=== PATIENT | male | born 1935 | race Caucasian/White ===

== ENCOUNTER → 2020-11-23 12:59 | Outpatient (BNVA) | payer MEDICARE, OTHER, SELFPAY | PROVIDERS: Family Provider Family Medicine; Referring Provider Family Medicine; Visit Provider Podiatrist Foot & Ankle Surgery | DX: M79.672 Pain in left foot (principal); M79.671 Pain in right foot | CPT/HCPCS: 73630 ==

== ENCOUNTER 2020-12-29 15:08 | Outpatient (CLI) | payer MEDICARE, OTHER, SELFPAY | END 2020-12-29 15:09 | disposition home or self-care (01) | LOC: SPT 15:09 | PROVIDERS: Family Provider Family Medicine; Visit Provider Podiatrist Foot & Ankle Surgery | DX: Z46.89 Encounter for fitting and adjustment of other specified devices (principal); M72.2 Plantar fascial fibromatosis | CPT/HCPCS: 97760; L4397 ==

== ENCOUNTER 2021-02-14 08:29 | Outpatient (CLI) | payer MEDICARE, OTHER, SELFPAY ==
[2021-02-14 10:09] LABS: Basophils % 0.6 %; Eosinophils # 0.2 10^3/uL (0.0-0.8); Eosinophils % 2.8 %; Hematocrit 44.4 % (42.0-52.0); Hemoglobin 14.7 g/dL (11.7-16.6); Lymphocytes # 1.3 10^3/uL (0.8-4.8); Lymphocytes % 19.3 %; Mean Corpuscular HGB Conc 33.1 g/dL (30.0-36.0); Mean Corpuscular Volume 96.5 fl (80-94); Mean Platelet Volume 11.3 fL (7.4-10.4); Monocytes # 0.5 10^3/uL (0.2-0.9); Monocytes % 7.6 %; Neutrophils # 4.52 10^3/uL (1.8-7.7); Neutrophils % 69.1 %; Nucleated Red Blood Cells % 0 %; Platelet Count 125 10^3/cmm (130-400); White Blood Count 6.5 10^3/uL (4.0-10.0)
[2021-02-14 10:10] LABS: Calcium 8.2 mg/dL (8.5-10.5)
[2021-02-14 10:14] LABS: Complement C3 120 mg/dL (90-180)
[2021-02-14 10:18] LABS: Parathyroid Hormone 208.3 pg/mL (15-65)
[2021-02-14 10:42] LABS: Bacteria Urine TRACE /hpf; Bilirubin Urine Neg (Negative); Blood Urine 2+ (Negative); Glucose Urine UA Norm (Normal); Ketones Urine 1+ (Negative); Leukocyte Esterase Urine Negative (Negative); Nitrate Urine Negative (Negative); Protein Urine 2+ (Negative); RBC Urine 0-4 /hpf (0-2); Urine Appearance Clear (CLEAR); Urine Color Yellow (Yellow); Urobilinogen Urine Norm (Negative); WBC Urine 0-4 /hpf (0-5); pH Urine 5 (5-7)
[2021-02-14 10:43] LABS: Creatinine Urine, Random 164 mg/dL (39-259)
[2021-02-14 10:56] LABS: Microalbum Creatinine Ratio Ur 311 mg/dL (0-20); Microalbumin Random Urine 51 ug/dL (0-20)
[2021-02-14 11:13] LABS: 25 Hydroxy Vitamin D 12 ng/mL (30-100)
[2021-02-15 15:08] LABS: KAPPA LIGHT CHAIN, FREE, SERUM 197.9 mg/L (3.3-19.4)
[2021-02-15 16:13] LABS: ALBUMIN 3.8 g/dL (3.8-4.8); ALPHA 1 GLOBULIN 0.3 g/dL (0.2-0.3); ALPHA 2 GLOBULIN 0.7 g/dL (0.5-0.9); BETA 1 GLOBULIN 0.4 g/dL (0.4-0.6); BETA 2 GLOBULIN 0.4 g/dL (0.2-0.5); GAMMA GLOBULIN 1.3 g/dL (0.8-1.7)
[2021-02-21 17:48] LABS: ANCA Screen NEGATIVE (NEGATIVE)
== END 2021-02-14 08:30 | disposition home or self-care (01) ==
PROVIDERS: PCP Family Medicine; Visit Provider Internal Medicine Nephrology
DX: N18.4 Chronic kidney disease, stage 4 (severe) (principal)
CPT/HCPCS: 36415; 81001; 82044; 82306; 82310; 83516; 83883; 83970; 84155; 84165; 85025; 86160

== ENCOUNTER 2021-04-12 10:03 | Outpatient (CLI) | payer MEDICARE, OTHER, SELFPAY ==
--- NOTE | 2021-04-12 10:09 | US_ITS ---
WS: [id number] RENAL ULTRASOUND HISTORY: CHRONIC KIDNEY DZ STAGE 4 COMPARISON: None available. TECHNIQUE: 2-D and color Doppler imaging of the kidney submitted. Right kidney: Prior RIGHT nephrectomy. No mass noted at the renal bed. Left kidney: 11.3 cm x 5.8 cm x 6.6 cm. Normal size kidney. Echogenicity throughout the kidney is greater than the liver. Poor cortical medul alessandra differentiation. Cortex remains normal at 1.8 cm. No hydronephrosis. No mass identified. Aorta: Mild atherosclerosis. No aneurysm. Urinary Bladder: Normal distention. US/US renal BI* [id number] IMPRESSION: 1. Status post RIGHT nephrectomy. 2. Normal size LEFT kidney but there is increased echogenicity suggesting [facility] renal disease.
== END 2021-04-12 10:04 | disposition home or self-care (01) ==
LOC: RAD 10:08
PROVIDERS: PCP Family Medicine; Visit Provider Internal Medicine Nephrology
DX: N18.4 Chronic kidney disease, stage 4 (severe) (principal); Z90.5 Acquired absence of kidney
CPT/HCPCS: 76770

== ENCOUNTER 2021-08-31 14:34 | Oncology outpatient (recurring) (ONCR) | payer MEDICARE, OTHER, SELFPAY | END 2021-08-31 23:59 | disposition home or self-care (01) | PROVIDERS: PCP Family Medicine; Visit Provider Internal Medicine Medical Oncology | DX: D47.2 Monoclonal gammopathy (principal); R74.8 Abnormal levels of other serum enzymes; R79.89 Other specified abnormal findings of blood chemistry; Z79.899 Other long term (current) drug therapy | CPT/HCPCS: 99204 ==

== ENCOUNTER 2022-10-23 12:54 | Inpatient (IN) | payer MEDICARE, OTHER, SELFPAY ==
[2022-10-23] VITALS (11 sets, daily range): BP systolic 105–148; BP diastolic 55–88; PULSE 60–82; RESP 16–20; TEMP 36.5–36.8; O2SAT 91–98; BMI 25.6
--- NOTE | 2022-10-23 13:01 | ECG_ITS ---
[facility] Test Date: 2022-10-23 Pat Name: Elvin Sanchez Department: Room: Gender: Male Solution Lead: : 1935 Requested By: Lokesh Brice Order Number: [id number] Chuck MD: Hong Lockhart M.D. Measurements Intervals [place] Rate: 81 P: 36 NE: 150 QRS: 13 QRSD: 82 T: 55 QT: 334 QTc: 388 Interpretive Statements SINUS RHYTHM LOW QRS VOLTAGE IN EXTREMITY LEADS [QRS DEFLECTION < 0.5 mV IN LIMB LEADS] ST ELEVATION, CONSIDER INFERIOR INJURY [MARKED ST ELEVATION W/O NORMALLY INFLECTED T-WAVE IN II/aVF] ACUTE ME No previous ECG available for comparison Electronically Signed On 10-23-2022 16:11:49 CDT by Hong Lockhart M.D. [id number]
--- NOTE | 2022-10-23 13:11 | XRR_ITS ---
PROCEDURE INFORMATION: Exam: XR Chest Exam date and time: 10/23/2022 1:54 PM Age: 86 years old Clinical indication: Pain; Angina pectoris; Additional info: Chest pain TECHNIQUE: Imaging protocol: Radiologic exam of the chest. Views: 1 view. COMPARISON: No relevant prior studies available. FINDINGS: Lungs: Unremarkable. No consolidation. Pleural spaces: Unremarkable. No pleural effusion. No pneumothorax. Heart/Mediastinum: Unremarkable. No cardiomegaly. Bones/joints: Unremarkable. XR/XR chest 1V portable [id number] IMPRESSION: No acute findings.
[2022-10-23] MEDS: aspirin 81 mg Chew Tablet 324 MG PO (13:17)
[2022-10-23] MEDS: heparin 5,000 unit/mL INJ 1 mL 4000 UNIT IVP (13:27)
[2022-10-23] MEDS: clopidogrel 300 mg Tablet 600 MG PO (13:28)
[2022-10-23 13:45] LABS: Basophils # 0.1 10^3/uL (0.0-0.1); Basophils % 0.7 %; Eosinophils # 0.2 10^3/uL (0.0-0.8); Eosinophils % 2.5 %; Hematocrit 44.3 % (42.0-52.0); Hemoglobin 14.4 g/dL (11.7-16.6); Lymphocytes # 1.5 10^3/uL (0.8-4.8); Lymphocytes % 17.6 %; Mean Corpuscular HGB Conc 32.5 g/dL (30.0-36.0); Mean Corpuscular Hemoglobin 31.6 pg (28.0-34.0); Mean Corpuscular Volume 97.1 fl (80-94); Mean Platelet Volume 11.4 fL (7.4-10.4); Monocytes # 0.7 10^3/uL (0.2-0.9); Monocytes % 8.4 %; Neutrophils # 5.93 10^3/uL (1.8-7.7); Neutrophils % 70.6 %; Nucleated Red Blood Cells % 0 %; Platelet Count 142 10^3/cmm (130-400); Red Blood Count 4.56 10^6/uL (4.1-5.3); Red Cell Distribution Width 13.9 % (12.1-15.1); White Blood Count 8.4 10^3/uL (4.0-10.0)
[2022-10-23 13:58] LABS: INR 1.03 (0.8-1.2)
[2022-10-23 13:59] LABS: Partial Thromboplastin Time 39.6 SECONDS (23.9-36.7)
[2022-10-23 14:11] LABS: Alanine Aminotransferase 9 U/L (0-41); Albumin Level 4.4 g/dL (3.5-5.2); Alkaline Phosphatase 69 U/L (40-130); Anion Gap 16.5 (5-19); Aspartate Amino Transferase 20 U/L (0-40); Blood Urea Nitrogen 32 mg/dL (8-23); Carbon Dioxide 20 mmol/L (22-29); Chloride 108 mmol/L (98-107); Creatine Phosphokinase 124 U/L (39-308); Glucose 122 mg/dL (65-115); NT Pro B Type Natriuretic Pept 3582 pg/mL (0-450); Osmolality Calculated 296 mOsm/kg (285-295); Potassium 5.5 mmol/L (3.5-5.1); Sodium 139 mmol/L (136-145); Total Bilirubin 0.4 mg/dL (0.15-1.2); Total Protein 7.4 g/dL (6.6-8.7)
[2022-10-23 14:12] LABS: Creatinine Clr Calc Pharmacy 20.5872
[2022-10-23 14:14] LABS: Troponin(5th) Baseline 717 ng/L (0-15)
[2022-10-23 14:27] LABS: CKMB 11.7 ng/mL (0-10.4); CKMB Relative Index 9.4 % (0.0-5.3)
--- NOTE | 2022-10-23 14:51 | P.HP_ITS ---
Providers/Chief Complaint Admitting Physician: Sulma Daniels MD Primary Care Provider: Phill Howard MD Chief Complaint: chest pain/pressure History of Present Illness Elvin Sanchez is a 86 year old male who presented to the emergency room with chief complaint of some chest tightness and pressure. He has no personal history of heart disease beyond development of some high blood pressure secondary to chronic kidney disease. He takes amlodipine daily. He has not had previous issues with chest pressure or discomfort but this past Sunday while eating pizza he had sudden onset of a tightness across his chest associated with some nausea. He decided to take some nitroglycerin that was at the house because of the chest pain and got immediate relief. The nitroglycerin belonged to his who a couple of years ago, not him. He felt okay after that. He let his family know about the pain on Sunday at [facility]. He had no chest pain or pressure on Sunday. Today when he got up he was not feeling very good. Despite this he went and had breakfast and made a plan to mow the yard today. He uses a riding lawnmower. At the beginning of the time in which she was cutting the grass he felt uncomfortable . He continued to cut the grass, completing it but during this timeframe the tightness in his chest became more significant. He said it was hurting quite a bit and he told his daughter about it when she stopped by. This time he had no associated symptoms. The daughter called Dr. Howard's clinic and they urged him to come to the emergency room. In the emergency room EKG showed ST segment changes in leads III and aVF and initial troponin was 717. At the present time patient is chest pain-free. He has never had anything like this before. He does have a history of gastroesophageal reflux disease for which he takes a PPI regularly but says this is nothing like the usual heartburn or indigestion that he might experience from time to time. In the emergency room he was given aspirin, Plavix and started on a heparin drip. Nitropaste was also placed. Request was made for admission for further evaluation and treatment. It should be noted that patient has a single kidney due to nephrectomy for renal cell cancer and chronic kidney disease stage IV with baseline creatinine around 3. Review of Systems General: Reports: Other (ROS as per HPI or as otherwise noted here) Const: Reports: fatigue; Denies: fever(s) or change in weight Eyes: Reports: change in vision (Vision not what it used to be but seems better with eyedrops for glaucoma); Denies: eye discomfort Card: Reports: edema (Left lower leg always swollen since had blood clot years ago); Denies: palpitations, dyspnea on exertion or orthopnea Resp: Denies: dyspnea GI: Denies: vomiting, constipation, hematochezia or melena : Denies: difficulty urinating or hematuria Skin/Breast: Reports: sores (Some minor sores) Neuro: Denies: numbness in extremities or weakness in extremities Mina/Lymph: Reports: easy bruising (Especially on arms) Medications/Allergies Home Medications Medication Instructions Recorded Confirmed Last Taken Type omeprazole 20 mg capsule,delayed 20 mg PO QAM 11/23/20 10/23/22 10/23/22 08:00 History release Night splint to left #1 ea 12/29/20 10/23/22 Unknown Rx amlodipine 10 mg tablet 5 mg PO QAM 10/23/22 10/23/22 10/23/22 08:00 History cholecalciferol (vitamin D3) 25 25 mcg PO QAM 10/23/22 10/23/22 10/23/22 History mcg (1,000 unit) tablet (Vitamin D3) latanoprost 0.005 % eye drops 1 drp ophthalmic (eye) BEDTIME 10/23/22 10/23/22 10/22/22 History Allergies Allergy/AdvReac Type Severity Reaction Status Date / Time Sulfa (Sulfonamide Allergy Intermediate Rash Verified 10/23/22 13:41 Antibiotics) PFSH Acute PFSH: Medical History (Updated 10/23/22 @ 17:29 by Sulma Daniels MD) CKD (chronic kidney disease) stage 4, GFR 15-29 ml/min GERD (gastroesophageal reflux disease) Glaucoma History of deep venous thrombosis (DVT) of distal vein of left lower extremity History of renal cell cancer Hyperparathyroidism due to renal insufficiency Monoclonal gammopathy elevated kappa/lambda ratio, evaluated by Dr Meyer in 08/2021, but made informed decision not to pursue further evaluation or consider potential treatment Secondary hypertension due to renal disease Single kidney Vitamin D deficiency due to chronic kidney disease Surgical History (Updated 10/23/22 @ 17:14 by Sulma Daniels MD) History of right nephrectomy (2003) S/P TURP (transurethral resection of prostate) x 2 Social History (Updated 10/23/22 @ 17:15 by Sulma Daniels MD) Smoking and tobacco status: current every day smoker smokeless tobacco Smokeless tobacco user: chewing tobacco Smokeless tobacco details: continues to use smokeless tobacco, quit smoking tobacco years ago Alcohol intake: never Substance/Drug Use: never Lives independently: Yes Household members: none Marital status: / Vitals/I&O/Wt Last Vital Signs Temp 98.0 F 10/23/22 13:03 Pulse 72 10/23/22 13:03 Resp 16 10/23/22 13:03 BP 143/83 10/23/22 13:03 Pulse Ox 98 10/23/22 13:03 O2 Del Method Room Air 10/23/22 13:03 Weight last 48 hrs Weight 85.729 kg Physical Exam Narrative: Patient is awake and alert, able to provide history himself. Oriented to person place and situation. Normocephalic. Extraocular movements are intact. Oropharynx with moist mucous membranes. Some tobacco noted around the teeth. Dentition intact. Neck is supple. Lungs are clear to auscultation bilaterally without any rales rhonchi or wheezes noted. Cardiovascular exam reveals a regular rate and rhythm without any murmurs gallops or rubs. No JVD noted. Pulses are 1+ and equal x4. Abdomen is soft, nontender with positive bowel sounds. Left lower extremity with pitting edema and larger in diameter than right lower extremity at mid calf. Left posterior calf tender to palpation as well. Loss of hair noted in a few hyperpigmented areas to both distal legs left more so than right. Brisk capillary refill bilaterally. Speech is clear, face and smile symmetric, moves all extremities, sensation intact to light touch both feet. Data 10/23/22 12:18 10/23/22 12:18 Other Labs: Radiology Impressions Chest X-Ray 10/23/22 13:11 IMPRESSION: No acute findings. Laboratory Results WBC 8.4 10^3/uL (4.0-10.0) 10/23/22 12:18 RBC 4.56 10^6/uL (4.1-5.3) 10/23/22 12:18 Hgb 14.4 g/dL (11.7-16.6) 10/23/22 12:18 Hct 44.3 % (42.0-52.0) 10/23/22 12:18 MCV 97.1 fl (80-94) H 10/23/22 12:18 MCH 31.6 pg (28.0-34.0) 10/23/22 12:18 MCHC 32.5 g/dL (30.0-36.0) 10/23/22 12:18 RDW 13.9 % (12.1-15.1) 10/23/22 12:18 Plt Count 142 10^3/cmm (130-400) 10/23/22 12:18 MPV 11.4 fL (7.4-10.4) H 10/23/22 12:18 Neut % (Auto) 70.6 % 10/23/22 12:18 Lymph % (Auto) 17.6 % 10/23/22 12:18 [place] % (Auto) 8.4 % 10/23/22 12:18 Eos % (Auto) 2.5 % 10/23/22 12:18 Baso % (Auto) 0.7 % 10/23/22 12:18 Neut # (Auto) 5.93 10^3/uL (1.8-7.7) 10/23/22 12:18 Lymph # (Auto) 1.5 10^3/uL (0.8-4.8) 10/23/22 12:18 [place] # (Auto) 0.7 10^3/uL (0.2-0.9) 10/23/22 12:18 Eos # (Auto) 0.2 10^3/uL (0.0-0.8) 10/23/22 12:18 Baso # (Auto) 0.1 10^3/uL (0.0-0.1) 10/23/22 12:18 Nucleated RBC % (auto) 0 % 10/23/22 12:18 Nucleated RBCs # 0.0 /100WBC 10/23/22 12:18 PT 13.80 SECONDS (12.1-14.9) 10/23/22 12:18 INR 1.03 (0.8-1.2) 10/23/22 12:18 APTT 39.6 SECONDS (23.9-36.7) H 10/23/22 12:18 Sodium 139 mmol/L (136-145) 10/23/22 12:18 Potassium 5.5 mmol/L (3.5-5.1) H 10/23/22 12:18 Chloride 108 mmol/L (98-107) H 10/23/22 12:18 Carbon Dioxide 20 mmol/L (22-29) L 10/23/22 12:18 Anion Gap 16.5 (5-19) 10/23/22 12:18 BUN 32 mg/dL (8-23) H 10/23/22 12:18 Creatinine 3.0 mg/dL (0.7-1.2) H 10/23/22 12:18 GFR Calculation Not Reportable 10/23/22 12:18 Glucose 122 mg/dL (65-115) H 10/23/22 12:18 Calculated Osmolality 296 mOsm/kg (285-295) H 10/23/22 12:18 Calcium 9.0 mg/dL (8.5-10.5) 10/23/22 12:18 Total Bilirubin 0.4 mg/dL (0.15-1.2) 10/23/22 12:18 AST 20 U/L (0-40) 10/23/22 12:18 ALT 9 U/L (0-41) 10/23/22 12:18 Alkaline Phosphatase 69 U/L (40-130) 10/23/22 12:18 Creatine Kinase 124 U/L (39-308) 10/23/22 12:18 CK-MB (CK-2) 11.7 ng/mL (0-10.4) H 10/23/22 12:18 CK-MB (CK-2) Rel Index 9.4 % (0.0-5.3) H 10/23/22 12:18 Troponin T Baseline 717 ng/L (0-15) H* 10/23/22 12:18 NT-Pro-B Natriuret Pep 3582 pg/mL (0-450) H 10/23/22 12:18 Total Protein 7.4 g/dL (6.6-8.7) 10/23/22 12:18 Albumin 4.4 g/dL (3.5-5.2) 10/23/22 12:18 Globulin 3.0 g/dL (1.3-4.6) 10/23/22 12:18 A&P Assessment and plan (1) Acute coronary syndrome: As evidenced by chest pain relieved with nitroglycerin, EKG changes and elevated troponin and CK-MB fraction. I suspect patient's initial event was likely Sunday when he first had pain, though difficult to say given that he completed mowing the yard today after the onset of pain. No prior history of coronary artery disease but does have secondary hypertension from renal disease and continues to chew tobacco. Pain was relieved with nitroglcerin (that was not his). (2) Elevated brain natriuretic peptide (BNP) level: Without a history of CHF. Does not describe orthopnea, PND or dyspnea on exertion currently. Has some lower extremity edema but is primarily in the left lower extremity and has been present for many years since he had a blood clot in that leg sometime ago. No prior values for comparison. (3) CKD (chronic kidney disease) stage 4, GFR 15-29 ml/min: Baseline creatinine around 3, has associated hyperparathyroidism, vitamin D deficiency and secondary hypertension. Was found to have monoclonal gammopathy during evaluation but made informed decision not to pursue further work-up or treatment consideration. Follows with nephrology outpatient. (4) Single kidney: Secondary to renal cell carcinoma treated with nephrectomy (5) Secondary hypertension due to renal disease: On chronic amlodipine (6) Glaucoma: On chronic latanoprost (7) GERD (gastroesophageal reflux disease): On chronic PPI Plan Mildly elevated blood sugar without a history of diabetes History of left lower extremity DVT with current left lower extremity edema and calf pain noted Inpatient admission Heparin drip has been initiated Aspirin, plavix, statin, nitrates Cardiology consultation, discussed with Dr. Oconnor Given single kidney and chronic kidney disease stage IV combined with patient's age, medical management may be the best approach. He would not want to consider hemodialysis. Discussed iinterplay of cardiac and renal disease and management of current symptoms/findings with patient and his daughter, answered questions they had. Explained further discussion will be had with Dr Oconnor and possible nephrology, depending on clinical course and options considered. Echocardiogram has been ordered Holding on initiation of beta-blockade in the event stress testing is considered Low rate of IV fluids, monitoring respiratory status closely, in the event cardiac catheterization is considered and given current hyperkalemia Monitor need for renal consultation during hospital stay, currently at baseline functioning per available information Hold home amlodipine while on other medications; anticipate this may be discontinued at discharge in favor of other pharmacological options for management in light of presentation Check lipid panel and A1c Monitor urine output closely Continue home latanoprost Continue home PPI Venous duplex of the left lower extremity Supportive care otherwise VTE prophylaxis: SCDs, currently on heparin drip GI Prophylaxis: Home PPI ordered Telemetry: Telemetry monitoring for arrhythmias in the setting of acute coronary syndrome [place]: Not currently indicated, currently monitoring renal function and urine output as could change Line(s): Peripheral IVs Disposition plan: Currently anticipate discharge home with outpatient follow-up with primary care provider and cardiology plus nephrology. Patient's goal is to get back home and maintain his independence as long as possible. Code Status: Allow natural as per patient's wishes which were discussed in the presence of his daughter and both were very clear about this Attestations Medical Necessity Statement*: Anticipated stay greater than two midnights in this 86-year-old who is quite independent presenting with 2 episodes of chest pain in the last few days found to have elevated troponin and EKG changes consistent with acute coronary syndrome. He has no prior history of coronary artery disease but does have chronic kidney disease stage IV and a single kidney which complicates current evaluation and management options as well as future treatment, as does his advanced age and limited lifetime exposure to various medications. Plans are as noted. Coding Level of Care Code 39871 High MDM includes number and complexity of problems actively addressed during encounter, amount and/or complexity of data reviewed/ordered [ previous or external records, resulted lab(s)/test(s), ordered lab(s)/test(s), independent historian (Daughter) and other healthcare professional discussion (Dr Oconnor)] and described risk of complication, morbidity or mortality of management (heparin drip) as documented and High Time for a total of 80 minutes, includes reviewing past or interval history, examining/interviewing patient, placing orders, counseling patient/family/other support, discussing plan of care with staff, communicating with other healthcare providers and documenting encounter Diagnoses Acute coronary syndrome I24.9 Elevated brain natriuretic peptide (BNP) level R79.89 CKD (chronic kidney disease) stage 4, GFR 15-29 ml/min N18.4 Single kidney Z90.5 Secondary hypertension due to renal disease I15.1 Glaucoma H40.9 GERD (gastroesophageal reflux disease) K21.9
[2022-10-23] MEDS: nitroglycerin 1 gm/inch oint Pkt 1 INCH TOPICAL ×2 (15:03→20:20)
[2022-10-23] MEDS: heparin drip 25,000 UNIT/500 ML PREMIX 41.15 UNIT IV (15:04)
--- NOTE | 2022-10-23 15:05 | USCV_ITS ---
Elvin Sanchez Age: 86 Gender: M : 1935 Exam Date: 10/23/2022 16:40 Ordering Phys: Sulma Daniels MD Technologist: Alfredo Watts Exam Location: [facility] [place] Indication: ACS BP: 148 / 87 HR: 76 Rhythm: Sinus Technical Quality: Adequate MEASUREMENTS (Male / Female) Normal Values 2D ECHO LVOT Diameter 2.1 cm LV Ejection Fraction MOD 2C 40.3 % LV Ejection Fraction 2C AL 40.4 % LA Diameter 3.3 cm LA Width 3.5 cm LA Height 4.5 cm RA Width 3.2 cm RA Height 4.0 cm Aorta at Sinotubular Diameter 2.4 cm M-MODE Aortic Annulus Diameter 2.9 cm LA Ao Ratio MM 1.1 MV E Point Septal Separation 1.0 cm DOPPLER AV Peak Velocity 127.0 cm/s LVOT Peak Velocity 79.0 cm/s AV Area Cont Eq vti 2.2 cm squared AV Area Cont Eq pk 2.1 cm squared MV Peak Velocity 107.0 cm/s MV Area PHT 5.6 cm squared Mitral E to A Ratio 0.7 MV E' Velocity 32.5 cm/s Mitral E to MV E' Ratio 8.8 Mitral E to LV E' Lateral Ratio 8.1 Mitral E to LV E' Septal Ratio 9.7 TR Peak Velocity 259.7 cm/s TR Peak Gradient 27.0 mmHg TR Mean Velocity 207.6 cm/s TR Mean Gradient 17.9 mmHg TR Velocity Time Integral 70.9 cm Right Atrial Pressure 8.0 mmHg Pulmonary Artery Systolic Pressu 35.0 mmHg PV Peak Velocity 121.3 cm/s RV Acceleration Time 0.1 s RV Ejection Time 0.3 s RV AcT/ET 0.4 FINDINGS Left Ventricle Diffuse hypokinesia of the left ventricular ejection fraction of 42%.Grade I/IV diastolic dysfunction (abnormal relaxation filling pattern), normal to mildly elevated filling pressures. Right Ventricle The right ventricle is normal in size and function. Right Atrium The right atrium is normal in size. Left Atrium The left atrium is normal in size. Mitral Valve No gross abnormalities noted Aortic Valve Thickened aortic valve. Tricuspid Valve No gross abnormalities noted Pulmonic Valve Pulmonic valve not well visualized. Pericardium Normal pericardium without effusion. Aorta Normal ascending aorta dimension. IVC The inferior vena cava appears normal. CONCLUSIONS Diffuse hypokinesia of the left ventricular ejection fraction of 42%.Grade I/IV diastolic dysfunction (abnormal relaxation filling pattern), normal to mildly elevated filling pressures. Thickened aortic valve. There is no pericardial effusion. There are no intracardiac masses. No similar previous studies are available for comparison Dr Renetta Oconnor MD FAC (Electronically Signed) Final Date: 23 October 2022 20:14 S
--- NOTE | 2022-10-23 15:10 | PC.NURSE ---
PT PLACED ON CONTINUOUS NIBP. SPO2, AND CM
--- NOTE | 2022-10-23 15:35 | ED_ITS ---
HPI - Chest Pain General: Chief Complaint: Chest Pain Stated Complaint: chest pain/pressure Time Seen by Provider: 10/23/22 13:10 Source: patient Mode of arrival: ambulatory History of Present Illness: 86-year-old male presents emergency room complaining intermittent chest pain day and a half ago in the evening he had been ate some pizza began to have chest pain he took a sublingual nitro resolved after a few minutes. Then today while he was riding a lawnmower he started having chest pain again. It resolved spontaneously without intervention. He has no known history of coronary artery disease he describes the chest discomfort is more of a tightness sensation he did not have any radiation into his neck arms or back no associated shortness of breath. Patient has a his history of an atrophic kidney and has been told his other kidney is not functioning well. He has no pain at the time he was first seen. MD complaint: chest pain Onset (ago): day(s) Timing of current episode: episodic Prior episodes: Yes Onset: during rest Pain location: substernal Pain radiation: none Severity: mild Quality: heaviness Relieving factors: nitroglycerin Exacerbating factors: nothing Associated symptoms: Deny abdominal pain, diaphoresis, dyspnea, fever(s), leg edema, nausea, palpitations, sense of impending doom, syncope or vomiting Review of Systems Const: Denies: fever(s), chills, fatigue, malaise or diaphoresis ENMT: Denies: throat pain, ear or mastoid pain, nasal discharge or nasal co ngestion Card: Reports: chest pain; Denies: palpitations, irregular heart rhythm, edema or syncope Resp: Denies: dyspnea, productive cough or non-productive cough GI: Denies: abdominal pain, nausea or vomiting : Denies: flank pain, dysuria, urinary frequency or urinary urgency Skin/Breast: Denies: rash or pruritus PFSH ED PFSH: Medical History CKD (chronic kidney disease) stage 4, GFR 15-29 ml/min GERD (gastroesophageal reflux disease) Glaucoma History of renal cell cancer Hyperparathyroidism due to renal insufficiency Monoclonal gammopathy Vitamin D deficiency due to chronic kidney disease Surgical History History of right nephrectomy (2003) S/P TURP (transurethral resection of prostate) Social History Smoking and tobacco status: former smoker Quit status (tobacco): has quit using tobacco Second hand smoke exposure: No Alcohol intake: unknown Substance/Drug Use: never Adopted: No Lives independently: Yes Household members: none Marital status: / Physical Exam Const: COMMON NORMALS: no acute distress GENERAL APPEARANCE: cooperative and comfortable ORIENTATION/CONSCIOUSNESS: Yes awake, Yes oriented to person, Yes oriented to place and Yes oriented to time HENMT: COMMON NORMALS: normocephalic, atraumatic and hearing grossly normal bilaterally HEAD & SCALP: normocephalic and atraumatic Resp: COMMON NORMALS: normal respiratory effort, No retractions, No use of accessory muscles and clear to auscultation bilaterally AUSCULTATION: clear to auscultation bilaterally Cardio: COMMON NORMALS: regular rate, regular rhythm and No murmurs present (Cardio) RATE: regular rate RHYTHM: regular rhythm GI: COMMON NORMALS: Soft to palpation and No hepatosplenomegaly present AUSCULTATION: Yes normoactive bowel sounds PALPATION: Yes Soft to palpation, No Tenderness to palpation present (GI), No Guarding due to palpation present (GI) and Yes No hepatosplenomegaly present Extremity: COMMON NORMALS: normal to inspection, capillary refill normal, no clubbing, cyanosis or edema, no calf tenderness and no pedal edema Neuro: SENSORIUM/ORIENTATION: Yes oriented to person, Yes oriented to place and Yes oriented to time Skin: COMMON NORMALS: no rashes or lesions noted GENERAL SKIN EXAM: no rashes or lesions noted Course Vital Signs: Vital signs: Vital Signs Temperature 98.0 F 10/23/22 13:03 Pulse Rate 79 10/23/22 15:03 Respiratory Rate 16 10/23/22 13:03 Blood Pressure 148/87 10/23/22 15:03 Pulse Oximetry 98 10/23/22 13:03 Oxygen Delivery Me thod Room Air 10/23/22 13:03 MDM - Chest Pain Medical Decision Making Initial EKG does show ST elevation in 2 3 and aVF but there is no reciprocal changes the patient has no pain at this time no no-show in the EKG asked him to bring him back immediately they reported he was pain-free at the moment when I seen the patient in the room he continues to be pain-free repeat repeat EKG shows 1 mm of elevation in 3 and aVF without reciprocal changes. I faxed these to Dr. Gill. We discussed the case and asked us to call a STEMI. We did call a STEMI the patient advised loss of the kidney health. After this while we were beginning her interventions and further history taking. Dr. Gill arrived the patient is still pain-free after he seen the patient and we discussed his history of chronic kidney disease he felt that we should wait lateral on laboratory studies rather than proceeding directly to the [facility]. Patient was loaded with Plavix given heparin and aspirin. First troponin is greater than 700 patient continues to be pain-free. His creatinine is 3 with a GFR of 20. He has very concerning unstable angina symptoms and does have risk factors. Patient will be admitted to [facility] by hospitalist service consult to Dr. Oconnor. Discussed results and plan with patient and family. Of also discussed Dr. stallworth will admit for hospitalist service Medical Records I reviewed the patient's medical records. Lab Data I reviewed the patient's lab results. 10/23/22 12:18 10/23/22 12:18 Radiology Impressions Chest X-Ray 10/23/22 13:11 IMPRESSION: No acute findings. Laboratory Results WBC 8.4 10^3/uL (4.0-10.0) 10/23/22 12:18 RBC 4.56 10^6/uL (4.1-5.3) 10/23/22 12:18 Hgb 14.4 g/dL (11.7-16.6) 10/23/22 12:18 Hct 44.3 % (42.0-52.0) 10/23/22 12:18 MCV 97.1 fl (80-94) H 10/23/22 12:18 MCH 31.6 pg (28.0-34.0) 10/23/22 12:18 MCHC 32.5 g/dL (30.0-36.0) 10/23/22 12:18 RDW 13.9 % (12.1-15.1) 10/23/22 12:18 Plt Count 142 10^3/cmm (130-400) 10/23/22 12:18 MPV 11.4 fL (7.4-10.4) H 10/23/22 12:18 Neut % (Auto) 70.6 % 10/23/22 12:18 Lymph % (Auto) 17.6 % 10/23/22 12:18 [place] % (Auto) 8.4 % 10/23/22 12:18 Eos % (Auto) 2.5 % 10/23/22 12:18 Baso % (Auto) 0.7 % 10/23/22 12:18 Neut # (Auto) 5.93 10^3/uL (1.8-7.7) 10/23/22 12:18 Lymph # (Auto) 1.5 10^3/uL (0.8-4.8) 10/23/22 12:18 [place] # (Auto) 0.7 10^3/uL (0.2-0.9) 10/23/22 12:18 Eos # (Auto) 0.2 10^3/uL (0.0-0.8) 10/23/22 12:18 Baso # (Auto) 0.1 10^3/uL (0.0-0.1) 10/23/22 12:18 Nucleated RBC % (auto) 0 % 10/23/22 12:18 Nucleated RBCs # 0.0 /100WBC 10/23/22 12:18 PT 13.80 SECONDS (12.1-14.9) 10/23/22 12:18 INR 1.03 (0.8-1.2) 10/23/22 12:18 APTT 39.6 SECONDS (23.9-36.7) H 10/23/22 12:18 Sodium 139 mmol/L (136-145) 10/23/22 12:18 Potassium 5.5 mmol/L (3.5-5.1) H 10/23/22 12:18 Chloride 108 mmol/L (98-107) H 10/23/22 12:18 Carbon Dioxide 20 mmol/L (22-29) L 10/23/22 12:18 Anion Gap 16.5 (5-19) 10/23/22 12:18 BUN 32 mg/dL (8-23) H 10/23/22 12:18 Creatinine 3.0 mg/dL (0.7-1.2) H 10/23/22 12:18 GFR Calculation Not Reportable 10/23/22 12:18 Glucose 122 mg/dL (65-115) H 10/23/22 12:18 Calculated Osmolality 296 mOsm/kg (285-295) H 10/23/22 12:18 Calcium 9.0 mg/dL (8.5-10.5) 10/23/22 12:18 Total Bilirubin 0.4 mg/dL (0.15-1.2) 10/23/22 12:18 AST 20 U/L (0-40) 10/23/22 12:18 ALT 9 U/L (0-41) 10/23/22 12:18 Alkaline Phosphatase 69 U/L (40-130) 10/23/22 12:18 Creatine Kinase 124 U/L (39-308) 10/23/22 12:18 CK-MB (CK-2) 11.7 ng/mL (0-10.4) H 10/23/22 12:18 CK-MB (CK-2) Rel Index 9.4 % (0.0-5.3) H 10/23/22 12:18 Troponin T Baseline 717 ng/L (0-15) H* 10/23/22 12:18 Troponin T 120 Minute Cancelled 10/23/22 14:31 Delta Troponin T Cancelled 10/23/22 14:31 NT-Pro-B Natriuret Pep 3582 pg/mL (0-450) H 10/23/22 12:18 Total Protein 7.4 g/dL (6.6-8.7) 10/23/22 12:18 Albumin 4.4 g/dL (3.5-5.2) 10/23/22 12:18 Globulin 3.0 g/dL (1.3-4.6) 10/23/22 12:18 Discharge Plan Discharge Admit Provider: Sulma Daniels Condition: Stable Coding Level of Care Code ED Cut Off Machine Operator for Paula Robb
[2022-10-23 16:19] LABS: Troponin 5 2HR 649.4 ng/L (0-15)
--- NOTE | 2022-10-23 16:31 | ECG_ITS ---
Test Date: 2022-10-23 Pat Name: Elvin Sanchez Department: Room: 112 Gender: Male Donor Specialist: : 1935 Requested By: Lokesh Brice Order Number: [id number] Chuck MD: Destiney Desir M.D. Measurements Intervals [place] Rate: 75 P: 43 MA: 153 QRS: 20 QRSD: 98 T: 57 QT: 367 QTc: 412 Interpretive Statements SINUS RHYTHM WITH FREQUENT VENTRICULAR PREMATURE COMPLEXES ABNORMAL RHYTHM ECG Compared to ECG 10/23/2022 13:01:05 Ventricular premature complex(es) now present ST (T wave) deviation no longer present Myocardial infarct finding no longer present Electronically Signed On 10-23-2022 16:35:13 CDT by Destiney Desir M.D. [id number]
--- NOTE | 2022-10-23 16:51 | USCV_ITS ---
Elvin Sanchez Age: 86 Gender: M : 1935 Exam Date: 10/23/2022 19:13 Ordering Phys: Sulma Daniels MD Technologist: ROSALES [place] [facility] [place]: LEFT posteromedial heel pain. History of LLE DVT 5 or 6 years ago. HISTORY: LEFT posteromedial heel pain. History of LLE DVT 5 or 6 years ago. PROCEDURES: Venous duplex imaging was performed in only the left lower extremity. The following venous structures were evaluated: common femoral vein, profunda vein, proximal portion of the greater saphenous vein, superficial femoral vein, and the popliteal vein. In addition, the posterior tibial and peroneal veins were evaluated. FINDINGS: Evidence of indeterminate partial deep vein thrombosis in the left popliteal vein with abnormal flow dynamics. 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 No acute DVT. CONCLUSIONS Age indeterminate left popliteal vein thrombus, most likely chronic but small acute component not excluded. Chronic changes in the left SFV, no acute DVT. Dr. Sharon Oquendo DO (Electronically Signed) Final Date: 24 October 2022 09:50 S
[2022-10-23] MEDS: sodium chloride 0.9% 1,000 ML 50 ML IV (17:11)
--- NOTE | 2022-10-23 18:38 | P.CONIM_ITS ---
Providers/Reason For Consult Consulting Physician/Specialty*: BRIAN Oconnor MD/cardiology Reason for Consult*: Patient with chest pain, elevated troponin T Requesting Physician: Dr. Daniels Attending Physician: Sulma Daniels MD Primary Care Provider: Phill Howard MD History of Present Illness History of Present Illness Elvin Sanchez is a 86 year old male history of renal cell carcinoma, status post nephrectomy, chronic kidney disease and elevated blood pressure, is presenting with complaints of recurrent episodes of chest pain. He was found to have elevated troponin T. Cardiology consult is requested for further cardiac evaluation recommendations. This patient apparently has been in his baseline state of health up until last Sunday evening when he had the first episode of chest pain. According to the patient, he had some pizza for dinner. Half an hour later, he started having pain in the upper substernal region, radiating across the chest, associated some shortness of breath. It was a pressure-like pain of moderate intensity. He took one sublingual nitroglycerin tablet belonged to his late . Within a minute or 2, he got relief of the symptoms. The pain might have lasted for a total of 15 minutes or so. For the rest of the night, he was feeling fine. He went to hoahaoism yesterday and did not have any symptoms. This morning he was doing some lawn mowing and moved some heavy objects. He started having the pain similar to what he had on last Sunday. The intensity was less severe. Because of the recurrence of these episodes of pain, he called his daughter, who brought him to the emergency room. Has not had any recurrence of chest pain since then. Patient has no previous history for coronary disease, myocardial infarction or congestive heart failure. He had a unilateral nephrectomy in 2004 for renal cell carcinoma. He has been seeing a wire products inspector since then. 2 years ago, he was placed on amlodipine for elevated blood pressure. He has no history for dyslipidemia, type 2 diabetes, severe peripheral artery disease. No history for bleeding disorders. He is known to have GERD. He has no significant family history. Denies any smoking abuse or alcohol abuse. Review of Systems Narrative: CONSTITUTIONAL: No fever or chills. EYES: No blurring of vision or other visual disturbances lately. ENT: No hoarseness of voice, auditory disturbances or sore throat. CARDIOVASCULAR: As mentioned above. RESPIRATORY: No significant cough. GASTROINTESTINAL: History of GERD as mentioned above GENITOURINARY: Status post nephrectomy and chronic kidney disease as mentioned above INTEGUMENTARY: No skin rashes or history of skin cancer. NEURO: No transient ischemic attacks or amaurosis. PSYCHIATRIC: No history of psychosis or major depression. HEMATOLOGIC: No bleeding disorders or significant anemia. ENDOCRINE: History of hyperparathyroidism MUSCULOSKELETAL: No recent joint pain or swelling. ALLERGY/IMMUNOLOGY: As mentioned above. Medications/Allergies Home Medications Medication Instructions Recorded Confirmed Last Taken Type omeprazole 20 mg capsule,delayed 20 mg PO QAM 11/23/20 10/23/22 10/23/22 08:00 History release Night splint to left #1 ea 12/29/20 10/23/22 Unknown Rx amlodipine 10 mg tablet 5 mg PO QAM 10/23/22 10/23/22 10/23/22 08:00 History cholecalciferol (vitamin D3) 25 25 mcg PO QAM 10/23/22 10/23/22 10/23/22 History mcg (1,000 unit) tablet (Vitamin D3) latanoprost 0.005 % eye drops 1 drp ophthalmic (eye) BEDTIME 10/23/22 10/23/22 10/22/22 History Allergies Allergy/AdvReac Type Severity Reaction Status Date / Time Sulfa (Sulfonamide Allergy Intermediate Rash Verified 10/23/22 13:41 Antibiotics) Current Medications Generic Name Dose Route Start Last Admin Trade Name Freq PRN Reason Stop Dose Admin Docusate Sodium 100 mg 10/23/22 18:00 10/23/22 18:15 Docusate Sodium 100 Mg Capsule PO Not Given BID MATT Heparin Sodium/Sodium Chloride 25,000 unit in 500 mls @ 0 mls/hr 10/23/22 15:00 10/23/22 15:04 Heparin Drip IV 24 unit/kg/hr .Q0M MATT 41.15 mls/hr Administration Protocol Per Protocol Sodium Chloride 1,000 mls @ 50 mls/hr 10/23/22 16:35 10/23/22 17:11 Sodium Chloride 0.9% IV 10/25/22 08:34 50 mls/hr .Q20H MATT Administration PFSH Acute PFSH: Medical History CKD (chronic kidney disease) stage 4, GFR 15-29 ml/min GERD (gastroesophageal reflux disease) Glaucoma History of deep venous thrombosis (DVT) of distal vein of left lower extremity History of renal cell cancer Hyperparathyroidism due to renal insufficiency Monoclonal gammopathy elevated kappa/lambda ratio, evaluated by Dr Meyer in 08/2021, but made informed decision not to pursue further evaluation or consider potential treatment Secondary hypertension due to renal disease Single kidney Vitamin D deficiency due to chronic kidney disease Surgical History History of right nephrectomy (2003) S/P TURP (transurethral resection of prostate) x 2 Social History Smoking and tobacco status: current every day smoker smokeless tobacco Smokele ss tobacco user: chewing tobacco Smokeless tobacco details: continues to use smokeless tobacco, quit smoking tobacco years ago Alcohol intake: never Substance/Drug Use: never Lives independently: Yes Household members: none Marital status: / Vitals/I&O/Wt Last Vital Signs Temp 97.7 F 10/23/22 16:35 Pulse 75 10/23/22 16:35 Resp 20 H 10/23/22 16:35 BP 133/83 10/23/22 16:35 Pulse Ox 96 10/23/22 16:35 O2 Del Method Room Air 10/23/22 16:36 10/23/22 10/23/22 10/23/22 06:59 14:59 22:59 Intake Total 120 / 120 Balance 120 / 120 Weight last 48 hrs Weight 189 lb Physical Exam Narrative: GENERAL: The patient is alert and oriented times three. Not in any acute distress. HEENT: No significant pallor, icterus or lymphadenopathy.Oral cavity: There are no mucous membrane lesions. NECK: Trachea appears to be central. No masses noted. No JVD or thyromegaly appreciated. RESPIRATORY: Chest is symmetrical. No intercostals muscle retraction or any accessory muscle activation. There is no chest wall tenderness. Breath sounds are heard bilaterally. No rales or rhonchi heard. No evidence of any consolidation. BREASTS: Deferred. HEART: The heart sounds are normal. No S3 or S4. Short systolic murmur at the base of the heart. No diastolic murmurs. No pericardial rub ABDOMEN: No vessel pulsations or distention. No tenderness. No organomegaly appreciated. Bowel sounds are normally heard. : Deferred. RECTAL: Deferred. LYMPHATIC: No lymphadenopathy noted in the neck. EXTREMITIES: No edema or cyanosis. No clubbing. MUSCULOSKELETAL: No acute joint deformities or swelling SKIN: There are no significant rashes or ecchymosis NEUROPSYCHIATRIC: The patient is alert and oriented x3. Appears to be in a good mood. No tremors or rigidity noted. Data 10/23/22 12:18 10/23/22 12:18 Other Labs: Laboratory Last Values WBC 8.4 10^3/uL (4.0-10.0) 10/23/22 12:18 RBC 4.56 10^6/uL (4.1-5.3) 10/23/22 12:18 Hgb 14.4 g/dL (11.7-16.6) 10/23/22 12:18 Hct 44.3 % (42.0-52.0) 10/23/22 12:18 MCV 97.1 fl (80-94) H 10/23/22 12:18 MCH 31.6 pg (28.0-34.0) 10/23/22 12:18 MCHC 32.5 g/dL (30.0-36.0) 10/23/22 12:18 RDW 13.9 % (12.1-15.1) 10/23/22 12:18 Plt Count 142 10^3/cmm (130-400) 10/23/22 12:18 MPV 11.4 fL (7.4-10.4) H 10/23/22 12:18 Neut % (Auto) 70.6 % 10/23/22 12:18 Lymph % (Auto) 17.6 % 10/23/22 12:18 [place] % (Auto) 8.4 % 10/23/22 12:18 Eos % (Auto) 2.5 % 10/23/22 12:18 Baso % (Auto) 0.7 % 10/23/22 12:18 Neut # (Auto) 5.93 10^3/uL (1.8-7.7) 10/23/22 12:18 Lymph # (Auto) 1.5 10^3/uL (0.8-4.8) 10/23/22 12:18 [place] # (Auto) 0.7 10^3/uL (0.2-0.9) 10/23/22 12:18 Eos # (Auto) 0.2 10^3/uL (0.0-0.8) 10/23/22 12:18 Baso # (Auto) 0.1 10^3/uL (0.0-0.1) 10/23/22 12:18 Nucleated RBC % (auto) 0 % 10/23/22 12:18 Nucleated RBCs # 0.0 /100WBC 10/23/22 12:18 PT 13.80 SECONDS (12.1-14.9) 10/23/22 12:18 INR 1.03 (0.8-1.2) 10/23/22 12:18 APTT 39.6 SECONDS (23.9-36.7) H 10/23/22 12:18 Sodium 139 mmol/L (136-145) 10/23/22 12:18 Potassium 5.5 mmol/L (3.5-5.1) H 10/23/22 12:18 Chloride 108 mmol/L (98-107) H 10/23/22 12:18 Carbon Dioxide 20 mmol/L (22-29) L 10/23/22 12:18 Anion Gap 16.5 (5-19) 10/23/22 12:18 BUN 32 mg/dL (8-23) H 10/23/22 12:18 Creatinine 3.0 mg/dL (0.7-1.2) H 10/23/22 12:18 GFR Calculation Not Reportable 10/23/22 12:18 Glucose 122 mg/dL (65-115) H 10/23/22 12:18 Calculated Osmolality 296 mOsm/kg (285-295) H 10/23/22 12:18 Calcium 9.0 mg/dL (8.5-10.5) 10/23/22 12:18 Total Bilirubin 0.4 mg/dL (0.15-1.2) 10/23/22 12:18 AST 20 U/L (0-40) 10/23/22 12:18 ALT 9 U/L (0-41) 10/23/22 12:18 Alkaline Phosphatase 69 U/L (40-130) 10/23/22 12:18 Creatine Kinase 124 U/L (39-308) 10/23/22 12:18 CK-MB (CK-2) 11.7 ng/mL (0-10.4) H 10/23/22 12:18 CK-MB (CK-2) Rel Index 9.4 % (0.0-5.3) H 10/23/22 12:18 Troponin T Baseline 717 ng/L (0-15) H* 10/23/22 12:18 Troponin T 120 Minute 649.4 ng/L (0-15) H 10/23/22 15:10 Delta Troponin T -67.6 ABS# (0-10) L 10/23/22 15:10 NT-Pro-B Natriuret Pep 3582 pg/mL (0-450) H 10/23/22 12:18 Total Protein 7.4 g/dL (6.6-8.7) 10/23/22 12:18 Albumin 4.4 g/dL (3.5-5.2) 10/23/22 12:18 Globulin 3.0 g/dL (1.3-4.6) 10/23/22 12:18 EKG 1: My Interpretation: Normal sinus rhythm with a rate of 81 bpm. Half to [address] elevation in leads II, III and aVF. Some nonspecific ST depression in the high lateral leads. EKG 2: My Interpretation: Normal sinus rhythm with a rate of 75 bpm. Frequent PVCs. Some nonspecific ST changes in the high lateral leads. No ST elevations in the inferior leads. A&P Assessment and plan (1) Unstable angina pectoris due to coronary arteriosclerosis: Patient's symptoms are consistent with with unstable angina. Currently he is pain-free. EKG changes are nonspecific at this time. He seems to have more frequent PVCs on the monitor. Agree with heparin, Plavix, aspirin, beta-sebas and statin. Need to have close monitoring on telemetry. (2) Acute non-ST elevation myocardial infarction (NSTEMI): Celso the echocardiogram to evaluate LV function. Continue on the medications as mentioned above. Patient has a significant elevation of the troponin T. (3) CKD (chronic kidney disease) stage 4, GFR 15-29 ml/min: This needs to be closely monitored. (4) GERD (gastroesophageal reflux disease): May continue on the current management. (5) Monoclonal gammopathy: Continue on the current management (6) Ventricular arrhythmia: I may go ahead and start him on metoprolol and Mag-Tab SR 84 mg 2 tablets p.o. daily. The rhythm will be closely monitored on telemetry. P.o. twice daily Plan In view of the patient's clinical presentation and the abnormal objective findings, in order to further evaluate his coronary status, he requires a cardiac catheterization. This was discussed with the patient in detail with the risk and benefits. In view of his stage IV kidney disease and single kidney, he carries a higher risk for contrast-induced nephropathy/acute kidney injury requiring dialysis. Patient is wanting to hold off on the angiogram if at all possible. He understands the risk of recurrence of myocardial infarction and other concomitant complications. He would like to be managed medically at this point. He and his daughter seem to understand the implications well. Consult Attestations Medical Necessity Statement: Based on his clinical progress further recommendations will be made. Thank you for the opportunity to evaluate this patient and make these recommendations Coding Level of Care Code 68929 Diagnoses Unstable angina pectoris due to coronary arteriosclerosis I25.110 Acute non-ST elevation myocardial infarction (NSTEMI) I21.4 CKD (chronic kidney disease) stage 4, GFR 15-29 ml/min N18.4 GERD (gastroesophageal reflux disease) K21.9 Monoclonal gammopathy D47.2 Ventricular arrhythmia I49.9
[2022-10-23 20:38] LABS: Troponin 5 6HR 648.5 ng/L (0-15)
[2022-10-23] MEDS: latanoprost 0.005% Op Soln 2.5 mL Btl 1 DROP EYE-BOTH (21:42)
[2022-10-23] MEDS: atorvastatin 40 mg Tablet PO (21:42)
[2022-10-24] VITALS (7 sets, daily range): BP systolic 130–169; BP diastolic 72–81; PULSE 64–75; RESP 18–23; TEMP 36.6–36.8; O2SAT 22–96
--- NOTE | 2022-10-24 02:09 | PC.NURSE ---
Restarted heparin 10units/kg/hr, 17mL/hr. Mar was adjusted to match IV pump.
[2022-10-24] MEDS: nitroglycerin 1 gm/inch oint Pkt 1 INCH TOPICAL ×2 (03:11→09:12)
[2022-10-24 04:35] LABS: Basophils # 0.1 10^3/uL (0.0-0.1); Basophils % 0.7 %; Eosinophils # 0.3 10^3/uL (0.0-0.8); Eosinophils % 4.3 %; Hemoglobin 12.9 g/dL (11.7-16.6); Lymphocytes # 1.5 10^3/uL (0.8-4.8); Lymphocytes % 23.1 %; Mean Corpuscular HGB Conc 31.5 g/dL (30.0-36.0); Mean Corpuscular Hemoglobin 30.9 pg (28.0-34.0); Mean Corpuscular Volume 98.1 fl (80-94); Mean Platelet Volume 12.3 fL (7.4-10.4); Monocytes # 0.6 10^3/uL (0.2-0.9); Monocytes % 9.3 %; Neutrophils # 4.16 10^3/uL (1.8-7.7); Neutrophils % 62.3 %; Nucleated Red Blood Cells % 0 %; Platelet Count 116 10^3/cmm (130-400); Red Blood Count 4.18 10^6/uL (4.1-5.3); Red Cell Distribution Width 13.8 % (12.1-15.1); White Blood Count 6.7 10^3/uL (4.0-10.0)
[2022-10-24 04:51] LABS: Chol HDL Ratio 5.52 mg/dL (1.0-5.00); Cholesterol 160 mg/dL (0-200); HDL Cholesterol 29 mg/dL (60-100); LDL Cholesterol Calculated 109 mg/dL (50-129); LDL HDL Ratio 3.76 RATIO (0.00-3.22); Triglycerides 108 mg/dL (0-150)
[2022-10-24 04:58] LABS: Estmated Average Glucose 134; Hemoglobin A1C 6.3 % (4.0-6.0)
[2022-10-24 05:07] LABS: Magnesium 1.8 mg/dL (1.7-2.3)
[2022-10-24 05:26] LABS: Anion Gap 16.1 (5-19); Blood Urea Nitrogen 32 mg/dL (8-23); Calcium 8.6 mg/dL (8.5-10.5); Carbon Dioxide 17 mmol/L (22-29); Chloride 114 mmol/L (98-107); Glucose 102 mg/dL (65-115); Osmolality Calculated 301 mOsm/kg (285-295); Phosphorus 3.4 mg/dL (2.5-4.5); Potassium 5.1 mmol/L (3.5-5.1); Sodium 142 mmol/L (136-145)
[2022-10-24] MEDS: pantoprazole DR 40 mg Tablet PO (06:04)
[2022-10-24] MEDS: aspirin 81 mg EC Tablet PO (09:11)
[2022-10-24] MEDS: magnesium lactate 84 mg Tablet PO (09:11)
[2022-10-24] MEDS: metoprolol tartrate 25 mg Tablet PO (09:11)
--- NOTE | 2022-10-24 09:57 | PC.CHAP ---
Pastoral Care Encounter/Spiritual Assessment Type of Contact [] Declined ditch digger visit [] Patient/Family/Request visit [] Outpatient visit [] Follow-up visit [] Physician referral [] Code/Alert [x] Routine visit [] Staff referral [] Actively dying [] Patient sleeping [] Family support [] [] Out of room [] Palliative care [] [] Receiving care in room [] Pre-surgical visit [] Trauma [] Long length of stay [] ICU visit [] Other: Relational/Emotional Strength [x] Patient feels connected with others/family/visitors/staff [] Distress [] Loneliness/isolation [] Abandonment Spirituality of Patient [x] Person of Skye [] Attends Voodoo of their Skye [x] Believes in Prayer [] Reads Bible or Mu-Ism materials [] There are Spiritual issues to be addressed Health Psychologist Interventions [x] Prayer [x] Active listening [] Non-anxious presence [x] Spiritual/emotional support [] Crisis/trauma care [] Spiritual counseling [] Bereavement support [] Provided bereavement packet [] Provided Bible/devotional materials [] Provided toy/stuffed animal, coloring book to patient or family member [] Provided Communion [] Anointing/Jerome [] Salvation [x] Completed spiritual assessment [] Other: Impact on Illness or Injury [] Angry [] Fearful [] Anxious [] Often cries [] Exhaustion [] Unable to work [] Unable to attend yarsani [] Unable to walk/stand [] Unable to read [] Unable to drive [] Unable to eat/drink [] Unable to sleep [] Unable to be with family [] Patient intubated [] Other: Summary Time spent with patient 5 min
[2022-10-24 11:21] LABS: Partial Thromboplastin Time 51.3 SECONDS (23.9-36.7)
--- NOTE | 2022-10-24 13:40 | P.PN_ITS ---
Subjective Subjective: The patient is feeling okay. Has no chest pain or chest tightness. No unusual shortness of breath. Telemetry shows sinus rhythm with occasional PVCs. No new arrhythmias are noted on the monitor. The echocardiogram from yesterday revealed diffuse hypokinesia left ventricular ejection fraction of 42%. Medications: Medication Review Details: Current Medications Acetaminophen (Acetaminophen 325 Mg Tablet) 650 mg PO Q6H PRN PRN Reason: Mild/Mod Pain Or Temp >/= 101 Aspirin (Aspirin 81 Mg Ec Tablet) 81 mg PO DAILY [facility] Last Admin: 10/24/22 09:11 Dose: 81 mg Atorvastatin Calcium (Atorvastatin 40 Mg Tablet) 40 mg PO BEDTIME [facility] Last Admin: 10/23/22 21:42 Dose: 40 mg Bisacodyl (Bisacodyl 5 Mg Tablet) 10 mg PO DAILY PRN; Protocol PRN Reason: Constipation (see protocol) Calcium Carbonate (Calcium Carbonate 500 Mg Chew Tablet) 1,000 mg PO Q4H PRN PRN Reason: DYSPEPSI Docusate Sodium (Docusate Sodium 100 Mg Capsule) 100 mg PO BID [facility] Last Admin: 10/24/22 09:21 Dose: Not Given Heparin Sodium (Porcine) (Heparin 5,000 Unit/Ml Inj 1 Ml) 0 unit IV PRN PRN; Protocol PRN Reason: Heparin weight-base protocol Heparin Sodium/Sodium Chloride (Heparin Drip) 25,000 unit in 500 mls @ 0 mls/hr IV .Q0M [facility]; Protocol Last Titration: 10/24/22 12:10 Dose: 10.5 unit/kg/hr, 18 mls/hr Sodium Chloride (Sodium Chloride 0.9%) 1,000 mls @ 50 mls/hr IV .Q20H [facility] Stop: 10/25/22 08:34 Last Infusion: 10/24/22 12:22 Dose: Infused Latanoprost (Latanoprost 0.005% Op Soln 2.5 Ml Btl) 1 drop EYE-BOTH BEDTIME [facility] Last Admin: 10/23/22 21:42 Dose: 1 drop Magnesium Lactate (Magnesium Lactate 84 Mg Tablet) 84 mg PO BID [facility] Last Admin: 10/24/22 09:11 Dose: 84 mg Metoprolol Tartrate (Metoprolol Tartrate 25 Mg Tablet) 25 mg PO BID [facility] Last Admin: 10/24/22 09:11 Dose: 25 mg Nitroglycerin (Nitroglycerin 1 Gm/Inch Oint Pkt) 1 inch TOPICAL Q6H [facility] Last Admin: 10/24/22 09:12 Dose: 1 inch Ondansetron HCl (Ondansetron 2 Mg/Ml Sdv 2 Ml) 4 mg IVP Q8H PRN PRN Reason: vomiting, or N/V if npo Pantoprazole Sodium (Pantoprazole Dr 40 Mg Tablet) 40 mg PO QAM [facility] Last Admin: 10/24/22 06:04 Dose: 40 mg Vitals/I&O/Wt Last Vital Signs Temp 97.8 F 10/24/22 08:00 Pulse 69 10/24/22 12:00 Resp 18 10/24/22 12:00 BP 169/76 10/24/22 12:00 Pulse Ox 96 10/24/22 12:00 O2 Del Method Room Air 10/24/22 12:00 10/23/22 10/24/22 10/24/22 22:59 06:59 14:59 Intake Total 343.582 / 343.582 125.233 / 312.760 0658.867 / 1939.867 Output Total 650 / 650 300 / 300 Balance -306.418 / -306.418 125.233 / -522.928 5332.867 / 1639.867 Weight last 48 hrs Weight 184 lb 6.4 oz Weight 189 lb Physical Exam Narrative: GENERAL: The patient is alert and oriented times three. Not in any acute distress. HEENT: No significant pallor, icterus or lymphadenopathy.Oral cavity: There are no mucous membrane lesions. NECK: Trachea appears to be central. No masses noted. No JVD or thyromegaly appreciated. RESPIRATORY: Chest is symmetrical. No intercostals muscle retraction or any accessory muscle activation. There is no chest wall tenderness. Breath sounds are heard bilaterally. No rales or rhonchi heard. No evidence of any consolidation. BREASTS: Deferred. HEART: The heart sounds are normal. No S3 or S4. Short systolic murmur at the base of the heart. No diastolic murmurs. No pericardial rub ABDOMEN: No vessel pulsations or distention. No tenderness. No organomegaly appreciated. Bowel sounds are normally heard. : Deferred. RECTAL: Deferred. LYMPHATIC: No lymphadenopathy noted in the neck. EXTREMITIES: No edema or cyanosis. No clubbing. MUSCULOSKELETAL: No acute joint deformities or swelling SKIN: There are no significant rashes or ecchymosis NEUROPSYCHIATRIC: The patient is alert and oriented x3. Appears to be in a good mood. No tremors or rigidity noted. Data 10/24/22 03:27 10/24/22 03:27 A&P Assessment and plan (1) Unstable angina pectoris due to coronary arteriosclerosis: Patient's symptoms are consistent with with unstable angina. Currently he is pain-free. EKG changes are nonspecific at this time. Patient continues to remain stable. No new arrhythmias. (2) Acute non-ST elevation myocardial infarction (NSTEMI): The LV ejection fraction was 42%, based on the echocardiogram. It is possible that the patient may have multivessel coronary artery disease. (3) CKD (chronic kidney disease) stage 4, GFR 15-29 ml/min: Kidney function seems to be remaining stable. (4) GERD (gastroesophageal reflux disease): May continue on the current management. (5) Monoclonal gammopathy: Continue on the current management (6) Ventricular arrhythmia: Patient seems to have less PVCs Plan The echocardiogram findings and its implications were discussed with the patient. Possibility of having underlying three-vessel coronary artery disease was discussed. Patient is not interested in any invasive procedures at this point. He just wants to be treated medically. Seems understand implications. May continue on the current medications. Advised for more ambulation on the telemetry. Attestations Medical Necessity Statement*: Possible discharge home tomorrow Coding Level of Care Code 65639 Diagnoses Unstable angina pectoris due to coronary arteriosclerosis I25.110 Acute non-ST elevation myocardial infarction (NSTEMI) I21.4 CKD (chronic kidney disease) stage 4, GFR 15-29 ml/min N18.4 GERD (gastroesophageal reflux disease) K21.9 Monoclonal gammopathy D47.2 Ventricular arrhythmia I49.9
--- NOTE | 2022-10-24 14:13 | PC.NURSE ---
Walked patient length of C[facility] hallway. No shortness of breath or chest pain. Vitals were stable throughout.
--- NOTE | 2022-10-24 14:57 | P.DS_ITS ---
Discharge Providers Date of Admission: 10/23/22 14:54 Date of Discharge: October 24, 2022 Attending Provider at Admission: Sulma Daniels MD Attending Provider at Discharge: Guru Buchanan DO Consults: Cardiology Primary Care Provider: Phill Howard MD Diagnoses at Discharge Discharge Diagnosis (1) Unstable angina pectoris due to coronary arteriosclerosis: Status: Acute (2) Acute non-ST elevation myocardial infarction (NSTEMI): Status: Acute (3) CKD (chronic kidney disease) stage 4, GFR 15-29 ml/min: Status: Chronic (4) GERD (gastroesophageal reflux disease): Status: Chronic (5) Monoclonal gammopathy: Status: Chronic Permanent problem details: elevated kappa/lambda ratio, evaluated by Dr Meyer in 08/2021, but made informed decision not to pursue further evaluation or consider potential treatment (6) Ventricular arrhythmia: Status: Acute Reason for Visit Reason for Visit: chest pain/pressure Brief History: Patient had chest pain or chest pressure with some nausea after eating pineapple pizza and a Coke. The following day he had this chest pressure while mowing the lawn on a riding mower. He did take his 's trailer and it relieved the symptoms. He was admitted for concern of unstable angina. Hospital Course Hospital Course The patient was admitted for chest pain/chest tightness. His troponin is elevated however he has CKD. His BNP was also elevated again confounding factor is his CKD stage IV. The patient has no prior history of coronary artery disease patient certainly shared a typical symptomology for such. While investigation was considered patient has a single kidney and suffers from CKD stage IV it was determined not to put that one kidney at risk for a test. Patient had no further chest pain while hospitalized. He was able to walk down the hallway and back which is probably 500 feet without any chest pain. With daughter present more history is obtained regarding the severity of his reflux. He does not take his PPI on an empty stomach. While the patient has a good story for coronary artery disease he also has quite a history of GERD and does not take his medication appropriately and continues to eat foods that would contribute. I recommend that he take his proton pump inhibitor twice a day on an empty stomach and this was explained in detail. He is instructed to do this for 2 weeks and then back down to once a day again on an empty stomach. Meanwhile he has been started on a beta-sebas to help with demand ischemia and magnesium supplementation. Physical Exam Narrative: Elderly male in good condition well-nourished well-hydrated. No acute distress Neurologic alert and oriented x3 nonfocal Heart: Regular normal S1-S2 without loud murmur Lungs: Clear to auscultation anteriorly Abdomen: Soft nontender nondistended normal bowel sounds Extremities: No clubbing cyanosis or edema Discharge Data Studies Completed and Pending Completed Studies During Hospitalization Category Date Time Status XR chest 1V portable [id number] Stat Exams 10/23/22 13:11 Completed CV. echo complete* [id number] Urgent Ultrasound 10/23/22 15:05 Completed US venous duplex lower extremity LT [CV venous duplex Ultrasound 10/23/22 16:51 [place] [id number]] Routine Pending at discharge Category Date Time Status PTT [Partial Thromboplastin Time] Timed Lab 10/24/22 18:20 Ordered Platelet Count Q2D Lab 10/25/22 04:00 Ordered Platelet Count Q2D Lab 10/27/22 04:00 Ordered Radiology Impressions Chest X-Ray 10/23/22 13:11 IMPRESSION: No acute findings. Laboratory Results WBC 6.7 10^3/uL (4.0-10.0) 10/24/22 03:27 RBC 4.18 10^6/uL (4.1-5.3) 10/24/22 03:27 Hgb 12.9 g/dL (11.7-16.6) 10/24/22 03:27 Hct 41.0 % (42.0-52.0) L 10/24/22 03:27 MCV 98.1 fl (80-94) H 10/24/22 03:27 MCH 30.9 pg (28.0-34.0) 10/24/22 03:27 MCHC 31.5 g/dL (30.0-36.0) 10/24/22 03:27 RDW 13.8 % (12.1-15.1) 10/24/22 03:27 Plt Count 116 10^3/cmm (130-400) L 10/24/22 03:27 MPV 12.3 fL (7.4-10.4) H 10/24/22 03:27 Neut % (Auto) 62.3 % 10/24/22 03:27 Lymph % (Auto) 23.1 % 10/24/22 03:27 [place] % (Auto) 9.3 % 10/24/22 03:27 Eos % (Auto) 4.3 % 10/24/22 03:27 Baso % (Auto) 0.7 % 10/24/22 03:27 Neut # (Auto) 4.16 10^3/uL (1.8-7.7) 10/24/22 03:27 Lymph # (Auto) 1.5 10^3/uL (0.8-4.8) 10/24/22 03:27 [place] # (Auto) 0.6 10^3/uL (0.2-0.9) 10/24/22 03:27 Eos # (Auto) 0.3 10^3/uL (0.0-0.8) 10/24/22 03:27 Baso # (Auto) 0.1 10^3/uL (0.0-0.1) 10/24/22 03:27 Nucleated RBC % (auto) 0 % 10/24/22 03:27 Nucleated RBCs # 0.0 /100WBC 10/24/22 03:27 PT 13.80 SECONDS (12.1-14.9) 10/23/22 12:18 INR 1.03 (0.8-1.2) 10/23/22 12:18 APTT 51.3 SECONDS (23.9-36.7) H 10/24/22 11:00 Sodium 142 mmol/L (136-145) 10/24/22 03:27 Potassium 5.1 mmol/L (3.5-5.1) 10/24/22 03:27 Chloride 114 mmol/L (98-107) H 10/24/22 03:27 Carbon Dioxide 17 mmol/L (22-29) L 10/24/22 03:27 Anion Gap 16.1 (5-19) 10/24/22 03:27 BUN 32 mg/dL (8-23) H 10/24/22 03:27 Creatinine 2.8 mg/dL (0.7-1.2) H 10/24/22 03:27 GFR Calculation Not Reportable 10/24/22 03:27 Glucose 102 mg/dL (65-115) 10/24/22 03:27 Estimat Average Glucose 134 10/24/22 03:27 Hemoglobin A1c 6.3 % (4.0-6.0) H 10/24/22 03:27 Calculated Osmolality 301 mOsm/kg (285-295) H 10/24/22 03:27 Calcium 8.6 mg/dL (8.5-10.5) 10/24/22 03:27 Phosphorus 3.4 mg/dL (2.5-4.5) 10/24/22 03:27 Magnesium 1.8 mg/dL (1.7-2.3) 10/24/22 03:27 Total Bilirubin 0.4 mg/dL (0.15-1.2) 10/23/22 12:18 AST 20 U/L (0-40) 10/23/22 12:18 ALT 9 U/L (0-41) 10/23/22 12:18 Alkaline Phosphatase 69 U/L (40-130) 10/23/22 12:18 Creatine Kinase 124 U/L (39-308) 10/23/22 12:18 CK-MB (CK-2) 11.7 ng/mL (0-10.4) H 10/23/22 12:18 CK-MB (CK-2) Rel Index 9.4 % (0.0-5.3) H 10/23/22 12:18 Troponin T Baseline 717 ng/L (0-15) H* 10/23/22 12:18 Troponin T 120 Minute 649.4 ng/L (0-15) H 10/23/22 15:10 Delta Troponin T -67.6 ABS# (0-10) L 10/23/22 15:10 Troponin T Hi Sens 6Hr 648.5 ng/L (0-15) H 10/23/22 19:50 Troponin T Hi Sens 6Hr Delta -68.5 ng/L (0-12) L 10/23/22 19:50 NT-Pro-B Natriuret Pep 3582 pg/mL (0-450) H 10/23/22 12:18 Total Protein 7.4 g/dL (6.6-8.7) 10/23/22 12:18 Albumin 4.4 g/dL (3.5-5.2) 10/23/22 12:18 Globulin 3.0 g/dL (1.3-4.6) 10/23/22 12:18 Triglycerides 108 mg/dL (0-150) 10/24/22 03:27 Cholesterol 160 mg/dL (0-200) 10/24/22 03:27 LDL Cholesterol, Calc 109 mg/dL (50-129) 10/24/22 03:27 HDL Cholesterol 29 mg/dL (60-100) L 10/24/22 03:27 LDL/HDL Ratio 3.76 RATIO (0.00-3.22) H 10/24/22 03:27 Cholesterol/HDL Ratio 5.52 mg/dL (1.0-5.00) H 10/24/22 03:27 Procedures Performed None Vitals Last Vital Signs Temp 97.8 F 10/24/22 08:00 Pulse 65 10/24/22 14:00 Resp 18 10/24/22 12:00 BP 169/76 10/24/22 12:00 Pulse Ox 96 10/24/22 12:00 O2 Del Method Room Air 10/24/22 12:00 Discharge Plan Discharge Patient Disposition: Home Condition: Stable Prescriptions: New Magtab 84 mg Tablet Extended Release 84 mg PO BID Qty: 60 0RF metoprolol tartrate 25 mg Tablet 25 mg PO BID Qty: 60 0RF Continued (DME) Night splint to left See Rx Instructions .Route .MEDSUPPLY Qty: 1 0RF Rx Instructions: As directed latanoprost 0.005 % drops 1 drp ophthalmic (eye) BEDTIME amlodipine 10 mg tablet 5 mg PO QAM Vitamin D3 25 mcg (1,000 unit) Tablet 25 mcg PO QAM Changed omeprazole 20 mg capsule,delayed release(DR/EC) 20 mg PO BIDAC Qty: 60 0RF Discharge Orders: Discharge Order (Routine); Ordered 10/24/22 Ordered By: Guru Buchanan Referrals: Phill Howard MD [Primary Care Provider] - Blanca Gutierrez FNP [Nurse Practitioner] - Discharge Diet: Advance as tolerated and As Directed Discharge Activity: Increase activity as tolerated Activity Restrictions/Additional Instructions: In consideration that symptoms could be from gastroesophageal reflux disease (heartburn) please take omeprazole twice a day on an empty stomach. Do not eat until 1 hour after taking the medication and then you can take just before bed if you have not eaten for 2 hours. Do this for at least 2 weeks and then resume once a day on an empty stomach. Have not started on a new medication for blood pressure that can also help if there is cardiac disease. This is metoprolol please take as directed. Also added is a magnesium supplement please take this daily. Discharge Attestations Time Spent in Discharge Care*: greater than 30 min Quality Metrics Clinical Quality Measures [ No reported AMI, CVA or VTE this stay] Coding Level of Care Code Acute Code for Chg Fwd Diagnoses Unstable angina pectoris due to coronary arteriosclerosis I25.110 Acute non-ST elevation myocardial infarction (NSTEMI) I21.4 CKD (chronic kidney disease) stage 4, GFR 15-29 ml/min N18.4 GERD (gastroesophageal reflux disease) K21.9 Monoclonal gammopathy D47.2 Ventricular arrhythmia I49.9
== END 2022-10-24 17:08 | disposition home or self-care (01) | DRG 281 ==
LOC: ER 13:59 → CSU 15:11
PROVIDERS: Admitting Provider Hospitalist; Emergency Provider Family Medicine; PCP Family Medicine; Visit Provider Internal Medicine
DX: I25.110 Atherosclerotic heart disease of native coronary artery with unstable angina pectoris (principal); I21.4 Non-ST elevation (NSTEMI) myocardial infarction; N18.4 Chronic kidney disease, stage 4 (severe); I12.9 Hypertensive chronic kidney disease with stage 1 through stage 4 chronic kidney disease, or unspecified chronic kidney disease; Z90.5 Acquired absence of kidney; K21.9 Gastro-esophageal reflux disease without esophagitis; F17.220 Nicotine dependence, chewing tobacco, uncomplicated; H40.9 Unspecified glaucoma; D47.2 Monoclonal gammopathy; Z85.528 Personal history of other malignant neoplasm of kidney; Z91.148 Patient's other noncompliance with medication regimen for other reason; Z66 Do not resuscitate; Z86.718 Personal history of other venous thrombosis and embolism; I49.8 Other specified cardiac arrhythmias; R73.9 Hyperglycemia, unspecified; E55.9 Vitamin D deficiency, unspecified; E21.3 Hyperparathyroidism, unspecified
CPT/HCPCS: 36415; 71045; 80048; 80053; 80061; 82550; 82553; 83036; 83735; 83880; 84100; 84484; 85025; 85610; 85730; 93005; 93306; 93971; 96374; 99285; J1644; J7030

== ENCOUNTER → 2022-10-30 08:42 | Outpatient (BNVA) | payer MEDICARE, OTHER, SELFPAY | PROVIDERS: PCP Family Medicine; Visit Provider Nurse Practitioner Family | DX: I20.8 Other forms of angina pectoris (principal); F17.220 Nicotine dependence, chewing tobacco, uncomplicated | CPT/HCPCS: 99213 ==

== ENCOUNTER → 2023-02-08 11:11 | Outpatient (BNVA) | payer MEDICARE, OTHER, SELFPAY | PROVIDERS: PCP Family Medicine; Visit Provider Internal Medicine Cardiovascular Disease | DX: I25.119 Atherosclerotic heart disease of native coronary artery with unspecified angina pectoris (principal); I15.1 Hypertension secondary to other renal disorders; N18.4 Chronic kidney disease, stage 4 (severe); Z90.5 Acquired absence of kidney; I49.8 Other specified cardiac arrhythmias; F17.220 Nicotine dependence, chewing tobacco, uncomplicated | CPT/HCPCS: 99214 ==

== ENCOUNTER → 2023-08-27 11:03 | Outpatient (BNVA) | payer MEDICARE, OTHER, SELFPAY | PROVIDERS: PCP Family Medicine; Visit Provider Internal Medicine Cardiovascular Disease | DX: I25.119 Atherosclerotic heart disease of native coronary artery with unspecified angina pectoris (principal); I15.1 Hypertension secondary to other renal disorders; N25.81 Secondary hyperparathyroidism of renal origin; K21.00 Gastro-esophageal reflux disease with esophagitis, without bleeding; F17.220 Nicotine dependence, chewing tobacco, uncomplicated | CPT/HCPCS: 99214 ==

== ENCOUNTER 2023-09-04 07:13 | Outpatient (CLI) | payer MEDICARE, OTHER, SELFPAY ==
--- NOTE | 2023-09-04 07:15 | USCV_ITS ---
Elvin Sanchez Age: 87 Gender: M : 1935 Exam Date: 09/04/2023 07:28 Ordering Phys: Renetta Oconnor MD ([email or web address]) Technologist: JEANIE [place] [facility] [place]: CARDIOMYOPATHY/COSME BP: 130 / 70 HR: 48 Rhythm: Sinus Technical Quality: Adequate MEASUREMENTS (Male / Female) Normal Values 2D ECHO LV Diastolic Diameter PLAX 4.2 cm 4.2 - 5.9 / 3.9 - 5.3 cm IVS Diastolic Thickness 1.7 cm 0.6 - 1.0 / 0.6 - 0.9 cm IVS Systolic Thickness 1.8 cm LVPW Diastolic Thickness 1.9 cm 0.6 - 1.0 / 0.6 - 0.9 cm LVPW Systolic Thickness 1.7 cm LVOT Diameter 2.0 cm LV Ejection Fraction 2D Teich 50.5 % LV Ejection Fraction MOD 2C 47.9 % LV Ejection Fraction 2C AL 48.7 % LA Diameter 3.8 cm RA Systolic Volume 4C AL 22.0 ml RA Systolic Volume 4C MOD 21.7 ml LA Sys Volume AL 36.4 cm cubed LA Sys Volume Index AL 17.1 cm cubed/m squared Aorta at Sinotubular Diameter 2.2 cm M-MODE LA Ao Ratio MM 1.2 AV Cusp Separation MM 1.8 cm DOPPLER AV Peak Velocity 296.3 cm/s LVOT Peak Velocity 68.0 cm/s AV Area Cont Eq vti 1.9 cm squared AV Area Cont Eq pk 0.7 cm squared MV Peak Velocity 109.0 cm/s MV Area PHT 1.5 cm squared Mitral E to A Ratio 0.7 TR Peak Velocity 138.0 cm/s TR Peak Gradient 7.6 mmHg TR Mean Velocity 114.0 cm/s TR Mean Gradient 5.6 mmHg TR Velocity Time Integral 43.3 cm TV Peak E Velocity 40.0 cm/s Right Atrial Pressure 3.0 mmHg Pulmonary Artery Systolic Pressu 10.6 mmHg PV Peak Velocity 114.0 cm/s RV Ejection Time 0.3 s FINDINGS Left Ventricle Mild diffuse hypokinesia of the left ventricular ejection fraction of 49%.Grade I/IV diastolic dysfunction (abnormal relaxation filling pattern), normal to mildly elevated filling pressures. Right Ventricle Normal right ventricular size and systolic function. Right Atrium Normal right atrial size. Left Atrium Mildly increased left atrial size. Mitral Valve Mild mitral valve regurgitation. Mild prolapse of the posterior mitral leaflet Aortic Valve Trace to mild aortic valve regurgitation. Tricuspid Valve Trace tricuspid valve regurgitation. Pulmonic Valve No gross abnormalities noted Pericardium No pericardial effusion. Aorta Normal aortic annulus size. IVC Inferior vena cava not visualized. CONCLUSIONS Mild diffuse hypokinesia of the left ventricule with an ejection fraction of 49%. Grade I/IV diastolic dysfunction (abnormal relaxation filling pattern), normal to mildly elevated filling pressures. Mildly increased left atrial size. Mild mitral valve regurgitation. Mild prolapse of the posterior mitral leaflet Trace to mild aortic valve regurgitation. Trace tricuspid valve regurgitation. There is no pericardial effusion. There are no intracardiac masses. Compared to the previous study from 10/23/2022, there is slight improvement in the LV ejection fraction from 43% to 49% Dr Renetta Oconnor MD [facility] (Electronically Signed) Final Date: 09 September 2023 22:12 S
== END 2023-09-04 07:14 | disposition home or self-care (01) ==
LOC: RAD 07:13
PROVIDERS: PCP Family Medicine; Visit Provider Internal Medicine Cardiovascular Disease
DX: R06.09 Other forms of dyspnea (principal); I50.30 Unspecified diastolic (congestive) heart failure
CPT/HCPCS: 93306

== ENCOUNTER → 2023-10-29 10:08 | Outpatient (BNVA) | payer MEDICARE, OTHER, SELFPAY | PROVIDERS: PCP Family Medicine; Visit Provider Nurse Practitioner Family | DX: I50.20 Unspecified systolic (congestive) heart failure (principal) | CPT/HCPCS: 99213 ==

== ENCOUNTER → 2024-03-05 11:12 | Outpatient (BNVA) | payer MEDICARE, OTHER, SELFPAY | PROVIDERS: PCP Family Medicine; Visit Provider Internal Medicine Cardiovascular Disease | DX: R06.02 Shortness of breath (principal) | CPT/HCPCS: 36415; 80048; 83880; 99214 ==

== ENCOUNTER 2024-10-15 07:16 | Inpatient (IN) | payer MEDICARE, OTHER, SELFPAY ==
[2024-10-15] VITALS (73 sets, daily range): BP systolic 127–186; BP diastolic 49–92; PULSE 57–97; RESP 11–106; TEMP 36.7; O2SAT 92–96; BMI 26.4; BMI 25.7
--- NOTE | 2024-10-15 07:20 | ECG_ITS ---
[facility] 2024[facility]10[facility]15 Pat Name: Elvin Sanchez Department: Room: Gender: Male [place] [facility] [place]: : 1935 Requested By: Lokesh Brice Order Number: [id number] Chuck MD: Hong Lockhart M.D. Measurements Intervals [place] Rate: 91 P: 57 OK: 161 QRS: 10 QRSD: 88 T: 32 QT: 336 QTc: 414 Interpretive Statements SINUS RHYTHM Compared to ECG 10/23/2022 16:31:55 Ventricular premature complex(es) no longer present Electronically Signed On 10-16-2024 09:03:56 CDT by Hong Lockhart M.D. [email or web address]
--- NOTE | 2024-10-15 07:20 | XRR_ITS ---
PROCEDURE INFORMATION: Exam: XR Chest Exam date and time: 10/15/2024 7:29 AM Age: 88 years old Clinical indication: Pain; Angina pectoris; Additional info: Chest pain TECHNIQUE: Imaging protocol: Radiologic exam of the chest. Views: 1 view. COMPARISON: CR XR chest 1V portable [id number] 10/23/2022 1:54 PM FINDINGS: Lungs: No consolidation. Pleural spaces: No sizable pleural effusion or pneumothorax. Heart/Mediastinum: No cardiomegaly. Bones/joints: Unremarkable. XR/XR chest 1V portable [id number] IMPRESSION: No acute intrathoracic findings.
--- OUTSIDE RECORDS SUMMARY | 2024-10-15 07:26 | XMS_ITS | Data Portability ---
Author Organization [facility] Wilbur Mcnamara [facility] Address [address] [facility] [address] [place] [address] Care Team Providers Care Tunnel Drier Operator Name Role Phone ANGELA HOWARD Primary Care Provider Assessment Encounter Date Assessment Date Assessment LastModified by Organization Details LastModified Time 05/27/2024 05/27/2024 Patient here today because he has had some discoloration on his left heel. He has also had some left lower extremity swelling. Discussed ultrasound preliminary results with Dr. Howard, will put on a low dose spironolactone a couple of days a week to help with swelling. CCA form completed at today's visit. [email or web address] Not available 05/28/2024 11:15:06 Plan of Treatment Reminders Order Date Submit Date Provider Last Modified By Organization Details Last Modified Time Details Appointments None recorded. Lab None recorded. Referral None recorded. Procedures None recorded. Surgeries None recorded. Imaging US, duplex, venous, lower extremity, unilateral - 91545 LT LEG 2024 025 [email or web address] [facility] ([facility]), [address] [place] [address], [phone], 11:15:59 XR, ankle, 3 or more view 2024 025 [email or web address] [facility] ([facility]), [address] [place] [address], [phone], 11:17:24 Medication Orders spironolact one 25 mg tablet 2024 025 [facility], [address] [place] [address], [address], 12:44:23 meclizine 25 mg tablet 2023 025 [facility], [address] [place] [address], [address], 10:51:15 Patient TargetsNo targets recorded. Patient Instructions Encounter Date Encounter Id Patient Instructions Last Modified By Organization Details Last Modified Time 05/27/2024 [id number] Call or return for questions or concerns. [email or web address] Not available 05/28/2024 11:14:36 Reason for Referral None Reported. Results Created Date Observation Date Name Description Value Unit Range Abnormal Flag Note LastModifiedBy Organization Detail LastModifiedTime 05/28/19 XR, ankle , 3 or more view No observ ation record ed. [email or web address] [facility] ([facility]) [address] [place], [address], 05/27/2024 15:45:55 05/29/1905/27/2024 US, duple x, venou s, lower extre mity, unila teral No observ ation record ed. [email or web address] [facility] [address] [place], [address], 05/28/2024 15:42:04 05/29/19 25 05/27/2024 XR, ankle , 3 or more view No observ ation record ed. [email or web address] [facility] ([facility]) [address] [place], [address], 05/28/2024 11:42:02 Result Notes None recorded. Problems Name Problem SNOMED Code Status Onset Date Resolution Date Notes Provider Name and Address Organization Details Recorded Time Chronic kidney disease stage 2 380741168 Completed 202205/28/2024 STAGE 2 CHRONIC KIDNEY DISEASE; Recorded 05/17/19 2:51PM by Moises Kay, Office Visit; Promoted ; acuity set as *; PEDRO GAY, [address], [address], [facility] 11:11:27 Arthriti s 3860038 Completed 202205/28/2024 arthriti s; 05/17/19 2:51PM by Moises Kay, Office Visit; Promoted ; acuity set as *; PEDRO GAY, [address], [address], [facility] 5 11:11:27 Acute ulcer of skin 07116955694 9108 Completed 202205/28/2024 hx of ulcers; 05/17/19 2:51PM by Moises Kay, Office Visit; Promoted ; acuity set as *; PEDRO GAY, [address], [address], [facility] 11:11:27 Chronic kidney disease stage 4 957394682 Active 2022 PEDRO GAY, [address], [address], [facility] 5 11:11:02 Essyumiko deluca 08609318 Active 2022 PEDRO GAY, [address], [address], [facility] 5 11:11:02 Plantar fasciiti s of left foot 65309152707 799411 Completed 202205/28/2024 PEDRO GAY, [address], [address], [facility] 5 11:11:27 Glaucoma 55852787 Active 2022 PEDRO GAY, [address], [address] [place] [address] 5, [facility] 11:11:32 Gastroes ophageal reflux disease 206984991 Active 2022 PEDRO GAY, [address], [address] [place] [address] 5, [facility] 11:11:10 Coronary arterios clerosis 37044722 Active 2022 PEDRO GAY, [address], [address] [place] [address] 5, [facility] 11:11:10 Mirna ferreira 891541221 Completed 202205/28/2024 PEDRO GAY, [address], [address] [place] [address] 5, [facility] 11:11:27 Labyrint hitis 94018496 Completed 202305/28/2024 PEDRO GAY, [address], [address] [place] [address] 5, [facility] 11:11:27 Labyrint hitis 88529252 Completed 202305/28/2024 PEDRO GAY, [address], [address] [place] [address] 5, [facility] 11:11:27 Low back strain 070889001 Active 2024 Angela Howard MD [address] [place] [address] 5, [facility] 10:56:16 Problem Notes None recorded. Procedures Surgical History Date Name Laterality Status Provider Name and Address Organization Details Recorded Time 05/28/19 25 plain X-ray of left ankle completed [facility], Sean 05/28/2024 10:32:55 05/28/19 Doppler ultrasonography of vein completed [facility], Sean 05/28/2024 10:34:53 Imaging Results None recorded. Procedure Notes None recorded. Medical Equipment None Reported. Allergies Allergen ID Allergen Name Allergen Category Reaction Reaction Severity Criticality Documentation Date Start Date Code Code System Note Provider Name and Address Organization Details Recorded Time 17083 Substance with sulfonami de structure and antibacte rial mechanism of action (substanc e) medicatio n rash Not available Not available 10/21/2022 27095 8003 SNOMED React ion: Rash; Comme nt: Recor ded 05/17 2:51P M by Lee nelson, Offic e Visit ; Kassandra horvath; Celeste amaro ce: *; ; Not Available [facility] 3 02:28:14 Medications Name Sig Start Date Stop Date Status Note LastModified by Organization Details LastModified Time latanopro st 0.005 % eye drops instill one drop into each eye ONCE AT BEDTIME active Not Available Not Available No t Available doxycycli ne hyclate 100 mg capsule Take 1 capsule twice a day by oral route for 10 days. 09/15 completed Not Available Not Available Not Available isosorbid e mononitra te ER 30 mg tablet,ex tended release 24 hr TAKE 1 TABLET BY MOUTH DAILY active Not Available Not Available No t Available clopidogr el 75 mg tablet TAKE 1 TABLET BY MOUTH EVERY DAY active Not Available Not Available No t Available spironola ctone 25 mg tablet TAKE 1 TABLET BY MOUTH THREE TIMES A WEEK FOR SWELLING 2024 active Not Available Not Available Not Avai lable magnesium oxide 400 mg (241.3 mg magnesium ) tablet TAKE ONE TABLET BY MOUTH EVERY DAY NEEDED active Not Available Not Available No t Available meclizine 25 mg tablet TAKE 1 TABLET BY MOUTH THREE TIMES DAILY NEEDED 07/18 completed Not Available Not Available Not Available amlodipin e 10 mg tablet take 1/2 tablet BY MOUTH EVERY MORNING active Not Available Not Available No t Available polymyxin B sulfate 10,000 unit-trim ethoprim 1 mg/mL eye drops INSTILL 1 DROP INTO AFFECTED EYE(S) BY OPHTHALM IC ROUTE TWICE DAILY 09/15 completed Not Available Not Available Not Available brimonidi ne 0.2 % eye drops INSTILL 1 DROP INTO RIGHT EYE TWICE DAILY active Not Available Not Available No t Available nitroglyc anni 0.4 mg sublingua l tablet DISSOLVE 1 TABLET UNDER THE TONGUE EVERY 5 MINUTES NEEDED FOR CHEST PAIN. DO NOT EXCEED A TOTAL OF 3 DOSES IN 15 MINUTES. active Not Available Not Available No t Available omeprazol e 20 mg capsule,d elayed release take 1 capsule BY MOUTH TWICE DAILY 2024 active Not Available Not Available Not Avai lable cholecalc iferol (vitamin D3) 125 mcg (5,000 unit) capsule take 1 capsule BY MOUTH EVERY DAY 2024 active Not Available Not Available Not Avai lable metoprolo l tartrate 25 mg tablet TAKE 1 TABLET BY MOUTH TWICE DAILY active Not Available Not Available No t Available magnesium L-lactate ER 84 mg tablet,ex tended release TAKE 1 TABLET BY MOUTH TWICE DAILY active Not Available Not Available No t Available omeprazol e two times daily 10/27 completed Recorded 03/16/20 10:16AM by Angela Howard MD, Refill Request; Refill Quantity : 180; Tablet; Not Available Not Available Not Available Alphagan P 0.1 % eye drops apply one drop into THE right eye TWICE DAILY active Not Available Not Available No t Available amlodipin e besylate (bulk) daily 10/[address] Coles; 0; Recorded 05/17/19 2:51PM by Moises Kay, Office Visit; Not Available Not Available Not Available Vitamin D3 125 mcg (5,000 unit) tablet Take 1 tablet every day by oral route for 90 days. 2022 active Not Available Not Available Not Avai lable Entresto 24 mg-26 mg tablet TAKE 1 TABLET BY MOUTH TWICE DAILY active Not Available Not Available No t Available Veltassa 8.4 gram oral powder packet TAKE ONE PACKET IN THE MORNING active Not Available Not Available No t Available Lokelma 10 gram oral powder packet Take 1 packet every other day by oral route. active Not Available Not Available No t Available Vitals Date Recorded Body height Body mass index (BMI) Body weight Oxygen saturation Oxygen saturation in Arterial blood by Pulse oximetry Heart rate Respiratory rate Body temperature Systolic And Diastolic Provider Name and Address Organization Details Last Updated DateTime 5 177.8 cm 28.3 kg/m2 98703.7 g 95 % 95 % 78 /min 16 /min 98.2 [degF] 144/68 mm[Hg] Cori Oviedo [facility] 5 15:37:01 Date Recorded Body height Body mass index (BMI) Body weight Heart rate Systolic And Diastolic Provider Name and Address Organization Details Last Updated DateTime 07/18/2024 177.8 cm 27.8 kg/m2 43266.92 g 72 /min 150/80 mm[Hg] [facility] 5 10:27:26 Date Recorded Body height Body mass index (BMI) Body weight Heart rate Systolic And Diastolic Provider Name and Address Organization Details Last Updated DateTime 07/23/2023 177.8 cm 28.1 kg/m2 56790.1 g 64 /min 143/73 mm[Hg] VIRGIL [facility] 4 10:24:04 Date Recorded Body height Body mass index (BMI) Body weight Oxygen saturation Oxygen saturation in Arterial blood by Pulse oximetry Heart rate Systolic And Diastolic Provider Name and Address Organization Details Last Updated DateTime 4 177.8 cm 27.5 kg/m2 28114.7 4 g 93 % 93 % 60 /min 142/70 mm[Hg] MOISES KAY [facility] 4 10:55:56 Social History None recorded. Functional Status Question Answer Note LastModified by Organizat ion Details LastModified Time Do you use any illicit or recreational drugs? No [email or web address] Information not available 09/15/2022 Do you or have you ever used any other forms of tobacco or nicotine? Yes [email or web address] Information not available 09/15/2022 What is your level of alcohol consumption? None [email or web address] Information not available 09/15/2022 Do you or have you ever used smokeless tobacco? Currently chews tobacco [email or web address] Information not available 09/15/2022 Mental Status None recorded. Family History Relationship Description Onset Age of this Age Resolved Age Notes LastModified by Organization Details LastModified Time Mother Malignant tumor of breast [email or web address] Not available 07/18 10:31:06 Notes:None reported, Non-Con tributory Family History Medical History No medical history recorded. Immunizations Vaccine Type Date Status Note Provider Nam e and Address Organization Details Recorded Time Influenza, split virus, trivalent, preservative 6 completed Not Available [facility] 01/22/2023 10:19:18 Influenza, split virus, trivalent, preservative 8 completed Not Available [facility] 01/22/2023 10:19:18 Influenza, split virus, trivalent, preservative 1 completed Not Available [facility] 01/22/2023 10:19:18 Influenza, split virus, trivalent, preservative 2 completed Not Available [facility] 01/22/2023 10:19:18 Influenza, split virus, trivalent, preservative 7 completed Not Available [facility] 01/22/2023 10:19:18 pneumococcal polysaccharide PPV23 2 completed Not Available [facility] 01/22/2023 10:19:18 Influenza, split virus, trivalent, preservative 4 completed Not Available [facility] 01/22/2023 10:19:18 Influenza, high-dose, quadrivalent, PF 2 completed MOISES wild [facility] 09/15/2022 10:39:16 COVID-19, mRNA, LNP-S, PF, 100 mcg/0.5mL dose or 50 mcg/0.25mL dose 1 completed MOISES wild [facility] 09/15/2022 10:39:16 Influenza, split virus, quadrivalent, PF 1 completed [facility] 09/15/2022 10:39:16 Past Encounters Encounter ID Performer Location Encounter Start Date Encounter Closed Date Diagnosis/Indication Diagnosis SNOMED-CT Code Diagnosis ICD10 Code Diagnosis Note [id number] KENDELL HYDE [facility] ([facility] [address] [place], [place] [address] 08/04/2022 15:24:37 08/17/2022 15:12:12 Upper respiratory infection 77282279 J06.9 Start doxycyclin e BID x 10 days today. Encouraged patient to continue increasing fluids. If worsening SOB occurs, go to ED. Recommend following up with PCP if not improving in 3-5 days. Acute conjunctivitis 537 36305 H10.33 Start drops today. Encouraged patient to use warm compresses for relief. [id number] Angela Howard MD [facility] ([facility]) [address] [place], [place] [address] 09/15/2022 10:33:04 09/15/2022 13:40:22 Chronic kidney disease stage 4 186936047 N18.4 Essential hypertension 87513276 I10 Plantar fa sciitis of left foot 3395668973 2664620 M72.[address] Amaya. Glaucoma 14966816 H40.9 Gastroesop hageal reflux disease 705814496 K21.9 controlled with Omeprazole . [id number] Angela Howard MD [facility] ([facility]) [address] [place] [address] 10/27/2022 11:47:36 10/27/2022 12:51:26 Coronary arteriosclerosis 43244868 I25.10 Essential hypertension 25243465 I10 Gastroesop hageal reflux disease 639575056 K21.9 controlled with Omeprazole . 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 Amaya. Gastroesop hageal reflux disease 011533388 K21.9 controlled with Omeprazole . Chronic ki dney disease stage 2 435142745 N18.2 Essential hypertension 53980936 I10 Coronary arteriosclerosis 39788924 I25.10 [id number] Angela Howard MD [facility] ([facility]) [address] [place] [address] 07/23/2023 10:10:55 07/23/2023 15:51:31 Plantar fasciitis of left foot 7748974953 7007501 M72.2 continues to bother him. He has not seen Dr. Amaya in awhile but he does not want to see him for awhile. Gastroesop hageal reflux disease 815417262 K21.9 controlled with Omeprazole . Chronic ki dney disease stage 4 697410555 N18.4 followed by nephrology . Coronary arteriosclerosis 59565143 I25.10 Essential hypertension 41041909 I10 [id number] Angela Howard MD [facility] ([facility]) [address] [place] [address] 01/23/2024 10:40:56 01/23/2024 13:12:12 Arthritis 8121221 M19.90 Chronic ki dney disease stage 4 723946317 N18.4 followed by nephrology . Stable. Labs done thru them recently. Labyrinthitis 97909969 H 83.03 Essential hypertension 23459803 I10 stable [id number] ALTAGRACIA LEACH [facility] ([facility]) [address] [place] [address] 05/27/2024 15:20:07 05/28/2024 11:15:58 Swelling of ankle joint 765171843 M25.472 Pain of left calf 211260 8619 263177 M79.662 Chronic ki dney disease stage 4 393418969 N18.4 Follows with nephrology . Hyperlipidemia 13491780 E78.5 Follows with cardiology . Essential hypertension 01081581 I10 Continue amlodipine . 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 [id number] PEDRO GAY MOTOR RACER [facility] [address] [place] [address] 05/27/2024 16:12:23 05/28/2024 11:17:49 [id number] Angela Howard MD [facility] ([facility]) [address] [place] [address] 07/18/2024 10:08:48 07/18/2024 11:25:31 Gastroesophageal reflux disease 401172496 K21.9 controlled with Omeprazole . Chronic ki dney disease stage 4 916157402 N18.4 followed by nephrology . Stable. Coronary arteriosclerosis 24035090 I25.10 Essential hypertension 66395523 I10 stable Low back strain 41736544 1 S39.012A appears mild, will use tylenol, heat and ice. Health Concerns Section Related Observation LastModified by Organization Detai ls LastModified Time None Recorded Concern Status LastModified by Organization Details LastModified Time None Recorded Advance Directives Directive None Recorded Payers Insurance Date Sequence Insurance Name Policy Number Policy Casillas Covered Member ID Casillas Member ID Guarantor Name 07/15/2024 [place] - [facility] (MEDICARE) Elvin C [place] [id number] 2 Elvin C Daniel 08/28/2024 2 [employer] (MEDICARE SUPPLEMENT) Elvin C [place] [id number] Elvin C Daniel 06/15/2024 2 UNSPECIFIED REMIT PAYOR Elvin C Daniel 07/15/2024 1 [place] [employer] Elvin C [place] [id number] 2 Elvin C [place] Notes Date Note Type Note Provider Name and Address Organization Details Recorded Time 07/23/2023 text/html Hypertension IM/FMReported bypatient.Quality: here for check-up Self Care:not under emotional stress Associated Symptoms:shortness of breath;exertional dyspnea Risk Factorschest pain with activityReflux/RAPHAEL DReported bypatient.Severity :improving Angela Howard MD [address] [place] [address], [address], [facility] 07/23/2023 10:57:20 01/23/2024 text/html Hypertension IM/FMReported bypatient.Quality: here for check-up Onset/Timing:gradu al onset Alleviating Factors:medication Associated Symptoms:no shortness of breath; no palpitations; no chest pain (tightness.) Has been having dizziness for about a week, feel off balance. No falls. Angela Howard MD [address] [place] [address], [address], [facility], LNena. 01/23/2024 11:24:26 05/27/2024 text/html patient is here today for for a bruise on his left heel. Patient said that it has started hurting 6 months ago and then last week it turned black PEDRO GAY, [address], [address], [facility], LTk 05/28/2024 11:15:26 07/18/2024 text/html Hypertension IM/FMReported bypatient.Quality: here for check-up Alleviating Factors:medication Reflux/GERDReporte d bypatient.Severity :improving Alleviating Factors:medication Associated Symptoms:no frequent coughing; no globus sensation; no hoarseness; no belching/burping; no nausea; no vomiting; no hematemesis; no regurgitation; no shortness of breath; no chest pain; no heartburn; no difficulty swallowing Angela Howard MD [address] [place], [address], [facility], Sean 07/18/2024 11:02:20
--- OUTSIDE RECORDS SUMMARY | 2024-10-15 07:26 | XMS_ITS | Encounter Summary ---
Author Organization [facility] Address [address] [place] [address] Care Team Providers Care Squirt Machine Operator Name Role Phone Phill Howard MD Primary Care Provider [phone] Encounter Details Date Type Department Care Team (Late st Contact Info) Description 03/03/2005 Outpatient Historical [facility] Urology- [address] Entr[address] B, 3[address] [place] [id number] Ariel Romero MD [address] [address] Malig flaco kidney (Primary Dx); BLADDER NECK OBSTRUCTION; OTHER SPEC DISORDER URINARY TRACT; ABDOMINAL PAIN UNSPEC SITE Social History Tobacco Use Types Packs/Day Years Used Date Smoking Tobacco: Never Assessed Sex and Gender Information Value Date Recorded Sex Assigned at Not on file Legal Sex Male 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
--- OUTSIDE RECORDS SUMMARY | 2024-10-15 07:26 | XMS_ITS | Encounter Summary ---
Author Organization [facility] Address [address] [place] [address] Care Team Providers Care Correctional Supervisor Name Role Phone Phill Howard MD Primary Care Provider [phone] Encounter Details Date Type Department Care Team (Late st Contact Info) Description 09/04/2006 Outpatient Historical [facility] Urology- [place] [address] [address] [facility] [address]trance B, 3[address] [place] [address] Ariel Romero MD [address] [phone] Malig Jose Manuel Kidney (Primary Dx) Social History Tobacco Use Types Packs/Day Years Used Date Smoking Tobacco: Never Assessed Sex and Gender Information Value Date Recorded Sex Assigned at Not on file Legal Sex Male 5:50 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
--- OUTSIDE RECORDS SUMMARY | 2024-10-15 07:26 | XMS_ITS | Clinical Summary ---
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
--- OUTSIDE RECORDS SUMMARY | 2024-10-15 07:26 | XMS_ITS | Encounter Summary ---
Author Organization [facility] Address [address] [place] [address] Care Team Providers Care Television Writer Name Role Phone Phill Howard MD Primary Care Provider [phone] Encounter Details Date Type Department Care Team (Late st Contact Info) Description 09/04/2005 Outpatient Historical [facility] Imaging and Laboratory Services [place] 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
--- OUTSIDE RECORDS SUMMARY | 2024-10-15 07:26 | XMS_ITS | Encounter Summary ---
Author Organization [facility] Address [address] [place] [address] Care Team Providers Care Horticultural Specialty Grower Inside Name Role Phone Phill Howard MD Primary Care Provider [phone] Encounter Details Date Type Department Care Team (Latest Contact Info) Description 07/08/[address] 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
--- OUTSIDE RECORDS SUMMARY | 2024-10-15 07:26 | XMS_ITS | Encounter Summary ---
Author Organization [facility] Address [address] [place] [address] Care Team Providers Care Assistant Designer Name Role Phone Phill Howard MD Primary Care Provider [phone] Encounter Details Date Type Department Care Team (Latest Contact Info) Description 03/03/2005 Outpatient Historical [facility] Imaging Services [address] [place] [phone] Ariel Romero MD [address] [address] LUMBAGO (Primary Dx) Social History Tobacco Use Types Packs/Day Years Used Date Smoking Tobacco: Never Assessed Sex and Gender Information Value Date Recorded Sex Assigned at Not on file 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
--- OUTSIDE RECORDS SUMMARY | 2024-10-15 07:26 | XMS_ITS | Encounter Summary ---
Author Organization [facility] Address [address] [place] [address] Care Team Providers Care Pipe Roller Name Role Phone Phill Howard MD Primary Care Provider [phone] Encounter Details Date Type Department Care Team (Latest Contact Info) Description 06/23/2003 Outpatient Historical [facility] Imaging Services [address] [place] [phone] Phill Howard MD [address] [address] RENAL & URETERAL DIS NOS (Primary Dx) Social History Tobacco Use Types Packs/Day Years Used Date Smoking Tobacco: Never Assessed Sex and Gender Information Value Date Recorded Sex Assigned at Not on file 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
--- OUTSIDE RECORDS SUMMARY | 2024-10-15 07:26 | XMS_ITS | Encounter Summary ---
Author Organization [facility] Address [address] [place] [address] Care Team Providers Care General Practice Name Role Phone Phill Howard MD Primary Care Provider [phone] Encounter Details Date Type Department Care Team (Late st Contact Info) Description 07/15/2003 Inpatient Historical [facility] Ariel Romero MD [address] [phone] MALIG NEOPL KIDNEY (CMS/HCC) (Primary Dx) Social History Tobacco Use Types Packs/Day Years Used Date Smoking Tobacco: Never Assessed Sex and Gender Information Value Date Recorded Sex Assigned at Not on file 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
--- OUTSIDE RECORDS SUMMARY | 2024-10-15 07:26 | XMS_ITS | Encounter Summary ---
Author Organization [facility] Address [address] [place] [address] Care Team Providers Care Shuttlecock Assembler Name Role Phone Phill Howard MD Primary Care Provider Encounter Details Date Type Department Care Team (Late st Contact Info) Description 06/26/2003 Outpatient Historical [facility] Urology- [address] Entrance B, 3rd [place] [address] Ariel Romero MD [address] [phone] BLADDER NECK OBSTRUCTION (Primary Dx); OTHER SPEC DISORDER URINARY TRACT; Slow urinary stream; RENAL & URETERAL DIS NOS Social History Tobacco Use Types Packs/Day Years Used Date Smoking Tobacco: Never Assessed Sex and Gender Information Value Date Recorded Sex Assigned at Not on file 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
--- OUTSIDE RECORDS SUMMARY | 2024-10-15 07:26 | XMS_ITS | Encounter Summary ---
Author Organization [facility] Address [address] [place] [address] Care Team Providers Care Communications Department Head Name Role Phone Phill Howard MD Primary Care Provider [phone] Encounter Details Date Type Department Care Team (Late st Contact Info) Description 09/04/2006 Outpatient Historical [facility] Imaging and Laboratory Services [place] 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
--- OUTSIDE RECORDS SUMMARY | 2024-10-15 07:26 | XMS_ITS | Encounter Summary ---
Author Organization [facility] Address [address] [place] [address] Care Team Providers Care Branch Rental Manager Name Role Phone Phill Howard MD Primary Care Provider [phone] Encounter Details Date Type Department Care Team (Late st Contact Info) Description 09/04/2005 Outpatient Historical [facility] Urology- [address] Entrance B, 3rd [place] [phone] Ariel Romero MD [address] [phone] Malig Jose Manuel Kidney (Primary Dx); Bladder Neck Obstruction; Nocturia Social History Tobacco Use Types Packs/Day Years Used Date Smoking Tobacco: Never Assessed Sex and Gender Information Value Date Recorded Sex Assigned at Not on file 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
--- OUTSIDE RECORDS SUMMARY | 2024-10-15 07:26 | XMS_ITS | Encounter Summary ---
Author Organization [facility] Address [address] [place] [address] Care Team Providers Care River Transportation Worker Name Role Phone Phill Howard MD Primary Care Provider [phone] Encounter Details Date Type Department Care Team (Late st Contact Info) Description 07/18/2003 Emergency [facility] Emergency Department [address] 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
--- OUTSIDE RECORDS SUMMARY | 2024-10-15 07:27 | XMS_ITS | Encounter Summary ---
Author Organization [facility] Address [address] [place] [address] Care Team Providers Care Stitcher Standard Machine Name Role Phone Phill Howard MD Primary Care Provider [phone] Encounter Details Date Type Department Care Team (Late st Contact Info) Description 08/05/2004 Outpatient Historical [facility] Imaging and Laboratory Services [place] [address] [address] [place] [phone] Ariel Romero MD [address] [address] MALIG NEOPL KIDNEY (CMS/HCC) (Primary Dx) Social History Tobacco Use Types Packs/Day Years Used Date Smoking Tobacco: Never Assessed Sex and Gender Information Value Date Recorded Sex Assigned at Not on file 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
--- OUTSIDE RECORDS SUMMARY | 2024-10-15 07:27 | XMS_ITS | Encounter Summary ---
Author Organization [facility] Address [address] [place] [address] Care Team Providers Care Public Health Assistant Name Role Phone Phill Howard MD Primary Care Provider [phone] Encounter Details Date Type Department Care Team (Late st Contact Info) Description 02/09/2004 Outpatient Historical [facility] Imaging and Laboratory Services [place] 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
--- OUTSIDE RECORDS SUMMARY | 2024-10-15 07:27 | XMS_ITS | Clinical Summary ---
Author Organization [facility] Facility Address [address] [address] Care Team Providers Care Rubber Attacher Name Role Phone Phill Howard MD Primary Care Provider [phone] Allergies Active Allergy Reactions Criticality Noted Date Comments Sulfa Antibiotics Rash Low 02/10/2021 Medications omeprazole (PriLOSEC) [address] capsule Take 20 mg by mouth in the morning and 20 mg in the evening. Do not crush or chew. . Active latanoprost (XALATAN) 0.005 % ophthalmic solution instill 1 drop IN EACH EYE ONCE at bedtime 3 Active magnesium (MAGTAB) 84 MG (7MEQ) CR tablet Take 1 tablet by mouth in the morning and 1 tablet in the evening. Active metoprolol tartrate 25 MG tablet Take 25 mg by mouth in the morning and 25 mg in the evening. 3 Active nitroglycerin (NITROSTAT) 0.4 MG SL tablet DISSOLVE 1 TABLET UNDER THE TONGUE EVERY 5 MINUTES NEEDED FOR CHEST PAIN. DO NOT EXCEED A TOTAL OF 3 DOSES IN 15 MINUTES. Active brimonidine (ALPHAGAN) 0.15 % ophthalmic solution Administer 1 drop into the right eye in the morning and 1 drop in the evening. Active clopidogrel (PLAVIX) 75 MG tablet Take 75 mg by mouth 1 (one) time each day 3 Active isosorbide mononitrate (IMDUR) 30 MG 24 hr tablet Take 30 mg by mouth 1 (one) time each day 3 Active cholecalciferol (D3-1000) 25 MCG (1000 UT) capsule Take 1,000 Units by mouth 1 (one) time each day Active Entresto 24-26 MG per tablet Take 1 tablet by mouth in the morning and 1 tablet in the evening. 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 11/22/2022 Coronary arteriosclerosis 10/27/20222022 Gastroesophageal reflux disease 09/15/2022 11/22/2022 Essential hypertension 09/15/2022 Secondary hyperparathyroidism of renal origin Vitamin D deficiency 01/05/2022 Chronic kidney disease, stage 4 (severe) 021 Proteinuria 02/11/2021 History of nephrectomy 02/11/2021 Encounters Date Type Department Care Team Description 08/06/2024 Documentation Only [facility] [address] [place] [phone] Amy Cabrera 08/06/2024 Orders Only [facility], [address] [address] Lilo Smart NP Chronic kidney disease stage 4 (HCC) 08/05/2024 11:00 AM CDT Office Visit [facility], [address] [address] Tita Nixon NP Vitamin D deficiency, not otherwise specified (Primary Dx); Secondary hyperparathyroidism of renal origin (HCC); Persistent proteinuria; Magnesium deficiency; History of nephrectomy; Essential hypertension; Chronic kidney disease, stage 4 (severe) (HCC) 08/05/2024 Patient Outreach [facility] [address] [place] [address] Aym Cabrera 07/31/2024 [facility]phone [facility] [place] [address] [facility] [address] [place] [address] Ester Monet MD from Last 3 Months Family History Medical History Relation Comments Cancer Mother Relation Status Comments Father Mother Social History Tobacco Use Types Packs/Day Years Used Date Smoking Tobacco: Never Smokeless Tobacco: Current Tobacco Cessation:Ready to Q uit: Not Asked; Counseling Given: Not Answered Alcohol Use Standard Drinks/Week Comments Not Currently 0 (1 standard drink = 0.6 oz pur e alcohol) Sex and Gender Information Value Date Recorded Sex Assigned at Not on file Legal Sex Male 1:49 PM EDT Gender Identity Not on file Sexual Orientation Not on file Last Filed Vital Signs Vital Sign Reading Time Taken Comments Blood Pressure 112/64 08/05/2024 10:55 AM CDT Pulse 62 04/08/2024 1:57 PM IOS PROGRAMMER Temperature - - Respiratory Rate - - Oxygen Saturation 92% 04/08/2024 1:57 PM IOS PROGRAMMER Inhaled Oxygen Concentration - - Weight 88.8 kg (195 lb 12.8 oz) 025 10:55 AM CDT Height 182.9 cm (6') 08/05/2024 10:55 AM CDT Body Mass Index 26.56 08/05/2024 10:55 AM CDT Plan of Treatment Upcoming Encounters Date Type Department Care Team (Latest Contact Info) Description 11/05/2024 Orders Only [facility], [address] [address] Tita Nixon NP [address] [facility] [address] [place] [address] Chronic kidney disease, stage 4 (severe) (HCC); Secondary hyperparathyroidism of renal origin (HCC); Vitamin D deficiency, not otherwise specified 11/17/2024 2:30 PM CDT Office Visit [facility], [address] [address] Tita Nixon, TRAINING AND DEVELOPMENT OFFICER [address] [facility] [address] [place] [address] Health Maintenance Due Date Last Done Comments Pneumococcal Vaccine: 50+ Ye ars (2 of 2 - PCV) 05/08/2012 05/08/2011 Influenza Vaccine (#1) 2024 01/31/2021 Hepatitis B Vaccine Aged Out No longe r eligible based on patient's age to complete this topic Procedures Procedure Name Priority Date/Time Associated Diagnosis Comments PTH, INTACT Routine 07/31/2024 9:33 AM CDT Chronic kidney disease stage 4 (HCC) URINE ALBUMIN / CREATININE RATIO Routine 07/31/2024 9:33 AM CDT Chronic kidney disease stage 4 (HCC) CBC Routine 07/31/2024 9:33 AM CDT Chronic kidney disease stage 4 (HCC) RENAL FUNCTION PANEL Routine 07/31/2024 9:33 AM CDT Chronic kidney disease stage 4 (HCC) from Last 3 Months Results * (ABNORMAL) Urine albumin / creatinine ratio (07/31/2024 9:33 AM CDT) Creatinine, Ur 121 20 - 320 mg/dL [facility] Urine Microalbumin 69.3 See Note: mg/dL [facility] Comment: Reference Range: Reference Range Not established Verified by repeat analysis. Microalb/Creat Ratio 573(H) <30 mg/g creat [facility] Comment: The ADA defines abnormalities in albumin excretion as follows: Albuminuria Category Result (mg/g creatinine) Normal to Mildly increased <30 Moderately increased 30-299 Severely increased > OR = 300 The ADA recommends that at least two of three specimens collected within a 3-6 month period be abnormal before considering a patient to be within a diagnostic category. Urine specimen (specimen) 07/31/2024 9:33 AM CDT 07/31/2024 9:33 AM CDT Narrative Resulting Agency Comment Performing Organization Information: Site ID: [id number] Name: Kacie Sylvester Address: [address] [place] [phone] Director: Alfredo Poole MD us Lilo Smart TRAINING AND DEVELOPMENT OFFICER LAB URINE ORDERABLES Alley l Result Performing Organization Address [facility] Co de Phone Number KACIE NAQVI Kacie Sylvester [address] [place] [phone] * CBC (07/31/2024 9:33 AM CDT) WBC 6.7 3.8 - 10.8 Thousand/u L [facility] RBC 4.49 4.20 - 5.80 Million/uL [facility] Hemoglobin 14.2 13.2 - 17.1 g/dL [facility] Hematocrit 44.2 38.5 - 50.0 % [facility] MCV 98.4 80.0 - 100.0 fL [facility] MCH 31.6 27.0 - 33.0 pg [facility] MCHC 32.1 32.0 - 36.0 g/dL [facility] Comment: For adults, a slight decrease in the calculated MCHC value (in the range of 30 to 32 g/dL) is most likely not clinically significant; however, it should be interpreted with caution in correlation with other red cell parameters and the patient's clinical condition. RDW 13.5 11.0 - 15.0 % [facility] Platelets 142 140 - 400 Thousand/u L [facility] MPV 12.0 7.5 - 12.5 fL [facility] Blood specimen (specimen) 07/31/2024 9:33 AM CDT 07/31/2024 9:33 AM CDT Narrative Resulting Agency Comment Performing Organization Information: Site ID: [id number] Name: Kacie Sylvester Address: [address] [place] [phone] Director: Alfredo Poole MD Lilo Smart TRAINING AND DEVELOPMENT OFFICER LAB BLOOD ORDERABLES Alley l Result Performing Organization Address [facility] de Phone Number KACIE [facility] [email or web address] [address] [place] [address] * (ABNORMAL) PTH, intact (07/31/2024 9:33 AM CDT) Parathyroid Hormone, Intact 107(H) 16 - 77 pg/mL [facility] Comment: Interpretive Guide Intact PTH Calcium ------- Normal Parathyroid Normal Normal Hypoparathyroidism Low or Low Normal Low Hyperparathyroidism Primary Normal or High High Secondary High Normal or Low Tertiary High High Non-Parathyroid Hypercalcemia Low or Low Normal High Blood specimen (specimen) 07/31/2024 9:33 AM CDT 07/31/2024 9:33 AM CDT Narrative Resulting Agency Comment Performing Organization Information: Site ID: [id number] Name: [email or web address] Address: [address] [place] [phone] Director: Alfredo Poole MD Lilo Smart NP LAB BLOOD ORDERABLES Alley l Result Performing Organization Address [facility] de Phone Number KACIE [facility] [email or web address] [address] * (ABNORMAL) Renal function panel (07/31/2024 9:33 AM CDT) Pathologist [facility] Glucose 110(H) 65 - 99 mg/dL [facility] Comment: Fasting reference interval For someone without known diabetes, a glucose value between 100 and 125 mg/dL is consistent with prediabetes and should be confirmed with a follow-up test. BUN 50(H) 7 - 25 mg/dL [facility] Creatinine 3.59(H) 0.70 - 1.22 mg/dL [facility] eGFR CKD-EPI CR 2020 16(L) > OR = 60 mL/min/1.7 3m2 [facility] BUN/Creatinine Ratio 14 6 - 22 (calc) [facility] Sodium 139 135 - 146 mmol/L [facility] Potassium 5.1 3.5 - 5.3 mmol/L [facility] Chloride 109 98 - 110 mmol/L [facility] Bicarbonate (CO2) 22 20 - 32 mmol/L [facility] Calcium 8.9 8.6 - 10.3 mg/dL [facility] Phosphorus 3.8 2.1 - 4.3 mg/dL [facility] Albumin 4.0 3.6 - 5.1 g/dL [facility] Blood specimen (specimen) 07/31/2024 9:33 AM CDT 07/31/2024 9:33 AM CDT Narrative Resulting Agency Comment Performing Organization Information: Site ID: [id number] Name: Kacie Sylvester Address: [address] [facility] [place] [address] Director: Alfredo Poole MD Lilo Smart NP LAB BLOOD ORDERABLES Alley l Result [facility] Kacie Sylvester [address] [place] [address] from Last 3 Months Insurance Medicare [facility] [place] [address] Care Teams Rubber Attacher Relationship Specialty Start Date End Date Phill Howard MD [address] [place] [address] PCP - General Family Medicine 10/19/20
--- OUTSIDE RECORDS SUMMARY | 2024-10-15 07:27 | XMS_ITS | Encounter Summary ---
Author Organization [facility] Address [address] [facility] Attn: [place] [address] Care Team Providers Care Sail Finisher Machine Name Role Phone Phill Howard MD Primary Care Provider [phone] Encounter Details Date Type Department Care Team (Late st Contact Info) Description 07/18/2003 Inpatient Historical Ariel Romero MD [address] [phone] COMPLIC-DIGESTIVE SYSTEM (Primary Dx) Social History Tobacco Use Types Packs/Day Years Used Date Smoking Tobacco: Never Assessed Sex and Gender Information Value Date Recorded Sex Assigned at Not on file 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
--- OUTSIDE RECORDS SUMMARY | 2024-10-15 07:27 | XMS_ITS | Encounter Summary ---
Author Organization [facility] Address [address] [facility] [address] [place] [address] Phone Care Team Providers Care Park Attendant Name Role Phone Phill Howard MD Primary Care Provider [phone] Encounter Details Date Type Department Care Team (Late Contact Info) Description 10/19/2020 Orders Only [facility] [address] [facility] [address] [place] [address] Other acute kidney failure (HCC) Social History Tobacco Use Types Packs/Day Years Used Date Smoking Tobacco: Never Assessed Sex and Gender Information Value Date Recorded Sex Assigned at Not on file Legal Sex Male 1:49 PM EDT Gender Identity Not on file Sexual Orientation Not on file documented as of this encounter Plan of Treatment Upcoming Encounters Date Type Department Care Team (Latest Contact Info) Description 11/05/2024 Orders Only [facility], [address] [address] Tita Nixon NP [address] [facility] [address] [place] [address] Chronic kidney disease, stage 4 (severe) (HCC); Secondary hyperparathyroidism of renal origin (HCC); Vitamin D deficiency, not otherwise specified 11/17/2024 2:30 PM CDT Office Visit [facility], [address] [address] Tita Nixon NP [address] [facility] [address] [place] [address] documented as of this encounter Visit Diagnoses Diagnosis Other acute kidney failure (HCC) Chronic kidney disease, stage 4 (severe) (HCC) Secondary hyperparathyroidism of renal origin (HCC) Secondary hyperparathyroidism of renal origin Vitamin D deficiency, not otherwise specified documented in this encounter Care Teams Park Attendant Relationship Specialty Start Date End Date Phill Howard MD [address] [place] [address] PCP - General Family Medicine 10/19/20 documented as of this encounter
--- OUTSIDE RECORDS SUMMARY | 2024-10-15 07:27 | XMS_ITS | Encounter Summary ---
Author Organization [facility] Address [address] [place] [address] Care Team Providers Care Engine Room Operator Name Role Phone Phill Howard MD Primary Care Provider [phone] Encounter Details Date Type Department Care Team (Late st Contact Info) Description 02/09/2004 Outpatient Historical [facility] Urology- [address] Entrance B, 3[address] [place] [phone] Ariel Romero MD [address] [phone] Malig flaco prostate (Primary Dx); BLADDER NECK OBSTRUCTION Social History Tobacco Use Types Packs/Day Years Used Date Smoking Tobacco: Never Assessed Sex and Gender Information Value Date Recorded Sex Assigned at Not on file 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
--- OUTSIDE RECORDS SUMMARY | 2024-10-15 07:27 | XMS_ITS | Encounter Summary ---
Author Organization [facility] Address [address] [place] [address] Care Team Providers Care Master [place] Name Role Phone Phill Howard MD Primary Care Provider [phone] Encounter Details Date Type Department Care Team (Late st Contact Info) Description 08/05/2004 Outpatient Historical [facility] Urology- [address] Entrance B, 3rd [place] [address] Ariel Romero MD [address] [phone] Malig flaco kidney (Primary Dx) Social History Tobacco Use Types Packs/Day Years Used Date Smoking Tobacco: Never Assessed Sex and Gender Information Value Date Recorded Sex Assigned at Not on file 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
--- OUTSIDE RECORDS SUMMARY | 2024-10-15 07:27 | XMS_ITS | Encounter Summary ---
Author Organization [facility] Address [address] [place] [address] Care Team Providers Care Printed Products Assembler Name Role Phone Phill Howard MD Primary Care Provider [phone] Encounter Details Date Type Department Care Team (Late st Contact Info) Description 02/09/2005 Outpatient Historical [facility] [place] [address] [facility] [address] [place] [phone] Ariel Romero MD [address] [address] MALIG NEOPL KIDNEY (CMS/HCC) (Primary Dx) Social History Tobacco Use Types Packs/Day Years Used Date Smoking Tobacco: Never Assessed Sex and Gender Information Value Date Recorded Sex Assigned at Not on file 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
--- OUTSIDE RECORDS SUMMARY | 2024-10-15 07:27 | XMS_ITS | Encounter Summary ---
Author Organization [facility] Address [address] [place] [address] Care Team Providers Care Wood Carving Lathe Operator Name Role Phone Phill Howard MD Primary Care Provider [phone] Encounter Details Date Type Department Care Team (Late st Contact Info) Description 02/09/2005 Outpatient Historical [facility] Urology- [address] Entr[address] B, 3rd [place] [phone] Ariel Romero MD [address] [address] Malig flaco kidney (Primary Dx); BLADDER NECK OBSTRUCTION Social History Tobacco Use Types Packs/Day Years Used Date Smoking Tobacco: Never Assessed Sex and Gender Information Value Date Recorded Sex Assigned at Not on file 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
--- OUTSIDE RECORDS SUMMARY | 2024-10-15 07:27 | XMS_ITS | Encounter Summary ---
Author Organization [facility] Address [address] [place] [address] Care Team Providers Care Hand Slitter Name Role Phone Phill Howard MD Primary Care Provider [phone] Encounter Details Date Type Department Care Team (Late st Contact Info) Description 08/06/2003 Outpatient Historical [facility] Urology- [address] Entrance B, 3rd [place] [address] Ariel Romero MD [address] [phone] Malig flaco kidney (Primary Dx) Social History Tobacco Use Types Packs/Day Years Used Date Smoking Tobacco: Never Assessed Sex and Gender Information Value Date Recorded Sex Assigned at Not on file 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
--- OUTSIDE RECORDS SUMMARY | 2024-10-15 07:27 | XMS_ITS | Encounter Summary ---
Author Organization [facility] Address [address] [place] [address] Care Team Providers Care Master [place] Name Role Phone Phill Howard MD Primary Care Provider [phone] Encounter Details Date Type Department Care Team (Latest Contact Info) Description 08/05/2004 Outpatient Historical [facility] Imaging Services [address] [place] [address] Ariel Romero MD [address] [address] MALIG NEOPL KIDNEY (CMS/HCC) (Primary Dx) Social History Tobacco Use Types Packs/Day Years Used Date Smoking Tobacco: Never Assessed Sex and Gender Information Value Date Recorded Sex Assigned at Not on file Legal Sex 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 Gender Identity Not on file Sexual Orientation Not on file documented as of this encounter Plan of Treatment Not on file documented as of this encounter Procedures Procedure Name Priority Date/Time Associated Diagnosis Comments POC CREATININE Routine 08/05/2004 11:09 AM CDT documented in this encounter Results * (ABNORMAL) POC CREATININE (08/05/2004 11:09 AM CDT) CREATININE POC 1.7(H) 0.7 - 1.5 mg/dL INTERFACE SYSTEM 08/05/2004 11:0 9 AM CDT us Ariel Romero MD POINT OF CARE TESTING F inal Result INTERFACE SYSTEM Refer to clinic/hospital department documented in this encounter Visit Diagnoses Diagnosis Malignant neoplasm of kidney, except pelvis (CMS/HCC)- Primary Malignant neoplasm of kidney, except pelvis documented in this encounter Care Teams Master [place] Relationship Specialty Start Date End Date Phill Howard MD [address] [address] PCP - General 06/23/03 documented as of this encounter
--- NOTE | 2024-10-15 07:35 | ED_ITS ---
HPI - Chest Pain 2 General: Chief Complaint: Chest Pain Stated Complaint: chest pain Time Seen by Provider: 10/15/24 07:20 History of Present Illness: 88-year-old male presents emergency room via walk-in. Patient had episodes of chest pain yesterday and today both times they woke him up from sleep lasted 20 to 30 minutes. Yesterday he took 1 nitro and got better and did not recur. This morning it woke him up from sleep he took an initial nitro after 5 minutes he had no relief took a second nitro and it did improve he rated the pain as having gone from a 9 to a 2. Pain radiated to his back no nausea or vomiting mildly short of breath no diaphoresis. Patient states he previously had a nephrectomy for renal cell cancer he thinks about approximately 70 years ago he had a heart attack was seen in this hospital but declined angiogram because of his kidney function. 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 Chronic kidney disease. There is a hospital visit in October 2022 where patient had an episode of chest pain troponin and BNP were elevated but because of his underlying history of kidney disease and heart failure ultimately they decided not to pursue angiography and he was discharged home with medical management. Reviewing patient's charts I do not find any angiography notes or stress testing. At the time I seen the patient he is pain-free Associated symptoms: Deny abdominal pain, dyspnea or fever(s) Related Data Home Medications ?Medication ?Instructions ?Recorded ?Confirmed latanoprost 0.005 % eye drops 1 drp ophthalmic (eye) B EDTIME 10/23/22 10/15/24 sodium zirconium cyclosilicate 10 10 g PO DAILY PRN h igh potassium 08/27/23 10/15/24 gram oral powder packet ([facility]) clopidogrel 75 mg tablet 75 mg PO DAILY 09/09/2409/24 isosorbide mononitrate 30 mg 30 mg PO DAILY 09/09/24 0 10/15/24 tablet,extended release 24 hr brimonidine 0.2 % eye drops 1 drp ophthalmic (eye) BID 10/15/24 10/15/24 cholecalciferol (vitamin D3) 125 125 mcg PO DAILY 09/2410/15/24 mcg (5,000 unit) tablet (Vitamin D3) magnesium oxide 400 mg (241.3 mg 400 mg PO DAILY PRN b p 10/15/24 10/15/24 magnesium) tablet sacubitril 24 mg-valsartan 26 mg 1 tab PO BID 10/15/24 10/15/24 tablet (Entresto) Previous Rx's ?Medication ?Instructions ?Recorded Night splint to left #1 ea 12/29/20 omeprazole 20 mg capsule,delayed 20 mg PO BIDAC #60 ca ps 10/24/22 release metoprolol tartrate 25 mg tablet 25 mg PO BID #180 tab s 06/26/24 Allergies Allergy/AdvReac Type Severity Reaction Status Date / Time Sulfa (Sulfonamide Allergy Intermediate Rash Verified 09/09/24 10:06 Antibiotics) Review of Systems 2 Const: Denies: fever(s) or chills Card: Denies: chest pain Resp: Denies: dyspnea GI: Denies: abdominal pain : Denies: dysuria, urinary frequency or urinary urgency Musc: Denies: neck pain or back pain Skin/Breast: Denies: rash PFSH ED 2 PFSH: Medical History 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 History of deep venous thrombosis (DVT) of distal vein of left lower extremity Single kidney Glaucoma Elevated brain natriuretic peptide (BNP) level Vitamin D deficiency due to chronic kidney disease CKD (chronic kidney disease) stage 4, GFR 15-29 ml/min GERD (gastroesophageal reflux disease) Hyperparathyroidism due to renal insufficiency History of renal cell cancer Monoclonal gammopathy elevated kappa/lambda ratio, evaluated by Dr Meyer in 08/2021, but made informed decision not to pursue further evaluation or consider potential treatment Surgical History S/P TURP (transurethral resection of prostate) x 2 History of right nephrectomy (2003) Social History Smoking and tobacco/nicotine status: light tobacco/nicotine user smokeless tobacco Smokeless tobacco user: chewing tobacco Smokeless tobacco details: continues to use smokeless tobacco, quit smoking tobacco years ago Alcohol intake: never Substance/Drug Use: never Lives independently: Yes Household members: none Marital status: / Physical Exam 2 Const: COMMON NORMALS: no acute distress GENERAL APPEARANCE: cooperative and comfortable ORIENTATION/CONSCIOUSNESS: Yes awake, Yes oriented to person, Yes oriented to place and Yes oriented to time HENMT: COMMON NORMALS: normocephalic, atraumatic and hearing grossly normal bilaterally HEAD & SCALP: normocephalic and atraumatic Resp: COMMON NORMALS: normal respiratory effort, No retractions, No use of accessory muscles and clear to auscultation bilaterally AUSCULTATION: clear to auscultation bilaterally Cardio: COMMON NORMALS: regular rate, regular rhythm and No murmurs present (Cardio) RATE: regular rate RHYTHM: regular rhythm GI: COMMON NORMALS: Soft to palpation and No hepatosplenomegaly present A USCULTATION: Yes normoactive bowel sounds PALPATION: Yes Soft to palpation, No Tenderness to palpation present (GI), No Guarding due to palpation present (GI) and Yes No hepatosplenomegaly present Extremity: COMMON NORMALS: normal to inspection, capillary refill normal, no clubbing, cyanosis or edema, no calf tenderness and no pedal edema Neuro: SENSORIUM/ORIENTATION: Yes oriented to person, Yes oriented to place and Yes oriented to time Skin: COMMON NORMALS: no rashes or lesions noted GENERAL SKIN EXAM: no rashes or lesions noted Course 2 Vital Signs: Vital signs: Vital Signs Temperature 98.1 F 10/15/24 07:27 Pulse Rate 66 10/15/24 10:21 Respiratory Rate 16 10/15/24 10:21 Blood Pressure 146/77 10/15/24 10:21 Pulse Oximetry 94 10/15/24 10:21 Oxygen Delivery Me thod Room Air 10/15/24 07:27 MDM - Chest Pain Medical Decision Making Patient's presentation is quite concerning. Approximately 2 years ago with similar presentation with elevated troponin at that time angiography was not done because of his concern of renal failure they did not do the angiography and pursued medical management. He does have reduction in his ejection fraction based on previous echoes. He is now having unstable angina will admit the patient to start him on topical nitro he had not taken any of his morning medications yet. Initial troponin is 41. Discussed with on-call cardiology they agree with plan. Admit to Dr. Romero consult cardiology. Medical Records I reviewed the patient's medical records. Lab Data I reviewed the patient's lab results. 10/15/24 07:30 10/15/24 07:50 Radiology Impressions Chest X-Ray 10/15/24 07:20 IMPRESSION: No acute intrathoracic findings. Laboratory Results WBC 9.22 10^3/uL (3.29-11.43) 10/15/24 07:30 RBC 4.79 10^6/uL (3.85-5.65) 10/15/24 07:30 Hgb 15.20 g/dL (11.27-16.99) 10/15/24 07:30 Hct 46.7 % (37-53) 10/15/24 07:30 MCV 97.5 fl (82-101) 10/15/24 07:30 MCH 31.7 pg (27-33) 10/15/24 07:30 MCHC 32.5 g/dL (30-55) 10/15/24 07:30 RDW 13.0 % (12.1-15.1) 10/15/24 07:30 Plt Count 128 10^3/cmm (157-399) L 10/15/24 07:30 MPV 11.1 fL (7.4-10.4) H 10/15/24 07:30 Neut % (Auto) 77.5 % 10/15/24 07:30 Lymph % (Auto) 13.4 % 10/15/24 07:30 Frederick % (Auto) 7.9 % 10/15/24 07:30 Eos % (Auto) 0.5 % 10/15/24 07:30 Baso % (Auto) 0.3 % 10/15/24 07:30 Neut # (Auto) 7.13 10^3/uL (1.8-7.7) 10/15/24 07:30 Lymph # (Auto) 1.2 10^3/uL (0.8-4.8) 10/15/24 07:30 Frederick # (Auto) 0.7 10^3/uL (0.2-0.9) 10/15/24 07:30 Eos # (Auto) 0.1 10^3/uL (0.0-0.8) 10/15/24 07:30 Baso # (Auto) 0.0 10^3/uL (0.0-0.1) 10/15/24 07:30 Nucleated RBC % (auto) 0 % 10/15/24 07:30 Nucleated RBCs # 0.0 /100WBC 10/15/24 07:30 Sodium 138 mmol/L (136-145) 10/15/24 07:50 Potassium 4.5 mmol/L (3.5-5.1) 10/15/24 07:50 Chloride 105 mmol/L (98-107) 10/15/24 07:50 Carbon Dioxide 19 mmol/L (22-29) L 10/15/24 07:50 Anion Gap 18.5 (5-19) 10/15/24 07:50 BUN 38 mg/dL (8-23) H 10/15/24 07:50 Creatinine 3.2 mg/dL (0.7-1.2) H 10/15/24 07:50 GFR Calculation Not Reportable 10/15/24 07:50 Glucose 180 mg/dL (65-115) H 10/15/24 07:50 Calculated Osmolality 300 mOsm/kg (285-295) H 10/15/24 07:50 Calcium 8.7 mg/dL (8.5-10.5) 10/15/24 07:50 Total Bilirubin 0.7 mg/dL (0.15-1.2) 10/15/24 07:50 AST 12 U/L (0-40) 10/15/24 07:50 ALT 6 U/L (0-41) 10/15/24 07:50 Alkaline Phosphatase 55 U/L (40-130) 10/15/24 07:50 Troponin T Baseline 41 ng/L (0-15) H 10/15/24 07:50 Troponin T 120 Minute 37.59 ng/L (0-15) H 10/15/24 09:30 Delta Troponin T -3.41 ABS# (0-10) L 10/15/24 09:30 Total Protein 7.0 g/dL (6.6-8.7) 10/15/24 07:50 Albumin 4.2 g/dL (3.5-5.2) 10/15/24 07:50 Globulin 2.8 g/dL (1.3-4.6) 10/15/24 07:50 All radiology interpretation(s) finalized by discharge EKG Data EKG 1: Interpretation: EKG 10/15/2024 7:20 AM normal sinus rhythm rate of 91 NM interval 161 QTc [address] changes are noted no significant abnormalities. EKG compared to 10/23/2022 Discharge Plan Discharge Patient Disposition: Admitted As Inpatient Clinical Impression: Unstable angina pectoris, Heart failure with mildly reduced ejection fraction (HFmrEF, 41-49%), Atherosclerotic heart disease [place] coronary artery w/angina pectoris, CKD (chronic kidney disease) stage 4, GFR 15-29 ml/min Condition: Stable Coding Level of Care Code ED Commissary Representative for Javang Cezar
[2024-10-15 07:37] LABS: Hematocrit 46.7 % (37-53); Hemoglobin 15.20 g/dL (11.27-16.99); Mean Corpuscular HGB Conc 32.5 g/dL (30-55); Mean Corpuscular Hemoglobin 31.7 pg (27-33); Mean Corpuscular Volume 97.5 fl (82-101); Nucleated Red Blood Cells % 0 %; Platelet Count 128 10^3/cmm (157-399); Red Blood Count 4.79 10^6/uL (3.85-5.65); White Blood Count 9.22 10^3/uL (3.29-11.43)
[2024-10-15 08:14] LABS: Alanine Aminotransferase 6 U/L (0-41); Albumin Level 4.2 g/dL (3.5-5.2); Alkaline Phosphatase 55 U/L (40-130); Aspartate Amino Transferase 12 U/L (0-40); Blood Urea Nitrogen 38 mg/dL (8-23); Calcium 8.7 mg/dL (8.5-10.5); Carbon Dioxide 19 mmol/L (22-29); Chloride 105 mmol/L (98-107); Creatinine Clr Calc Pharmacy 18.3230; Globulin 2.8 g/dL (1.3-4.6); Glucose 180 mg/dL (65-115); Osmolality Calculated 300 mOsm/kg (285-295); Sodium 138 mmol/L (136-145); Total Protein 7.0 g/dL (6.6-8.7)
[2024-10-15 08:15] LABS: Troponin(5th) Baseline 41 ng/L (0-15)
[2024-10-15 08:18] LABS: Anion Gap 18.5 (5-19); Potassium 4.5 mmol/L (3.5-5.1)
--- NOTE | 2024-10-15 09:20 | ECG_ITS ---
[facility] Date: 2024-10-15 Pat Name: Elvin Sanchez Department: Room: Gender: Male Radiochemical Technician: : 1935 Requested By: Lokesh Brice Order Number: [id number] Chuck MD: Bill Zimmerman M.D. Measurements Intervals [place] Rate: 69 P: 47 ID: [id number] QRS: 14 QRSD: 95 T: 16 QT: 357 QTc: 383 Interpretive Statements SINUS RHYTHM Compared to ECG 10/15/2024 07:20:14 No significant changes Electronically Signed On 10-18-2024 15:13:05 CDT by Erasmo [email or web address]
--- NOTE | 2024-10-15 09:30 | USCV_ITS ---
Elvin Sanchez Age: 88 Gender: M : 1935 Exam Date: 10/15/2024 10:21 Ordering Phys: Lokesh Islas DO Technologist: GEORGE [place] [facility] [place]: Unstable Angina BP: 173 / 80 HR: 60 Rhythm: Sinus Technical Quality: Adequate MEASUREMENTS (Male / Female) Normal Values 2D ECHO LVOT Diameter 2.1 cm LV Ejection Fraction MOD 4C 63.7 % LV Ejection Fraction MOD 2C 45.4 % LV Ejection Fraction 2C AL 46.8 % LA Diameter 4.0 cm RA Systolic Volume 4C AL 23.8 ml RA Systolic Volume 4C MOD 22.7 ml LA Sys Volume AL 57.5 cm cubed LA Sys Volume Index AL 27.5 cm cubed/m squared Aorta at Sinotubular Diameter 2.9 cm M-MODE LA Ao Ratio MM 1.3 AV Cusp Separation MM 2.2 cm DOPPLER AV Peak Velocity 119.0 cm/s LVOT Peak Velocity 69.0 cm/s AV Area Cont Eq vti 2.6 cm squared AV Area Cont Eq pk 2.0 cm squared MV Peak Velocity 102.0 cm/s MV Area PHT 3.0 cm squared Mitral E to A Ratio 0.6 TR Peak Velocity 101.0 cm/s TR Peak Gradient 4.1 mmHg TV Peak E Velocity 53.0 cm/s PV Peak Velocity 104.0 cm/s FINDINGS Left Ventricle Normal left ventricular size and wall thickness. There is hypokinesis of the basal inferior wall segment with overall mildly reduced ejection fraction of approximately 50%. There is grade 1 left ventricular diastolic dysfunction which is normal for the patient's age. Right Ventricle The right ventricle is normal in size and function. Right Atrium The right atrium is normal in size. Left Atrium The left atrium is normal in size. Mitral Valve Structurally normal mitral valve with no mitral valve stenosis or regurgitation. Aortic Valve The aortic valve is structurally normal with no stenosis. There is mild aortic valve regurgitation. Tricuspid Valve Structurally normal tricuspid valve without significant stenosis or regurgitation. Pulmonary artery systolic pressure cannot be accurately estimated due to lack of TR jet. Pulmonic Valve Structurally normal pulmonic valve without significant stenosis. There is no pulmonic regurgitation. Pericardium Normal pericardium without effusion. Aorta Normal ascending aorta dimension. IVC The inferior vena cava is not well-visualized. CONCLUSIONS 1. Mild left ventricular systolic dysfunction with estimated ejection fraction of 50%. Regional wall motion abnormality in the basal inferior wall segment. 2. Mild aortic valve regurgitation Bill Zimmerman (Electronically Signed) Final Date: 15 October 2024 17:31 S
[2024-10-15] MEDS: nitroglycerin 1 gm/inch oint Pkt 0.5 INCH TOPICAL (09:37)
[2024-10-15 10:02] LABS: Troponin 5 2HR 37.59 ng/L (0-15)
[2024-10-15 10:03] LABS: Troponin 5 2HR Delta -3.41 ABS# (0-10)
--- NOTE | 2024-10-15 10:39 | P.CONIM_ITS ---
<Statement entered by Bill Zimmerman MD - 10/15/24 15:55> Patient was evaluated and cared for in conjunction with an advanced practice practitioner.? I personally examined the patient and reviewed the chart and all pertinent data including imaging, telemetry, and laboratory results.? I discussed the patient in detail with the advanced practice practitioner.? Please see? their note for complete consult note, testing results and agreed upon plan of care for the patient. Any additional corrections, assessments and recommendations will be listed below. GENERAL: Patient is alert, awake and oriented x3. NECK: No JVD or carotid bruit HEART: Regular S1 and S2, no murmur LUNGS: Clear to auscultation bilaterally. EXTREMITIES: Lower extremities with out edema bilaterally. ASSESSMENT AND PLAN: The patient developed recurrent chest pain while in the emergency room. A repeat EKG was obtained which I personally reviewed and showed mild ST elevation in the inferior leads. We ordered an IV nitroglycerin drip and also IV fluids to prepare the patient for more urgent left heart catheterization. I have discussed the case with the interventional list and we will proceed with left heart catheterization late this afternoon. Patient is agreeable and understands the risks including possible temporary versus permanent hemodialysis. Benefit of doing the heart catheterization is preventing further myocardial infarction and cardiac . Preliminary echocardiogram report performed by myself reveals hypokinesis of the basal inferoseptal and basal inferior wall segments with overall mildly reduced left ventricular systolic function with an ejection fraction of approximately 47%. This is not significantly changed compared to last echocardiogram. Please feel free to call with any questions or concerns. My cell number is [phone]. Providers/Reason For Consult 2 Consulting Physician/Specialty*: Dr Zimmerman, cardiology Reason for Consult*: chest pain Requesting Physician: Dr. Islas Attending Physician: Dr. Romero Primary Care Provider: Phill Howard MD History of Present Illness History of Present Illness Elvin Sanchez is a 88 year old male with past medical history of CAD with angina pectoris, history of PVCs, CKD with solitary kidney (s/p nephrectomy due to renal cell carcinoma ), hypertension. He presented to the emergency room this morning after awakening out of sleep at 4 AM with chest pain. He experienced chest pain with exertion yesterday mowing the lawn, he took 2 nitroglycerin with little relief. Chest pain finally resolved after the third nitroglycerin and rest. It is typical chest pain, located in the center of the chest radiating to the back. He does not have any worsening shortness of breath, lower extremity edema, orthopnea, nausea or diaphoresis. Troponin series: 41-> 37, 6hr currently due. Most recent echocardiogram 09/04/2023: LVEF 49%, grade 1 diastolic dysfunction, mild diffuse hypokinesia of the LV, mild mitral regurgitation with mild prolapse of the posterior mitral leaflet. EKGs today show sinus rhythm, no acute ST or T wave changes. He is currently chest pain-free. Blood pressure is hypertensive, 140s to 150s/70-80s. He sees software design manager Dr. Ester Monet. Review of Systems 2 Const: Denies: fever(s), chills, change in weight, fatigue or diaphoresis Eyes: Denies: change in vision ENMT: Denies: epistaxis Card: Reports: chest pain (0400 today and with exertion yesterday); Denies: palpitations, irregular heart rhythm, edema, syncope, pre-syncope, dyspnea on exertion, orthopnea or leg pain with exertion Resp: Denies: dyspnea, productive cough or wheezing GI: Denies: nausea, vomiting, hematemesis, hematochezia or melena : Denies: hematuria Musc: Denies: extremity swelling Mina/Lymph: Denies: easy bruising or easy bleeding Medications/Allergies Home Medications ?Medication ?Instructions ?Recorded ?Confirmed ?Last Taken ?Type Night splint to left #1 ea 12/29/20 10/15/24 Unkn own Rx latanoprost 0.005 % eye drops 1 drp ophthalmic (eye) B EDTIME 10/23/22 10/15/24 10/14/24 History omeprazole 20 mg capsule,delayed 20 mg PO BIDAC #60 ca ps 10/24/22 10/15/24 10/15/24 Rx release sodium zirconium cyclosilicate 10 10 g PO DAILY PRN h igh potassium 08/27/23 10/15/24 Unknown History gram oral powder packet ([facility]) metoprolol tartrate 25 mg tablet 25 mg PO BID #180 tab s 06/26/24 10/15/24 10/15/24 Rx clopidogrel 75 mg tablet 75 mg PO DAILY 09/09/2409/2410/15/24 History isosorbide mononitrate 30 mg 30 mg PO DAILY 09/09/24 0 10/15/24 10/15/24 History tablet,extended release 24 hr brimonidine 0.2 % eye drops 1 drp ophthalmic (eye) BID 10/15/24 10/15/24 10/14/24 History cholecalciferol (vitamin D3) 125 125 mcg PO DAILY 09/2410/15/24 10/15/24 History mcg (5,000 unit) tablet (Vitamin D3) magnesium oxide 400 mg (241.3 mg 400 mg PO DAILY PRN b p 10/15/24 10/15/24 10/15/24 History magnesium) tablet sacubitril 24 mg-valsartan 26 mg 1 tab PO BID 10/15/24 10/15/24 10/15/24 History tablet (Entresto) Allergies Allergy/AdvReac Type Severity Reaction Status Date / Time Sulfa (Sulfonamide Allergy Intermediate Rash Verified 09/09/24 10:06 Antibiotics) PFSH Acute 2 PFSH: Medical History 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 History of deep venous thrombosis (DVT) of distal vein of left lower extremity Single kidney Glaucoma Elevated brain natriuretic peptide (BNP) level Vitamin D deficiency due to chronic kidney disease CKD (chronic kidney disease) stage 4, GFR 15-29 ml/min GERD (gastroesophageal reflux disease) Hyperparathyroidism due to renal insufficiency History of renal cell cancer Monoclonal gammopathy elevated kappa/lambda ratio, evaluated by Dr Meyer in 08/2021, but made informed decision not to pursue further evaluation or consider potential treatment Surgical History S/P TURP (transurethral resection of prostate) x 2 History of right nephrectomy (2003) Social History Smoking and tobacco/nicotine status: light tobacco/nicotine user smokeless tobacco Smokeless tobacco user: chewing tobacco Smokeless tobacco details: continues to use smokeless tobacco, quit smoking tobacco years ago Alcohol intake: never Substance/Drug Use: never Lives independently: Yes Household members: none Marital status: / Vitals/I&O/Wt Last Vital Signs Temp 98.1 F 10/15/24 07:27 Pulse 66 10/15/24 10:21 Resp 16 10/15/24 10:21 BP 146/77 10/15/24 10:21 Pulse Ox 94 10/15/24 10:21 O2 Del Method Room Air 10/15/24 07:27 Weight last 48 hrs Weight 190 lb Physical Exam 2 Const: COMMON NORMALS: no acute distress and patient oriented x3 GENERAL APPEARANCE: cooperative and comfortable ORIENTATION/CONSCIOUSNESS: Yes awake, Yes oriented to person, Yes oriented to place and Yes oriented to time Chest: COMMONS NORMALS: normal inspection of the chest and normal palpation of entire chest wall CHEST: Yes Symmetrical chest wall rise Resp: COMMON NORMALS: normal respiratory effort, No retractions, No use of accessory muscles and clear to auscultation bilaterally EFFORT & INSPECTION: Yes symmetric chest movement AUSCULTATION: clear to auscultation bilaterally Cardio: COMMON NORMALS: regular rate, regular rhythm, S1 normal heart sound present, S2 normal heart sound present, No gallops present (Cardio), No clicks present (Cardio), No murmurs present (Cardio) and No rub (Cardio) RATE: r egular rate RHYTHM: regular rhythm HEART SOUNDS: S1 normal heart sound present and S2 normal heart sound present PERIPHERAL PULSES: radial pulses present Extremity: COMMON NORMALS: no pedal edema Neuro: COMMON NORMALS: patient oriented x3 and moves all extremities S ENSORIUM/ORIENTATION: Yes oriented to person, Yes oriented to place and Yes oriented to time Data 10/15/24 07:30 10/15/24 07:50 A&P Assessment and plan 1. Atherosclerotic heart disease [place] coronary artery w/angina pectoris: 2. Heart failure with mildly reduced ejection fraction (HFmrEF, 41-49%): 3. Unstable angina pectoris: 4. Secondary hypertension due to renal disease: 5. CKD (chronic kidney disease) stage 4, GFR 15-29 ml/min: 6. Single kidney: Plan: He appears to have unstable angina, with troponin elevation. Will start heparin infusion to run over the next 48 hours. We had detailed discussion with the patient regarding options for medical management versus coronary angiogram. The risk of temporary or permanent dialysis with performing coronary angiogram was discussed and patient is willing to proceed. Will request our hospitalist service consult nephrology for optimization prior to procedure tomorrow. N.p.o. after midnight tonight. Will plan for coronary angiogram at 0830 tomorrow morning. Continue metoprolol, Plavix, hold Entresto for now. PDMP PDMP Reviewed: Not Reviewed Coding Level of Care Code Acute Code for Chg Fwd Diagnoses Atherosclerotic heart disease [place] coronary artery w/angina pectoris I25.119 Heart failure with mildly reduced ejection fraction (HFmrEF, 41-49%) I50.20 Unstable angina pectoris I20.0 Secondary hypertension due to renal disease I15.1 CKD (chronic kidney disease) stage 4, GFR 15-29 ml/min N18.4 Single kidney Z90.5
--- NOTE | 2024-10-15 10:52 | P.HP_ITS ---
Providers/Chief Complaint 2 Primary Care Provider: Phill Howard MD Chief Complaint: chest pain History of Present Illness Elvin Sanchez is a 88 year old male patient with chronic kidney disease, coronary artery disease, cardiomyopathy (EF previously 43% ? 49% on August 2023 echocardiogram), hypertension, hyperparathyroidism, GERD, monoclonal gammopathy, and history of renal cell carcinoma status-post nephrectomy, presenting after two nocturnal episodes of substernal chest pain radiating to the back. The first episode (last night) resolved after one sublingual nitroglycerin; the second (this morning) required two nitroglycerin doses for relief, prompting ED presentation. Review of systems was otherwise negative for fever, chills, respiratory or gastrointestinal symptoms, hematuria, or dysuria. He reports no orthopnea, paroxysmal nocturnal dyspnea, or significant exertional dyspnea; left-leg swelling is chronic since a prior blood clot. In the ED: BP 173/80 mmHg, HR 79 bpm, RR 16, T 98.1 ?F, SpO? 94 % on room air. Labs show chronic mild thrombocytopenia (platelets 128 K/?L), bicarbonate 19 mEq/L, anion gap 18.5, BUN 38 mg/dL, creatinine 3.2 mg/dL, glucose 180 mg/dL; electrolytes and liver panel otherwise unremarkable. EKG shows sinus rhythm (official read pending). Chest X- ray shows no acute intrathoracic process. He received aspirin 324 mg, nitroglycerin paste ?-inch, and remains on his home anti-anginal and antihypertensive regimen. Direct Marketing Manager consult and echocardiogram have been ordered; discussion is pending regarding diagnostic angiography versus non- invasive stress testing given renal risk. Review of Systems 2 Const: Denies: fever(s), chills, body aches or malaise ENMT: Denies: throat pain Card: Reports: chest pain and edema; Denies: pre-syncope or dyspnea on exertion Resp: Denies: dyspnea, productive cough, change in phlegm color or hemoptysis GI: Denies: abdominal pain, nausea, vomiting, diarrhea, constipation, hematochezia or melena : Denies: flank pain, difficulty urinating, urinary frequency or hematuria Musc: Denies: back pain, joint swelling or joint redness Skin/Breast: Denies: rash or new lesions Neuro: Denies: headache(s) or confusion Medications/Allergies Home Medications ?Medication ?Instructions ?Recorded ?Confirmed ?Last Taken ?Type Night splint to left #1 ea 12/29/20 10/15/24 Unkn own Rx latanoprost 0.005 % eye drops 1 drp ophthalmic (eye) B EDTIME 10/23/22 10/15/24 10/14/24 History omeprazole 20 mg capsule,delayed 20 mg PO BIDAC #60 ca ps 10/24/22 10/15/24 10/15/24 Rx release sodium zirconium cyclosilicate 10 10 g PO DAILY PRN h igh potassium 08/27/23 10/15/24 Unknown History gram oral powder packet ([facility]) metoprolol tartrate 25 mg tablet 25 mg PO BID #180 tab s 06/26/24 10/15/24 10/15/24 Rx clopidogrel 75 mg tablet 75 mg PO DAILY 09/09/2409/2410/15/24 History isosorbide mononitrate 30 mg 30 mg PO DAILY 09/09/24 0 10/15/24 10/15/24 History tablet,extended release 24 hr brimonidine 0.2 % eye drops 1 drp ophthalmic (eye) BID 10/15/24 10/15/24 10/14/24 History cholecalciferol (vitamin D3) 125 125 mcg PO DAILY 09/2410/15/24 10/15/24 History mcg (5,000 unit) tablet (Vitamin D3) magnesium oxide 400 mg (241.3 mg 400 mg PO DAILY PRN b p 10/15/24 10/15/24 10/15/24 History magnesium) tablet sacubitril 24 mg-valsartan 26 mg 1 tab PO BID 10/15/24 10/15/24 10/15/24 History tablet (Entresto) Allergies Allergy/AdvReac Type Severity Reaction Status Date / Time Sulfa (Sulfonamide Allergy Intermediate Rash Verified 09/09/24 10:06 Antibiotics) PFSH Acute 2 PFSH: Medical History 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 History of deep venous thrombosis (DVT) of distal vein of left lower extremity Single kidney Glaucoma Elevated brain natriuretic peptide (BNP) level Vitamin D deficiency due to chronic kidney disease CKD (chronic kidney disease) stage 4, GFR 15-29 ml/min GERD (gastroesophageal reflux disease) Hyperparathyroidism due to renal insufficiency History of renal cell cancer Monoclonal gammopathy elevated kappa/lambda ratio, evaluated by Dr Meyer in 08/2021, but made informed decision not to pursue further evaluation or consider potential treatment Surgical History S/P TURP (transurethral resection of prostate) x 2 History of right nephrectomy (2003) Social History Smoking and tobacco/nicotine status: light tobacco/nicotine user smokeless tobacco Smokeless tobacco user: chewing tobacco Smokeless tobacco details: continues to use smokeless tobacco, quit smoking tobacco years ago Alcohol intake: never Substance/Drug Use: never Lives independently: Yes Household members: none Marital status: / Vitals/I&O/Wt Last Vital Signs Temp 98.1 F 10/15/24 07:27 Pulse 66 10/15/24 10:21 Resp 16 10/15/24 10:21 BP 146/77 10/15/24 10:21 Pulse Ox 94 10/15/24 10:21 O2 Del Method Room Air 10/15/24 07:27 Weight last 48 hrs Weight 86.183 kg Physical Exam 2 Const: COMMON NORMALS: patient oriented x3 and alert GENERAL APPEARANCE: c ooperative ORIENTATION/CONSCIOUSNESS: Yes awake HENMT: COMMON NORMALS: oropharynx normal Neck/C-Spine: COMMON NORMALS: no JVD Resp: COMMON NORMALS: normal respiratory effort and clear to auscultation bilaterally AUSCULTATION: clear to auscultation bilaterally Cardio: COMMON NORMALS: no JVD, regular rhythm, S1 normal heart sound present, S2 normal heart sound present and No murmurs present (Cardio) RHYTHM: regular rhythm HEART SOUNDS: S1 normal heart sound present and S2 normal heart sound present GI: COMMON NORMALS: Normal to inspection, nondistended, normoactive bowel sounds present, Soft to palpation and non-tender PALPATION: Yes Soft to palpation Extremity: COMMON NORMALS: no joint enlargement GENERAL: Yes edema (Trace edema right, 1+ edema in left) Neuro: COMMON NORMALS: patient oriented x3 and moves all extremities S ENSORIUM/ORIENTATION: Yes alert Skin: COMMON NORMALS: no rashes or lesions noted GENERAL SKIN EXAM: no rashes or lesions noted Data 10/15/24 07:30 10/15/24 07:50 A&P Assessment and plan 1. Angina at rest: Acute chest pain : Two nocturnal episodes relieved by nitroglycerin; concern for unstable angina vs non-ST elevation ACS. Sinus rhythm on initial EKG, troponin pending. Pain currently resolved. Reviewed vitals, CBC, CMP, baseline troponin, chest x-ray, EKG with sinus rhythm on my interpretation, pending official read. Discussed with ED provider, reviewed ED provider note. - Monitor on telemetry for recurrent pain or arrhythmia. - Serial EKGs and cardiac enzymes per protocol. - Continue nitroglycerin PRN chest pain; oxygen as needed. - Continue on initiated aspirin, continue Plavix. Monitor for risk of bleeding with thrombocytopenia. Continue statin, beta-sebas. - Cardiology consultation underway. - Obtain lower extremity venous duplex ultrasound. History of DVT. Consider additional assessment with VQ scan. 2. CKD (chronic kidney disease) stage 4, GFR 15-29 ml/min: Chronic kidney disease stage >= : Baseline creatinine 3.2 mg/dL; at risk for contrast-induced nephropathy if angiography pursued. - Trend renal function daily. - Ensure adequate volume status/IV hydration before any contrast study. Monitor for risk of fluid overload with history of chronic CHF. - Minimize contrast volume if angiography performed; consider iso-osmolar contrast. - Avoid nephrotoxic agents. 3. 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 4. Atherosclerotic heart disease [place] coronary artery w/angina pectoris: Known CAD with prior decline of angiography due to renal risk. Current event raises concern for progression or new critical lesion. - Continue dual antiplatelet therapy: aspirin 324 mg given in ED; continue home clopidogrel. Continue maintenance aspirin. - Maintain anti-anginal medications: continue Imdur. - Echocardiogram ordered; results pending. - Discuss diagnostic pathway (angiography vs pharmacologic stress test) with cardiology, balancing contrast nephropathy risk. 5. Ventricular arrhythmia: History of. Plan: Congestive heart failure with reduced ejection fraction : EF improved to 49 % on prior echo; presently hemodynamically stable. Not currently in exacerbation. - Continue guideline-directed medical therapy: Entresto, metoprolol. - Await repeat echocardiogram for current EF and valvular status. - Monitor weight, intake/output, and signs of volume overload. Past DVT: Noted DVT on venous duplex ultrasound in May. He still has persistent swelling worse on the left. - Obtain duplex ultrasound. - Consider VQ scan with chest pain. - D-dimer would not be useful. Hypertension : BP 173/80 mmHg on arrival. - Continue home Amlodipine; resume oral antihypertensives as tolerated. - Monitor BP; adjust therapy per cardiology/medicine recommendations. Chronic mild thrombocytopenia : Platelets 128 K/?L, consistent with prior labs. - No immediate intervention; continue to monitor platelets. - Evaluate bleeding risk if invasive procedure planned. Gastroesophageal reflux disease : Chronic; stable. - Continue Omeprazole. History of monoclonal gammopathy, further workup not pursued. PDMP PDMP Reviewed: Not Reviewed Attestations 2 Medical Necessity Statement*: Place in observation for additional assessment and management of angina addressed underlying with underlying CAD, cardiomyopathy, chronic CHF, chronic kidney disease, solitary kidney, thrombocytopenia and additional comorbidities as above. and High MDM includes amount and/or complexity of data reviewed/ordered [ previous or external records, resulted lab(s)/test(s), ordered lab(s)/test(s) and other healthcare professional discussion] and described risk of complication, morbidity or mortality of management as documented Diagnoses Angina at rest I20.89 CKD (chronic kidney disease) stage 4, GFR 15-29 ml/min N18.4 Single kidney Z90.5 Atherosclerotic heart disease [place] coronary artery w/angina pectoris I25.119 Ventricular arrhythmia I49.9
--- NOTE | 2024-10-15 10:59 | USCV_ITS ---
Elvin Sanchez Age: 88 Gender: M : 1935 Exam Date: 10/15/2024 12:50 Ordering Phys: Herson Romero MD Technologist: STEPHANIE [place] [facility] [place] r/o dvt HISTORY: History of deep venous thrombosis. PROCEDURES: Venous duplex imaging was performed in bilateral lower extremities. The following venous structures were evaluated: common femoral vein, profunda vein, proximal portion of the greater saphenous vein, superficial femoral vein, and the popliteal vein. In addition, the posterior tibial and peroneal trunk were evaluated. FINDINGS: Normal 2-D Doppler and augmentation and compressibility throughout the lower extremity venous structures. Additional imaging through the proximal calf veins also reveals no thrombus. Limited evaluation of the greater saphenous vein is patent with no thrombus. CONCLUSIONS No DVT bilateral lower extremities. Dr. Sharon Oquendo DO (Electronically Signed) Final Date: 15 October 2024 13:43 S
[2024-10-15] MEDS: heparin 5,000 unit/mL INJ 1 mL IVP (13:44)
[2024-10-15] MEDS: heparin drip 25,000 UNIT/500 ML PREMIX 24 UNIT IV (13:46)
--- NOTE | 2024-10-15 13:59 | ECG_ITS ---
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 Measurements Intervals [place] Rate: 74 P: 42 VT: 153 QRS: 22 QRSD: 94 T: 38 QT: 358 QTc: 399 Interpretive Statements SINUS RHYTHM ST ELEVATION, CONSIDER INFERIOR INJURY [MARKED ST ELEVATION W/O NORMALLY INFLECTED T-WAVE IN II/aVF] Compared to ECG 10/15/2024 09:21:05 ST (T wave) deviation now present Myocardial infarct finding now present Electronically Signed On 10-16-2024 09:11:15 CDT by Hong Lockhart M.D. [email or web address]
--- NOTE | 2024-10-15 14:35 | ECG_ITS ---
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 Measurements Intervals [place] Rate: 73 P: 53 MA: 161 QRS: 42 QRSD: 94 T: 60 QT: 345 QTc: 381 Interpretive Statements SINUS RHYTHM NONSPECIFIC T-WAVE ABNORMALITY Compared to ECG 10/15/2024 13:59:45 T-wave abnormality now present ST (T wave) deviation no longer present Myocardial infarct finding no longer present Electronically Signed On 10-16-2024 09:02:55 CDT by Hong Lokchart M.D. [email or web address]
[2024-10-15] MEDS: nitroglycerin drip 50 MG/250 ML PREMIX 10 MG IV (15:01)
--- NOTE | 2024-10-15 15:04 | XACV_ITS ---
Exam Room: [facility] Ht: 183 cm Wt: 86 kg BSA: 2.10 m2 Gender: Male : 1935 Any Known Allergies: Sulfa Exam Priority: Routine Procedure(s): Procedure Description: Diagnostic procedure Procedure Description: PCI procedure Procedure Description: Coronary IVUS Procedure Description: Drug Eluting Coronary Stent Procedure Description: PTCA Procedure Description: Miscellaneous Procedure Description: ACT Procedure Description: Coronary Angiography Diagnostic Cath Status: Urgent Diagnostic Findings * Left Main: Moderate 40-50% stenosis, HERNAN: 3 flow. * Proximal Left Anterior Descending: significant 80-90% stenosis, HERNAN: 3 flow. * Proximal Right Coronary Artery: chronic total occlusion, HERNAN: 0 flow. * Proximal Circumflex: moderate 50% stenosis, HERNAN: 3 flow. * 1st Diagonal: obstructive 70% stenosis, HERNAN: 3 flow. * First Obtuse Marginal Branch Segment: critical 95% stenosis, HERNAN: 3 flow. * Coronary angiography shows right dominance. PCI Status: Urgent PCI Indication: NSTE - ACS Interventional Findings * Procedure detail:We engaged left main artery with XB 3.5 guide catheter. IV heparin was administered to maintain anticoagulation. Run-through wire was used to cross LAD stenosis. IVUS was performed to size the stent and assess left main artery. Left main artery distally has borderline significant stenosis at 5.8 mm2. We decided to medically manage left main artery for now given his renal dysfunction and borderline significant stenosis. We predilated proximal LAD with 2.5 x 12 mm NC balloon. This was followed by placement of 2.75 x 18 mm drug-eluting stent. We postdilated the stent with 3.0 x 8 mm NC balloon. Final IVUS was performed that showed excellent stent expansion. We dilated ostial diagonal artery with 2.5 x 12 mm semicompliant balloon. We then placed vessel into OM branch. We predilated the stenosis with 2.5 x 12 mm semicompliant balloon. This was followed by placement of 2.5 x 18 mm resolute Annie drug-eluting stent. IVUS was performed to confirm good stent expansion. Guidewire and guide catheter were removed. Patient left the Screen Printing Inspector in the stable condition.. * Proximal Left Anterior Descendin% stenosis treated with a MDT NC EUPHORA RX [id number] BALLOON, MDT R ANNIE 2.75X18 MANISH, and MDT NC EUPHORA RX [id number] BALLOON. 0% residual stenosis, HERNAN: 3 flow. * Proximal Circumflex: 50% stenosis treated with a AB TREK 2.50X12 RX BALLOON. 0% residual stenosis, HERNAN: 3 flow. * 1st Diagonal: 70% stenosis treated with a AB TREK 2.50X12 RX BALLOON. 0% residual stenosis, HERNAN: 3 flow. * First Obtuse Marginal Branch Segment: 95% stenosis treated with a AB TREK 2.50X12 RX BALLOON, and MDT R ANNIE 2.5X18 MANISH. 0% residual stenosis, HERNAN: 3 flow. Conclusions 1. Severe multivessel coronary artery disease. IVUS of left main artery showed borderline significant stenosis. Decision made to treat culprit vessels ie LAD and OM for now. If patient has symptoms in future, we will proceed with left main intervention. Status post PCI of proximal LAD with 1 stent. Status post PCI of OM1 with 1 stent. 2. Proximal Left Anterior Descending was treated with a Balloon, Drug Eluting Stent, and Balloon. 3. Proximal Circumflex was treated with a Balloon. 4. 1st Diagonal was treated with a Balloon. 5. First Obtuse Marginal Branch Segment was treated with a Balloon, and Drug Eluting Stent. Recommendations * Dual antiplatelet therapy with aspirin and plavix for atleast 1 year. * High intensity statin therapy. * Outpatient cardiology follow up in 2 weeks. Interventional RX Recommendation: PCI w/o planned CABG Diagnostic RX Recommendation: PCI w/o planned CABG Anticoagulation: Heparin Pressures Phase:Rest AO : 105 / 62 ( 84 ) @ 5:19:00 PM 105 / 66 ( 85 ) @ 5:21:00 PM 106 / 53 ( 77 ) @ 5:43:00 PM 106 / 56 ( 79 ) @ 5:48:00 PM 109 / 59 ( 82 ) @ 5:53:00 PM 108 / 56 ( 79 ) @ 6:05:00 PM Clinical Evaluation EBL: 5mL-10mL Procedural Details Procedure Consent Obtained. Current Diagnosis : Chest Pain. Pre-Procedure Time Out. Identified patient by full name and date of as verbalized by the patient/guarantor. Does the consent match the physician's order: Yes. Accurate & Complete Informed Consent: Yes. Inpatient/Outpatient History & Physical on Chart: Yes. If H&P is completed, is and addenduem needed: No; If yes, is the addendum complete: N/A. Visualize and Verify Site with Patient/Guarantor: N/A. Relevant Radiology Images available: Yes. Pre-op teaching completed and patient verbalized understanding. The risks, benefits, and alternatives of sedation and/or procedure were discussed by physician. The patient agrees to continue. Procedure started. Physician arrived. HA Clinical Fraility Score: 3: Managing Well. HA Clinical Fraility Score: 4: Vulnerable. Screen Printing Inspector Indications: Worsening Angina. Correct patient, site and procedure confirmed by cath team. Current diagnosis: Unstable angina. PERRLA. Strong, equal hand wrap checker bilaterally. Lungs clear x 5 lobes. IV Site on Arrival: 18 gauge in the left hand. IV Site on Arrival: 18 gauge in the right anticubital. IV Fluids: 0.9% NaCl at KVO. 0 mL infused prior to label machine operator. Pre Procedural Pulses: right radial was 3+. Oxygen started at 2liters/min via nasal canula. right groin was prepped with chloroprep then draped in the usual sterile fashion. right radial was prepped with chloroprep then draped in the usual sterile fashion. Baseline sample Acquired. HR: 77 BPM. Physician scrubbed in. Immediate Pre-Procedure Time Out. Correct Patient: Yes; Correct Procedure: Yes; Correct Site: Yes; Correct Patient Position: Yes; Correct Supplies: Yes; Dried Flammable Prep: Yes; Blood Products Available: N/A;. Lidocaine 1% infiltrated to the right radial. Arterial access obtained. A 5 tongan TIG catheter in over wire. Wire out. Glidewire inserted. Wire out. Multiple views taken of right coronary artery. Catheter redirected to the LCA. Multiple views taken of left coronary artery. Catheter removed over the exchange wire. A TR Band was successful obtaining hemostatsis at the Right Radial artery insertion site. Lidocaine 1% infiltrated to the right groin. Arterial access obtained with micropuncture set. 6 tongan JR 4 guide catheter was inserted over the wire. Runthrough guidewire was advanced through the guide catheter to lesion in the prox RCA. Wire out. Laminator Hand 50 guidewire was advanced through the guide catheter to lesion in the prox RCA. Wire out. Guide catheter out. ACT drawn. Results 290 seconds. Therapeutic limits - pre-heparin administration 90-150 seconds and monitoring heparin during a vascular procedure >250 seconds. 6 tongan XB 3.5 guide catheter was inserted over the wire. Runthrough guidewire was advanced through the guide catheter to lesion in the prox LAD. IVUS catheter inserted OTW and advanced to the LAD. IVUS measurements obtained. IVUS catheter out OTW. AP Pads placed on patient. Balloon inserted to lesion in the prox LAD. Inflation number : 1 A MDT NC EUPHORA RX [id number] BALLOON was prepped and advanced across the Prox LAD , then inflated to 10 FRANCES for 0:11 seconds. Inflation number: 2 The MDT NC EUPHORA RX [id number] BALLOON was reinflated across the Prox LAD, to 12 FRANCES for 0:12 seconds. Inflation number: 3 The MDT NC EUPHORA RX [id number] BALLOON was reinflated across the Prox LAD, to 12 FRANCES for 0:19 seconds. Balloon out. Stent inserted to lesion in the prox LAD. Inflation Number : 4 A BEREKET R ANNIE 2.75X18 MANISH -Lot Number# _[id number] LOT# 09/12/2026 was prepped and advanced across the Prox LAD. The stent was deployed at 12 FRANCES for 0:15 seconds. Stent balloon out over wire. Results checked. IVUS catheter inserted OTW and advanced to the LAD. IVUS measurements obtained. IVUS catheter out OTW. Inflation number : 5 A MDT NC EUPHORA RX [id number] BALLOON was prepped and advanced across the Prox LAD , then inflated to 12 FRANCES for 0:13 seconds. Inflation number: 6 The MDT NC EUPHORA RX [id number] BALLOON was reinflated across the Prox LAD, to 16 FRANCES for 0:20 seconds. Balloon out. Results checked. Wire redirected to the Diag. Inflation number : 1 A AB TREK 2.50X12 RX BALLOON was prepped and advanced across the 1st Diag , then inflated to 8 FRANCES for 0:14 seconds. Balloon out. Patient's family updated. Wire redirected to the OM. A second Runthrough wire inserted. The first Runthrough out. Inflation number: 1 The AB TREK 2.50X12 RX BALLOON was reinflated across the 1st Ob Estella, to 8 FRANCES for 0:13 seconds. Balloon out. Results checked. Inflation Number : 2 A MDT R ANNIE 2.5X18 MANISH -Lot Number# _[id number] EXP: 06/03/2027 was prepped and advanced across the 1st Ob Estella. The stent was deployed at 12 FRANCES for 0:17 seconds. Results checked. IVUS catheter inserted OTW and advanced to the OM. IVUS measurements obtained. IVUS catheter out OTW. Results checked. IVUS catheter inserted OTW and advanced to the CX. IVUS measurements obtained. IVUS catheter out OTW. Inflation number: 1 The AB TREK 2.50X12 RX BALLOON was reinflated across the Prox CX, to 8 FRANCES for 0:12 seconds. Balloon out. Results checked. Wire out. ACT drawn. Results out of range high seconds. Therapeutic limits - pre-heparin administration 90-150 seconds and monitoring heparin during a vascular procedure >250 seconds. Guide catheter out. A Right femoral angiogram was performed to determine safe placement of closure device. A Suture was successful obtaining hemostatsis at the Right Femoral artery insertion site. Post Procedure: Pulses reassessed and unchanged. PERRLA. Strong, equal hand wrap checker bilaterally. No VTE prophylaxis required. Medication's Wasted: Lidocaine 1% = 10 mL. Medication's Wasted: Other = Fentanyl 25 mcg. Total IV fluids: 100 mL. Post-op diagnosis: Stent to LAD and OM. Complications: None. Estimated blood loss: 5mL-10mL. Responsiveness - Normal response to verbal stimuli; alert and oriented, PERRLA. Airway - Unaffected, no intervention required; spontaneous ventilation. Circulation: W/N/L, pulses unchanged. Nausea/Vomiting: No. Procedure completed. Patient transferred by bed to 1st floor. Vital chart was stopped. Access Site Site: Right Radial artery Sheath Size: 6 Fr Hemostasis Method: TR Band Hemostasis Success: Successful Site: Right Femoral artery Sheath Size: 6 Fr Hemostasis Method: Suture Hemostasis Success: Successful Procedure Medications Start: 4:04 PM Stop: 4:04 PM Medication: Versed 1 mg and Fentanyl 25 mcg Amount: 1 Route: I.V. Start: 4:15 PM Stop: 4:15 PM Medication: Nitrogylcerin Amount: 200 mcg Route: I.A. Start: 4:18 PM Stop: 4:18 PM Medication: Heparin Amount: 3000 units Route: I.V. Start: 4:30 PM Stop: 4:30 PM Medication: Heparin Amount: 3000 units Route: I.V. Start: 4:43 PM Stop: 4:43 PM Medication: Versed 1 mg and Fentanyl 25 mcg Amount: 1 Route: I.V. Start: 4:59 PM Stop: 4:59 PM Medication: Heparin Amount: 2000 units Route: I.V. Start: 5:12 PM Stop: 5:12 PM Medication: Heparin Amount: 1000 units Route: I.V. Start: 5:20 PM Stop: 5:20 PM Medication: Fentanyl Amount: 25 mcg Route: I.V. Start: 5:28 PM Stop: 5:28 PM Medication: Plavix Amount: 600 mg Route: P.O. I, the attending physician, have reviewed and verified all procedure medications. Yes, all medications given per verbal order History/Risk Factors Hypertension: Yes Dyslipidemia: No Peripheral Arterial Disease (PAD): No Myocardial Infarction ([place]): No Obesity: No Renal Disease: No Tobacco Use: Current/Recent(w/in 1 year) Prior Interventions PCI: No CABG: No Valve Surgery: No Report Signatures Finalized by Hong Lockhart MD on 10/26/2024 11:06 AM
--- NOTE | 2024-10-15 15:40 | P.CONIM_ITS ---
Providers/Reason For Consult 2 Consulting Physician/Specialty*: [facility]mana/Nephrology Reason for Consult*: CKD 4 Attending Physician: Herson Romero Primary Care Provider: Phill Howard MD History of Present Illness History of Present Illness Elvin Sanchez is a 88 year old male Patient is 88-year-old male with history of chronic kidney disease, coronary artery disease cardiomyopathy with, hypertension, GERD, monoclonal gammopathy renal cell carcinoma status post nephrectomy presented to the hospital due to chest pain. In the ER noted elevated blood pressure, was hypoxic, BUN was 38 creatinine 3.2. Patient has history of CKD with a creatinine seems to be in the 3 range. Patient has elevated troponin, cardiology following the patient and plan for left heart cath today. Review of Systems 2 Narrative: other ROS negative Medications/Allergies Home Medications ?Medication ?Instructions ?Recorded ?Confirmed ?Last Taken ?Type Night splint to left #1 ea 12/29/20 10/15/24 Unkn own Rx latanoprost 0.005 % eye drops 1 drp ophthalmic (eye) B EDTIME 10/23/22 10/15/24 10/14/24 History omeprazole 20 mg capsule,delayed 20 mg PO BIDAC #60 ca ps 10/24/22 10/15/24 10/15/24 Rx release sodium zirconium cyclosilicate 10 10 g PO DAILY PRN h igh potassium 08/27/23 10/15/24 Unknown History gram oral powder packet (kelmi) metoprolol tartrate 25 mg tablet 25 mg PO BID #180 tab s 06/26/24 10/15/24 10/15/24 Rx clopidogrel 75 mg tablet 75 mg PO DAILY 09/09/2409/2410/15/24 History isosorbide mononitrate 30 mg 30 mg PO DAILY 09/09/24 0 10/15/24 10/15/24 History tablet,extended release 24 hr brimonidine 0.2 % eye drops 1 drp ophthalmic (eye) BID 10/15/24 10/15/24 10/14/24 History cholecalciferol (vitamin D3) 125 125 mcg PO DAILY 09/2410/15/24 10/15/24 History mcg (5,000 unit) tablet (Vitamin D3) magnesium oxide 400 mg (241.3 mg 400 mg PO DAILY PRN b p 10/15/24 10/15/24 10/15/24 History magnesium) tablet sacubitril 24 mg-valsartan 26 mg 1 tab PO BID 10/15/24 10/15/24 10/15/24 History tablet (Entresto) Allergies Allergy/AdvReac Type Severity Reaction Status Date / Time Sulfa (Sulfonamide Allergy Intermediate Rash Verified 09/09/24 10:06 Antibiotics) Current Medications Generic Name Dose Route Start Last Admin Trade Name Freq PRN Reason Stop Dose Admin Heparin Sodium/Sodium Chloride 25,000 unit in 500 mls @ 0 mls/hr 10/15/24 13:15 10/15/24 13:46 Heparin Drip IV 13.92 unit/kg/hr CONT MATT 24 mls/hr Protocol Administration Per Protocol Nitroglycerin/Dextrose 50 mg in 250 mls @ 0 mls/hr 10/15/24 14:45 10/15/24 15:01 Nitroglycerin Drip IV 33.33 mcg/min .Q0M MATT 10 mls/hr Protocol Administration Per Protocol Sodium Chloride 1,000 mls @ 100 mls/hr 10/15/24 14:45 10/15/24 15:01 Sodium Chloride 0.9% IV 100 mls/hr .Q10H MATT Administration PFSH Acute 2 PFSH: Medical History (Updated 10/16/24 @ 10:53 by ALTAGRACIA Israel) 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 History of deep venous thrombosis (DVT) of distal vein of left lower extremity Single kidney Glaucoma Elevated brain natriuretic peptide (BNP) level Vitamin D deficiency due to chronic kidney disease CKD (chronic kidney disease) stage 4, GFR 15-29 ml/min GERD (gastroesophageal reflux disease) Hyperparathyroidism due to renal insufficiency History of renal cell cancer Monoclonal gammopathy elevated kappa/lambda ratio, evaluated by Dr Meyer in 08/2021, but made informed decision not to pursue further evaluation or consider potential treatment Surgical History S/P TURP (transurethral resection of prostate) x 2 History of right nephrectomy (2003) Social History Smoking and tobacco/nicotine status: light tobacco/nicotine user smokeless tobacco Smokeless tobacco user: chewing tobacco Smokeless tobacco details: continues to use smokeless tobacco, quit smoking tobacco years ago Alcohol intake: never Substance/Drug Use: never Lives independently: Yes Household members: none Marital status: / Vitals/I&O/Wt Last Vital Signs Temp 98.1 F 10/15/24 07:27 Pulse 64 10/15/24 13:01 Resp 16 10/15/24 13:01 BP 158/89 10/15/24 13:01 Pulse Ox 94 10/15/24 13:01 O2 Del Method Room Air 10/15/24 07:27 Weight last 48 hrs Weight 86.211 kg Weight 86.183 kg Physical Exam 2 Narrative: awake , alert , no distress PPERLA s1s2 rrr per report Lungs clear per report Abd , sodt , non tender No edema Data 10/16/24 02:25 10/16/24 02:25 A&P Assessment and plan 1. CKD (chronic kidney disease) stage 4, GFR 15-29 ml/min: Plan: 1. Chronic kidney disease stage IV: Baseline creatinine seems to be in the 3 range, currently patient has unstable angina and cardiology planning left heart cardiac catheterization. Given his advanced CKD in the setting of solitary kidney, patient carries risk of worsening renal function with possible dialysis requirement. Patient agreed to proceed with left heart cath. Currently receiving IV fluids normal saline at 100 cc an hour, hold CYNTHIA inhibitors and diuretics temporarily. 2. Unstable angina, plan for cardiac catheterization 3. History of CHF, will use as needed diuretics 4. History of prior DVT 5. Metabolic acidosis, mild, monitor for now Patient evaluated using audiovisual cart. Time spent 40 minutes PDMP PDMP Reviewed: Not Reviewed Consult Attestations 2 Medical Necessity Statement: per medicine Coding Level of Care Code Acute Code for Chg Fwd Diagnoses CKD (chronic kidney disease) stage 4, GFR 15-29 ml/min N18.4
--- NOTE | 2024-10-15 15:58 | PC.NURSE ---
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
--- NOTE | 2024-10-15 16:03 | W.PM.OPSUD ---
Surgery/Procedure H&P Update DATE OF PROCEDURE: October 15, 2024 DATE H&P PERFORMED: 10/15/24 H&P UPDATE INFORMATION: I have reviewed H&P completed within last 30 days, I have examined patient prior to procedure and No changes to prior documentation PREOP DIAGNOSIS: Unstable angina PRIMARY INDICATION FOR PROCEDURE: Unstable angina PLANNED PROCEDURE: Left heart cath with possible percutaneous coronary intervention PATIENT REASSESSED PRIOR TO SEDATION, WITH NO CHANGE NOTED: Yes PHYSICAL EXAM: alert, oriented x 3, clear to auscultation bilaterally and regular rate & rhythm AIRWAY EVAL/ANESTHESIA PLAN: normal airway, ASA III, Local Anesthesia, Risks, benefits & alternatives of sedation and/or procedure discussed and Patient agrees to continue as planned ADDITIONAL INFORMATION: Moderate sedation
[2024-10-15 17:02] LABS: Troponin 5 6HR 46.26 ng/L (0-15); Troponin 5 6HR Delta 5.26 ng/L (0-12)
--- NOTE | 2024-10-15 17:56 | PM.PROC ---
Procedure Note: Date of procedure: 10/15/24 Pre-procedure diagnosis: Unstable angina Post-procedure diagnosis: other (Severe multivessel coronary artery disease) Procedure: Indication: Unstable angina. Patient had transient ST elevations in inferior leads. I did discuss with patient and family high risk of contrast-induced nephropathy with possibility of need for dialysis. They understand the risks and benefits and wanted to proceed. Left main artery has distal 40 to 50% stenosis. Proximal LAD has a severe 80 to 90% stenosis at bifurcation of LAD and diagonal vessels. Status post PCI with 1 stent. OM1 has ostial 90% stenosis. Status post successful revascularization with 1 stent. We did perform IVUS of left main artery with MLA of 5.8 cm?. At this time we will medically manage it. In future if he has worsening chest discomfort episodes or RI, can consider high risk PCI with Impella support. RCA has proximal WEAVING TEACHER. Dual antiplatelet therapy with aspirin and plavix IV fluids at 100cc/hour for 12 Performing Provider: Hong Lockhart Estimated blood loss (mL): 10 Complications: None Condition: stable Disposition: floor Coding Level of Care Code Acute Code for Chg Fwd
[2024-10-15 21:03] LABS: Partial Thromboplastin Time > 250.0 SECONDS (23.9-36.7)
[2024-10-16 00:41] LABS: Partial Thromboplastin Time 62.9 SECONDS (23.9-36.7)
[2024-10-16 00:55] VITALS: BP 137/68; PULSE 62; RESP 28; O2SAT 92
[2024-10-16 02:35] LABS: Hematocrit 43.6 % (37-53); Hemoglobin 14.20 g/dL (11.27-16.99); Mean Corpuscular HGB Conc 32.6 g/dL (30-55); Mean Corpuscular Hemoglobin 32.1 pg (27-33); Mean Corpuscular Volume 98.4 fl (82-101); Nucleated Red Blood Cells % 0 %; Platelet Count 101 10^3/cmm (157-399); Red Blood Count 4.43 10^6/uL (3.85-5.65); White Blood Count 9.38 10^3/uL (3.29-11.43)
[2024-10-16 02:47] LABS: Partial Thromboplastin Time 38.4 SECONDS (23.9-36.7)
[2024-10-16 02:52] LABS: Slide Review Slide Review Perform
[2024-10-16 02:55] LABS: Blood Urea Nitrogen 39 mg/dL (8-23); Calcium 8.5 mg/dL (8.5-10.5); Carbon Dioxide 16 mmol/L (22-29); Chloride 106 mmol/L (98-107); Creatinine Clr Calc Pharmacy 19.8859; Glucose 114 mg/dL (65-115); Osmolality Calculated 292 mOsm/kg (285-295); Sodium 136 mmol/L (136-145)
[2024-10-16 02:57] LABS: Anion Gap 18.5 (5-19); Potassium 4.5 mmol/L (3.5-5.1)
--- NOTE | 2024-10-16 03:32 | PC.NURSE ---
Femoral sheath pulled at 0300. Patient educated on sheath pull and placed on continuous vital sign monitoring. Pressure held on site for 20 minutes. No S/S of bleeding present. Site dressed with 4x4 and Tegaderm. Patient educated on post sheath pull protocol, S/S of bleeding. Patient verbalized understanding. Patient then positioned comfortably in bed, call light and bedside table within reach.
[2024-10-16 04:21] VITALS: BP 142/60; PULSE 63; RESP 22; O2SAT 92
[2024-10-16 07:25] VITALS: BP 154/89; PULSE 76; RESP 24; TEMP 37; O2SAT 92
--- NOTE | 2024-10-16 09:07 | PM.PN ---
Subjective Subjective: He reports he is feeling well today. No chest pain or pressure. No shortness of breath. No issues with access site in the right groin. Vitals/I&O/Wt Last Vital Signs Temp 98.6 F 10/16/24 07:25 Pulse 76 10/16/24 07:25 Resp 24 H 10/16/24 07:25 BP 154/89 10/16/24 07:25 Pulse Ox 92 10/16/24 07:25 O2 Del Method Room Air 10/15/24 13:31 10/15/24 10/16/24 10/16/24 22:59 06:59 14:59 Intake Total 1000 / 1000 Balance 1000 / 1000 Weight last 48 hrs Weight 84.992 kg Weight 86.211 kg Weight 86.183 kg Physical Exam Const: COMMON NORMALS: patient oriented x3 and alert GENERAL APPEARANCE: cooperative ORIENTATION/CONSCIOUSNESS: Yes awake HENMT: COMMON NORMALS: oropharynx normal Neck/C-Spine: COMMON NORMALS: no JVD Resp: COMMON NORMALS: normal respiratory effort and clear to auscultation bilaterally AUSCULTATION: clear to auscultation bilaterally Cardio: COMMON NORMALS: no JVD, regular rhythm, S1 normal heart sound present, S2 normal heart sound present and No murmurs present (Cardio) RHYTHM: regular rhythm HEART SOUNDS: S1 normal heart sound present and S2 normal heart sound present GI: COMMON NORMALS: Normal to inspection, nondistended, normoactive bowel sounds present, Soft to palpation and non-tender PALPATION: Yes Soft to palpation Extremity: COMMON NORMALS: no joint enlargement and no pedal edema Neuro: COMMON NORMALS: patient oriented x3 and moves all extremities SENSORIUM/ORIENTATION: Yes alert Skin: COMMON NORMALS: no rashes or lesions noted GENERAL SKIN EXAM: no rashes or lesions noted Data 10/16/24 02:25 10/16/24 02:25 A&P Assessment and plan 1. 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 Reviewed vitals, CBC, PTT, CMP. He is doing well today. No chest pain or pressure, no issues with access site. With high risk of contrast-induced nephropathy with underlying CKD per cardiology continue hospitalization today and reassess renal function in the morning. Reviewed cardiology note, nephrology note. Receiving IV fluid, monitor for risk of fluid overload. Continue aspirin, Plavix, beta-sebas. Monitor telemetry with risk of arrhythmia with reperfusion injury. Lower extremity duplex negative for DVT. Otherwise saturation is good, no tachycardia or other indication of PE. 2. CKD (chronic kidney disease) stage 4, GFR 15-29 ml/min: Reviewed intake and output, BUN, creatinine, electrolytes. Repeat chemistry. Reviewed nephrology note. Appreciate consultation. Receiving IV hydration, monitor for risk of fluid overload. 3. 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 4. Atherosclerosis of [place] coronary artery of [place] heart with angina pectoris: Reviewed echocardiogram Continue medical therapy. 5. Ventricular arrhythmia: History of. Monitor on telemetry. Plan: Congestive heart failure with reduced ejection fraction : EF improved to 49 % on prior echo; presently hemodynamically stable. Not currently in exacerbation. - Continue guideline-directed medical therapy: Entresto, metoprolol. - Reviewed echocardiogram. EF 50%, RWMA in basal inferior wall segment. Mild MVR. - Monitor weight, intake/output, and signs of volume overload. Past DVT: Noted DVT on venous duplex ultrasound in May. He still has persistent swelling worse on the left. - Reviewed duplex ultrasound. No DVT. - Consider VQ scan with chest pain. - D-dimer would not be useful. Hypertension : Removed with resolution of unstable angina. Blood pressure 123/58. - Continue home metoprolol, Entresto. Chronic mild thrombocytopenia : Platelets 101 K/?L on review. Repeat blood counts. - No immediate intervention; continue to monitor platelets. - Evaluate bleeding risk if invasive procedure planned. Gastroesophageal reflux disease : Chronic; stable. - Continue Omeprazole. History of monoclonal gammopathy, further workup not pursued. PDMP PDMP Reviewed: Not Reviewed Attestations Medical Necessity Statement*: Continue admission for assessment and management after unstable angina with transient ST elevation, status post revascularization and gentleman with underlying advanced chronic kidney disease with solitary kidney at risk of contrast nephropathy. and High MDM includes amount and/or complexity of data reviewed/ordered [ previous or external records, resulted lab(s)/test(s), ordered lab(s)/test(s) and other healthcare professional discussion] and described risk of complication, morbidity or mortality of management as documented Diagnoses Angina at rest I20.89 CKD (chronic kidney disease) stage 4, GFR 15-29 ml/min N18.4 Single kidney Z90.5 Atherosclerosis of [place] coronary artery of [place] heart with angina pectoris I25.119 [place] vs. transplanted heart: [place] heart Ventricular arrhythmia I49.9
[2024-10-16] MEDS: brimonidine 0.2% Op Soln 5 mL Btl 1 DROP EYE-BOTH ×2 (09:27→16:47)
--- NOTE | 2024-10-16 09:35 | P.PN_ITS ---
<Statement entered by Hong Lockhart M.D - 10/18/24 11:08> Patient was evaluated and cared for in conjunction with an advanced practice practitioner.? I personally examined the patient and reviewed the chart and all pertinent data including imaging, telemetry, and laboratory results.? I discussed the patient in detail with the advanced practice practitioner.? Please see? their note for complete progress note, testing results and agreed upon plan of care for the patient. Patient is doing well. No further chest pain. Creatinine is stable. Continue observation of renal function for 1 more day. Continue aspirin and plavix. GENERAL: Patient is alert, awake and oriented x3. HEART: Regular S1 and S2 LUNGS: Clear to auscultate bilaterally. CENTRAL NERVOUS SYSTEM: Grossly nonfocal. EXTREMITIES: Lower extremities without edema bilaterally. Subjective 2 Subjective: He underwent coronary angiogram yesterday: Distal left main contained 40 to 50% stenosis (MLA 5.8 cm? by IVUS), 80 to 90% proximal LAD stenosis treated with 1 stent, 90% OM1 stenosis treated with 1 stent. 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 He is chest pain-free this morning. No worsening shortness of breath, lungs are clear, no edema. Blood pressure is controlled. No complications with right femoral cath site. Creatinine 3.0 today, down from 3.2 yesterday. Vitals/I&O/Wt Last Vital Signs Temp 98.6 F 10/16/24 07:25 Pulse 76 10/16/24 07:25 Resp 24 H 10/16/24 07:25 BP 154/89 10/16/24 07:25 Pulse Ox 92 10/16/24 07:25 O2 Del Method Room Air 10/15/24 13:31 10/15/24 10/16/24 10/16/24 22:59 06:59 14:59 Intake Total 1000 / 1000 Balance 1000 / 1000 Weight last 48 hrs Weight 187 lb 6 oz Weight 190 lb 1 oz Weight 190 lb Physical Exam 2 Const: COMMON NORMALS: no acute distress and patient oriented x3 GENERAL APPEARANCE: cooperative ORIENTATION/CONSCIOUSNESS: Yes awake, Yes oriented to person, Yes oriented to place and Yes oriented to time Chest: COMMONS NORMALS: normal inspection of the chest and normal palpation of entire chest wall CHEST: Yes Symmetrical chest wall rise Resp: COMMON NORMALS: normal respiratory effort, No retractions, No use of accessory muscles and clear to auscultation bilaterally AUSCULTATION: clear to auscultation bilaterally Cardio: COMMON NORMALS: regular rate, regular rhythm, S1 normal heart sound present, S2 normal heart sound present, No gallops present (Cardio), No clicks present (Cardio), No murmurs present (Cardio) and No rub (Cardio) RATE: r egular rate RHYTHM: regular rhythm HEART SOUNDS: S1 normal heart sound present and S2 normal heart sound present PERIPHERAL PULSES: radial pulses present positive right 2+ and femoral pulses present positive right 2+ Neuro: COMMON NORMALS: patient oriented x3 and moves all extremities S ENSORIUM/ORIENTATION: Yes oriented to person, Yes oriented to place and Yes oriented to time Skin: WOUNDS: Yes surgical site (no hematoma palpable) Details: no odor Data 10/16/24 02:25 10/16/24 02:25 A&P Assessment and plan 1. Coronary artery disease: 2. 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 CKD (chronic kidney disease) stage 4, GFR 15-29 ml/min: 5. Single kidney: Plan: Due to the high risk of contrast-induced nephropathy will recommend to keep the patient today and observe morning labs tomorrow. Continue to hold Entresto. Continue metoprolol 25 mg twice a day, aspirin, Plavix. PDMP PDMP Reviewed: Not Reviewed Attestations 2 Medical Necessity Statement*: Post left heart cath, monitoring for ELISE given CKD Coding Level of Care Code Acute Code for [facility] Fwd Diagnoses Coronary artery disease I25.10 Heart failure with mildly reduced ejection fraction (HFmrEF, 41-49%) I50.20 Secondary hypertension due to renal disease I15.1 CKD (chronic kidney disease) stage 4, GFR 15-29 ml/min N18.4 Single kidney Z90.5
--- NOTE | 2024-10-16 10:54 | P.PN_ITS ---
Subjective 2 Subjective: Status post left heart cath yesterday, doing well, status post IV fluids pre and post cath on room air currently Medications: Reviewed: Yes Vitals/I&O/Wt Last Vital Signs Temp 98.6 F 10/16/24 07:25 Pulse 76 10/16/24 07:25 Resp 24 H 10/16/24 07:25 BP 154/89 10/16/24 07:25 Pulse Ox 92 10/16/24 07:25 O2 Del Method Room Air 10/15/24 13:31 10/15/24 10/16/24 10/16/24 22:59 06:59 14:59 Intake Total 1000 / 1000 Balance 1000 / 1000 Weight last 48 hrs Weight 84.992 kg Weight 86.211 kg Weight 86.183 kg Physical Exam 2 Narrative: awake , alert , no distress PPERLA s1s2 rrr per report Lungs clear per report Abd , sodt , non tender No edema Data 10/16/24 02:25 10/16/24 02:25 A&P Assessment and plan 1. CKD (chronic kidney disease) stage 4, GFR 15-29 ml/min: Plan: 1. Chronic kidney disease stage IV: Baseline creatinine seems to be in the 3 range, patient followed by nephrology as an outpatient and creatinine seems to be at baseline currently, has solitary kidney. patient's status post left heart cath, received IV fluids pre and post cath, would like to watch patient in the hospital for another 2 days to make sure creatinine remained stable. Holding diuretics, currently on room air 2. Unstable angina, status post left heart cath 3. History of CHF, will use as needed diuretics 4. History of prior DVT 5. Metabolic acidosis, ordered 1 dose of Bicitra Patient evaluated using audiovisual cart. Time spent 40 minutes PDMP PDMP Reviewed: Not Reviewed Attestations 2 Medical Necessity Statement*: Per medicine team Coding Level of Care Code Acute Code for [facility] Fwd Diagnoses CKD (chronic kidney disease) stage 4, GFR 15-29 ml/min N18.4
[2024-10-16] MEDS: citric acid-sodium citrate 30 mL UDC 60 ML PO (11:41)
[2024-10-16 12:00] VITALS: BP 123/58; PULSE 59; RESP 20; TEMP 36.8; O2SAT 96
[2024-10-16 19:56] VITALS: BP 141/70; PULSE 64; RESP 23; TEMP 36.8; O2SAT 93
[2024-10-17] VITALS: BP 123/59; PULSE 73; RESP 24; TEMP 36.6; O2SAT 93
[2024-10-17 04:00] VITALS: BP 153/81; PULSE 82; RESP 23; TEMP 36.8; O2SAT 94
[2024-10-17 04:34] LABS: Hematocrit 40.1 % (37-53); Hemoglobin 13.40 g/dL (11.27-16.99); Mean Corpuscular HGB Conc 33.4 g/dL (30-55); Mean Corpuscular Hemoglobin 32.4 pg (27-33); Mean Corpuscular Volume 96.9 fl (82-101); Nucleated Red Blood Cells % 0 %; Platelet Count 114 10^3/cmm (157-399); Red Blood Count 4.14 10^6/uL (3.85-5.65); White Blood Count 7.67 10^3/uL (3.29-11.43)
[2024-10-17 04:53] LABS: Blood Urea Nitrogen 41 mg/dL (8-23); Calcium 8.3 mg/dL (8.5-10.5); Carbon Dioxide 18 mmol/L (22-29); Chloride 103 mmol/L (98-107); Creatinine Clr Calc Pharmacy 18.9367; Glucose 103 mg/dL (65-115); Osmolality Calculated 292 mOsm/kg (285-295); Sodium 136 mmol/L (136-145)
[2024-10-17 04:56] LABS: Anion Gap 19.3 (5-19); Potassium 4.3 mmol/L (3.5-5.1)
[2024-10-17 07:33] VITALS: BP 156/73; PULSE 75; RESP 16; TEMP 36.6; O2SAT 94
--- NOTE | 2024-10-17 08:04 | P.DS_ITS ---
Discharge Providers Date of Admission: 10/15/24 12:30 Date of Discharge: October 17, 2024 Attending Provider at Admission: Herson Romero Attending Provider at Discharge: Herson Romero Primary Care Provider: Phill Howard MD Diagnoses at Discharge Discharge Diagnosis 1. CKD (chronic kidney disease) stage 4, GFR 15-29 ml/min: 2. Single kidney: 3. Ventricular arrhythmia: 4. Angina at rest: 5. Atherosclerosis of [place] coronary artery of [place] heart with angina pectoris: Reason for Visit Reason for Visit: chest pain Discharge Data Studies Completed and Pending Completed Studies During Hospitalization Category Date Time Status XR chest 1V portable [id number] Stat Exams 10/15/24 07:20 [place] [id number] Stat Ultrasound 10/15/24 10:59 Completed US echo complete [CV. echo complete* [id number]] Stat Ultrasound 10/15/24 09:30 Completed Pending at discharge Category Date Time Status MANAGER OF RECRUITING request for service Routine Exams 10/15/24 15:04 Taken Basic Metabolic Panel AM LABS Lab 10/18/24 04:00 Ordered Complete Blood Count w/Auto AM LABS Lab 10/18/24 04:00 Ordered Platelet Count Q2D Lab 10/19/24 04:00 Ordered Radiology Impressions Chest X-Ray 10/15/24 07:20 IMPRESSION: No acute intrathoracic findings. Laboratory Results WBC 7.67 10^3/uL (3.29-11.43) 10/17/24 03:40 RBC 4.14 10^6/uL (3.85-5.65) 10/17/24 03:40 Hgb 13.40 g/dL (11.27-16.99) 10/17/24 03:40 Hct 40.1 % (37-53) 10/17/24 03:40 MCV 96.9 fl (82-101) 10/17/24 03:40 MCH 32.4 pg (27-33) 10/17/24 03:40 MCHC 33.4 g/dL (30-55) 10/17/24 03:40 RDW 12.7 % (12.1-15.1) 10/17/24 03:40 Plt Count 114 10^3/cmm (157-399) L 10/17/24 03:40 MPV 11.8 fL (7.4-10.4) H 10/17/24 03:40 Neut % (Auto) 74.6 % 10/17/24 03:40 Lymph % (Auto) 12.6 % 10/17/24 03:40 Towns % (Auto) 10.0 % 10/17/24 03:40 Eos % (Auto) 2.1 % 10/17/24 03:40 Baso % (Auto) 0.3 % 10/17/24 03:40 Neut # (Auto) 5.72 10^3/uL (1.8-7.7) 10/17/24 03:40 Lymph # (Auto) 1.0 10^3/uL (0.8-4.8) 10/17/24 03:40 Towns # (Auto) 0.8 10^3/uL (0.2-0.9) 10/17/24 03:40 Eos # (Auto) 0.2 10^3/uL (0.0-0.8) 10/17/24 03:40 Baso # (Auto) 0.0 10^3/uL (0.0-0.1) 10/17/24 03:40 Nucleated RBC % (auto) 0 % 10/17/24 03:40 Nucleated RBCs # 0.0 /100WBC 10/17/24 03:40 APTT 38.4 SECONDS (23.9-36.7) H 10/16/24 02:25 Sodium 136 mmol/L (136-145) 10/17/24 03:40 Potassium 4.3 mmol/L (3.5-5.1) 10/17/24 03:40 Chloride 103 mmol/L (98-107) 10/17/24 03:40 Carbon Dioxide 18 mmol/L (22-29) L 10/17/24 03:40 Anion Gap 19.3 (5-19) H 10/17/24 03:40 BUN 41 mg/dL (8-23) H 10/17/24 03:40 Creatinine 3.2 mg/dL (0.7-1.2) H 10/17/24 03:40 GFR Calculation Not Reportable 10/17/24 03:40 Glucose 103 mg/dL (65-115) 10/17/24 03:40 Calculated Osmolality 292 mOsm/kg (285-295) 10/17/24 03:40 Calcium 8.3 mg/dL (8.5-10.5) L 10/17/24 03:40 Total Bilirubin 0.7 mg/dL (0.15-1.2) 10/15/24 07:50 AST 12 U/L (0-40) 10/15/24 07:50 ALT 6 U/L (0-41) 10/15/24 07:50 Alkaline Phosphatase 55 U/L (40-130) 10/15/24 07:50 Troponin T Baseline 41 ng/L (0-15) H 10/15/24 07:50 Troponin T 120 Minute 37.59 ng/L (0-15) H 10/15/24 09:30 Delta Troponin T -3.41 ABS# (0-10) L 10/15/24 09:30 Troponin T Hi Sens 6Hr 46.26 ng/L (0-15) H 10/15/24 14:45 Troponin T Hi Sens 6Hr Delta 5.26 ng/L (0-12) 10/15/24 14:45 Total Protein 7.0 g/dL (6.6-8.7) 10/15/24 07:50 Albumin 4.2 g/dL (3.5-5.2) 10/15/24 07:50 Globulin 2.8 g/dL (1.3-4.6) 10/15/24 07:50 Vitals Last Vital Signs Temp 97.9 F 10/17/24 07:33 Pulse 75 10/17/24 07:33 Resp 16 10/17/24 07:33 BP 156/73 10/17/24 07:33 Pulse Ox 94 10/17/24 07:33 O2 Del Method Room Air 10/17/24 07:33 Discharge Plan Discharge Patient Disposition: Home Condition: Stable Prescriptions: New aspirin 81 mg Tablet,Delayed Release (Dr/Ec) 81 mg PO DAILY Qty: 90 0RF atorvastatin [Lipitor] 40 mg tablet 40 mg PO QPM Qty: 90 0RF Continued (DME) Night splint to left See Rx Instructions .Route .MEDSUPPLY Qty: 1 0RF Rx Instructions: As directed Lokelma 10 gram powder in packet 10 g PO DAILY PRN (Reason: high potassium) Patient Comments: every other day clopidogrel 75 mg tablet 75 mg PO DAILY isosorbide mononitrate 30 mg tablet extended release 24 hr 30 mg PO DAILY metoprolol tartrate 25 mg tablet 25 mg PO BID Qty: 180 3RF magnesium oxide 400 mg (241.3 mg magnesium) tablet 400 mg PO DAILY PRN (Reason: bp) brimonidine 0.2 % drops 1 drp ophthalmic (eye) BID cholecalciferol (vitamin D3) [Vitamin D3] 125 mcg (5,000 unit) Tablet 125 mcg PO DAILY latanoprost 0.005 % drops 1 drp ophthalmic (eye) BEDTIME omeprazole 20 mg capsule,delayed release(DR/EC) 20 mg PO BIDAC Qty: 60 0RF Held Entresto 24-26 mg tablet 1 tab PO BID Hold Instructions: Resume on 10/24/24. Hold until cardiology appointment Referrals: Ana Lynn NP [Nurse Practitioner, Cardiology] - 10/23/24 2:30 pm Phill Howard MD [Primary Care Provider, [facility]] - 10/21/24 10:15 am Discharge Diet: Cardiac Discharge Activity: Increase activity as tolerated and Limit activity as instructed Patient Instructions: Aspirin (By mouth), Atorvastatin (By mouth), Coronary Artery Disease (DC), Coronary Angioplasty (DC), Opioid Safety, Post Angiogram Home Care Instructions, Patient Portal & Danial Instructions Activity Restrictions/Additional Instructions: Please follow-up with cardiology for reassessment after unstable angina, reassessment of access site, blood counts and renal function. Follow-up with your primary doctor for reassessment as well. Hold Entresto until cardiology appointment. Please continue aspirin and Plavix. Do not discontinue these medications unless instructed to do so by a physician. Seek medical attention in case of any return of chest pain any issues at the right groin access site or any other worsening or new concerning symptoms. As discussed avoid lifting more than 3 pounds for 2 days. Coding Level of Care Code Acute Code for [facility] Fwd Diagnoses CKD (chronic kidney disease) stage 4, GFR 15-29 ml/min N18.4 Single kidney Z90.5 Ventricular arrhythmia I49.9 Angina at rest I20.8 Atherosclerosis of [place] coronary artery of [place] heart with angina pectoris I25.119 [place] vs. transplanted heart: [place] heart
--- NOTE | 2024-10-17 09:03 | PM.PN ---
Subjective Subjective: He reports he is doing all right today. Denies chest pain or pressure. No trouble breathing. No issues with access site in the right groin. Vitals/I&O/Wt Last Vital Signs Temp 97.9 F 10/17/24 07:33 Pulse 75 10/17/24 07:33 Resp 16 10/17/24 07:33 BP 156/73 10/17/24 07:33 Pulse Ox 94 10/17/24 07:33 O2 Del Method Room Air 10/17/24 07:33 10/16/24 10/17/24 10/17/24 22:59 06:59 14:59 Intake Total 580 / 1239.833 120 / 120 Balance 580 / 1239.833 120 / 120 Weight last 48 hrs Weight 89.403 kg Weight 84.992 kg Weight 86.211 kg Physical Exam Const: COMMON NORMALS: patient oriented x3 and alert GENERAL APPEARANCE: cooperative ORIENTATION/CONSCIOUSNESS: Yes awake HENMT: COMMON NORMALS: oropharynx normal Neck/C-Spine: COMMON NORMALS: no JVD Resp: COMMON NORMALS: normal respiratory effort and clear to auscultation bilaterally AUSCULTATION: clear to auscultation bilaterally Cardio: COMMON NORMALS: no JVD, regular rhythm, S1 normal heart sound present, S2 normal heart sound present and No murmurs present (Cardio) RHYTHM: regular rhythm HEART SOUNDS: S1 normal heart sound present and S2 normal heart sound present GI: COMMON NORMALS: Normal to inspection, nondistended, normoactive bowel sounds present, Soft to palpation and non-tender PALPATION: Yes Soft to palpation Extremity: COMMON NORMALS: no joint enlargement and no pedal edema OTHER: Groin access site dressing. No pulsatile mass. Minimal bruising. No bleeding. Neuro: COMMON NORMALS: patient oriented x3 and moves all extremities SENSORIUM/ORIENTATION: Yes alert Skin: COMMON NORMALS: no rashes or lesions noted GENERAL SKIN EXAM: no rashes or lesions noted Data 10/17/24 03:40 10/17/24 03:40 A&P Assessment and plan 1. CKD (chronic kidney disease) stage 4, GFR 15-29 ml/min: Reviewed intake and output, BUN, creatinine, electrolytes. Slight increase in creatinine up to 3.2 today. BUN 41. Schedule with nephrology with elevated risk of ELISE with CKD, solitary kidney, they do not find he is ready for discharge today pending further renal function reassessment. Repeat chemistry. Reviewed nephrology note. Nephrology further adjusting fluids.. Prior IV NS. Monitor for risk of fluid overload. 2. 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 3. Ventricular arrhythmia: History of. Monitor on telemetry. 4. 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 Reviewed vitals, CBC. Stop prior IV fluid. Nephrology further adjusting fluids. Discussed with cardiology team. He is doing well today. No chest pain or pressure, no issues with access site. With high risk of contrast-induced nephropathy with underlying CKD, reassess renal function in the morning. Reviewed cardiology note, nephrology note. Receiving IV fluid, monitor for risk of fluid overload. Continue aspirin, Plavix, beta-sebas. Monitor telemetry with risk of arrhythmia with reperfusion injury. Lower extremity duplex negative for DVT. Otherwise saturation is good, no tachycardia or other indication of PE. 5. Atherosclerosis of [place] coronary artery of [place] heart with angina pectoris: Reviewed echocardiogram Continue medical therapy. Plan: Congestive heart failure with reduced ejection fraction : EF improved to 49 % on prior echo; presently hemodynamically stable. Not currently in exacerbation. - Continue guideline-directed medical therapy: Entresto, metoprolol. - Reviewed echocardiogram. EF 50%, RWMA in basal inferior wall segment. Mild MVR. - Monitor weight, intake/output, and signs of volume overload. Past DVT: Noted DVT on venous duplex ultrasound in May. He still had persistent swelling worse on the left. - Reviewed duplex ultrasound. No DVT. Has not had any chest pain, saturation has been good. No tachycardia, low suspicion of PE with otherwise explained and treated symptoms as above. Hypertension : Removed with resolution of unstable angina. Blood pressure 123/58. - Continue home metoprolol, hold Entresto until follow-up with cardiology. Chronic mild thrombocytopenia : Platelets 114 K/?L on review. Repeat blood counts. - No immediate intervention; continue to monitor platelets. - Evaluate bleeding risk if invasive procedure planned. Gastroesophageal reflux disease : Chronic; stable. - Continue Omeprazole. History of monoclonal gammopathy, further workup not pursued. PDMP PDMP Reviewed: Not Reviewed Attestations Medical Necessity Statement*: Continue admission for assessment and management after unstable angina with transient ST elevation, status post revascularization and gentleman with underlying advanced chronic kidney disease with solitary kidney at risk of contrast nephropathy. and High MDM includes described risk of complication, morbidity or mortality of management as documented Diagnoses CKD (chronic kidney disease) stage 4, GFR 15-29 ml/min N18.4 Single kidney Z90.5 Ventricular arrhythmia I49.9 Angina at rest I20.89 Atherosclerosis of [place] coronary artery of [place] heart with angina pectoris I25.119 [place] vs. transplanted heart: [place] heart
--- NOTE | 2024-10-17 09:06 | P.PN_ITS ---
Subjective 2 Subjective: no new c/o on RA Medications: Reviewed: Yes Vitals/I&O/Wt Last Vital Signs Temp 97.9 F 10/17/24 07:33 Pulse 75 10/17/24 07:33 Resp 16 10/17/24 07:33 BP 156/73 10/17/24 07:33 Pulse Ox 94 10/17/24 07:33 O2 Del Method Room Air 10/17/24 07:33 10/16/24 10/17/24 10/17/24 22:59 06:59 14:59 Intake Total 580 / 1239.833 120 / 120 Balance 580 / 1239.833 120 / 120 Weight last 48 hrs Weight 89.403 kg Weight 84.992 kg Weight 86.211 kg Physical Exam 2 Narrative: awake , alert , no distress PPERLA s1s2 rrr per report Lungs clear per report Abd , sodt , non tender No edema Data 10/17/24 03:40 10/17/24 03:40 A&P Assessment and plan 1. CKD (chronic kidney disease) stage 4, GFR 15-29 ml/min: Plan: 1. Chronic kidney disease stage IV: Baseline creatinine seems to be in the 3 range, patient followed by nephrology as an outpatient and creatinine seems to be at baseline currently, has solitary kidney. patient's status post left heart cath, received IV fluids pre and post cath, Will give gentle IVFs today and watch another day. Holding diuretics, currently on room air 2. Unstable angina, status post left heart cath 3. History of CHF, will use as needed diuretics 4. History of prior DVT 5. Metabolic acidosis, ordered 1 dose of Bicitra Patient evaluated using audiovisual cart. Time spent 40 minutes PDMP PDMP Reviewed: Not Reviewed Attestations 2 Medical Necessity Statement*: per medicine Coding Level of Care Code Acute Code for [facility] Fwd Diagnoses CKD (chronic kidney disease) stage 4, GFR 15-29 ml/min N18.4
[2024-10-17] MEDS: brimonidine 0.2% Op Soln 5 mL Btl 1 DROP EYE-BOTH ×2 (09:07→18:36)
--- NOTE | 2024-10-17 09:15 | PC.SOCIAL ---
IMM Updated Updated pt on IMM. No questions voiced. Provided pt a copy. Initialed, dated, & timed a copy & placed in chart.
[2024-10-17 11:37] VITALS: BP 155/67; PULSE 73; RESP 17; TEMP 36.6
--- NOTE | 2024-10-17 15:28 | P.PN_ITS ---
<Statement entered by Hong Lockhart M.D - 10/18/24 12:19> Patient was cared for in conjunction with an advanced practice practitioner.? I reviewed the chart and all pertinent data including imaging, telemetry, and laboratory results.? I discussed the patient in detail with the advanced practice practitioner.? Please see?their note for progress note, testing results and agreed upon plan of care for the patient. Subjective 2 Subjective: He has done well overnight. No chest pain or shortness of breath today. Creatinine 3.2 this morning. Entresto remains on hold. Vitals/I&O/Wt Last Vital Signs Temp 97.9 F 10/17/24 11:37 Pulse 73 10/17/24 11:37 Resp 17 10/17/24 11:37 BP 155/67 10/17/24 11:37 Pulse Ox 94 10/17/24 07:33 O2 Del Method Room Air 10/17/24 07:33 10/17/24 10/17/24 10/17/24 06:59 14:59 22:59 Intake Total 180 / 180 Balance 180 / 180 Weight last 48 hrs Weight 197 lb 1.6 oz Weight 187 lb 6 oz Physical Exam 2 Const: COMMON NORMALS: no acute distress and patient oriented x3 GENERAL APPEARANCE: cooperative ORIENTATION/CONSCIOUSNESS: Yes awake, Yes oriented to person, Yes oriented to place and Yes oriented to time Chest: COMMONS NORMALS: normal inspection of the chest and normal palpation of entire chest wall CHEST: Yes Symmetrical chest wall rise Resp: COMMON NORMALS: normal respiratory effort, No retractions, No use of accessory muscles and clear to auscultation bilaterally AUSCULTATION: clear to auscultation bilaterally Cardio: COMMON NORMALS: regular rate, regular rhythm, S1 normal heart sound present, S2 normal heart sound present, No gallops present (Cardio), No clicks present (Cardio), No murmurs present (Cardio) and No rub (Cardio) RATE: r egular rate RHYTHM: regular rhythm HEART SOUNDS: S1 normal heart sound present and S2 normal heart sound present PERIPHERAL PULSES: radial pulses present positive right 2+ and femoral pulses present positive right 2+ Neuro: COMMON NORMALS: patient oriented x3 and moves all extremities S ENSORIUM/ORIENTATION: Yes oriented to person, Yes oriented to place and Yes oriented to time Skin: WOUNDS: Yes surgical site (no hematoma palpable) Details: no odor Data 07/25/25 03:40 10/17/24 03:40 A&P Assessment and plan 1. Coronary artery disease: 2. CKD (chronic kidney disease) stage 4, GFR 15-29 ml/min: 3. Single kidney: 4. Secondary hypertension due to renal disease: Plan: Nephrology recommendation is to keep patient today and observe labs. He is stable from a cardiovascular perspective. Continue aspirin and Plavix, metoprolol. Blood pressure and heart rates controlled. PDMP PDMP Reviewed: Not Reviewed Attestations 2 Medical Necessity Statement*: Plan to discharge tomorrow Coding Level of Care Code Acute Code for Chg Fwd Diagnoses Coronary artery disease I25.10 CKD (chronic kidney disease) stage 4, GFR 15-29 ml/min N18.4 Single kidney Z90.5 Secondary hypertension due to renal disease I15.1
[2024-10-17 16:00] VITALS: BP 155/80; PULSE 66; RESP 20; TEMP 36.6; O2SAT 92
[2024-10-17 22:31] VITALS: BP 149/66; PULSE 61; RESP 23; O2SAT 95
[2024-10-18] VITALS: BP 152/78; PULSE 64; RESP 20; TEMP 36.6; O2SAT 93
[2024-10-18 03:15] LABS: Hematocrit 39.5 % (37-53); Hemoglobin 12.90 g/dL (11.27-16.99); Mean Corpuscular HGB Conc 32.7 g/dL (30-55); Mean Corpuscular Hemoglobin 31.4 pg (27-33); Mean Corpuscular Volume 96.1 fl (82-101); Nucleated Red Blood Cells % 0 %; Platelet Count 108 10^3/cmm (157-399); Red Blood Count 4.11 10^6/uL (3.85-5.65); White Blood Count 7.75 10^3/uL (3.29-11.43)
[2024-10-18 03:34] LABS: Anion Gap 17.7 (5-19); Blood Urea Nitrogen 43 mg/dL (8-23); Calcium 8.5 mg/dL (8.5-10.5); Carbon Dioxide 18 mmol/L (22-29); Chloride 104 mmol/L (98-107); Creatinine Clr Calc Pharmacy 19.5476; Glucose 116 mg/dL (65-115); Osmolality Calculated 292 mOsm/kg (285-295); Potassium 4.7 mmol/L (3.5-5.1); Sodium 135 mmol/L (136-145)
[2024-10-18 04:00] VITALS: BP 150/67; PULSE 76; RESP 23; TEMP 36.7; O2SAT 95
--- NOTE | 2024-10-18 06:40 | PC.NURSE ---
Patient unplugging self from telemetry and getting out of bed to go to bathroom. Iv pulled out of arm, found still attached to jloop and fluids that were running. Patient assisted back to bed, iv site dressed, bed alarm set. Educated patient on need for continuous telemetry, risk for falls, and use of call light. Patient is refusing new Iv at this time, hospitalist notified.
[2024-10-18 07:37] VITALS: BP 121/90; PULSE 84; RESP 20; TEMP 36.6; O2SAT 97
--- NOTE | 2024-10-18 09:09 | P.PN_ITS ---
Subjective 2 Subjective: no new c/o Medications: Reviewed: Yes Vitals/I&O/Wt Last Vital Signs Temp 97.8 F 10/18/24 07:37 Pulse 84 10/18/24 07:37 Resp 20 H 10/18/24 07:37 BP 121/90 10/18/24 07:37 Pulse Ox 97 10/18/24 07:37 O2 Del Method Room Air 10/18/24 07:37 10/17/24 10/18/24 10/18/24 22:59 06:59 14:59 Intake Total 1100 / 1280 Balance 1100 / 1280 Weight last 48 hrs Weight 88.723 kg Weight 89.403 kg Physical Exam 2 Narrative: awake , alert , no distress PPERLA s1s2 rrr per report Lungs clear per report Abd , sodt , non tender No edema Data 10/18/24 03:00 10/18/24 03:00 A&P Assessment and plan 1. CKD (chronic kidney disease) stage 4, GFR 15-29 ml/min: Plan: 1. Chronic kidney disease stage IV: Baseline creatinine seems to be in the 3 range, patient followed by nephrology as an outpatient and creatinine seems to be at baseline currently, has solitary kidney. patient's status post left heart cath, received IV fluids pre and post cath, . Holding diuretics- can resume Sunday , currently on room air arrnage Nephrology follow up appointment in 1-2 weeks , needs BMP nest week 2. Unstable angina, status post left heart cath 3. History of CHF, will use as needed diuretics 4. History of prior DVT 5. Metabolic acidosis, ordered 1 dose of Bicitra Patient evaluated using audiovisual cart. Time spent 40 minutes PDMP PDMP Reviewed: Not Reviewed Attestations 2 Medical Necessity Statement*: per medicne Coding Level of Care Code Acute Code for Chg Fwd Diagnoses CKD (chronic kidney disease) stage 4, GFR 15-29 ml/min N18.4
[2024-10-18 11:56] VITALS: BP 97/79; PULSE 58; RESP 20; TEMP 36.6; O2SAT 96
--- NOTE | 2024-10-18 12:10 | PM.DCS ---
Discharge Providers Date of Admission: 10/15/24 12:30 Date of Discharge: October 18, 2024 Attending Provider at Admission: Herson Romero Attending Provider at Discharge: Madelyn Eduardo MD Primary Care Provider: Phill Howard MD Diagnoses at Discharge Discharge Diagnosis 1. CKD (chronic kidney disease) stage 4, GFR 15-29 ml/min: Reason for Visit Reason for Visit: chest pain Hospital Course Hospital Course Elvin Sanchez is a 88 year old male patient with chronic kidney disease, coronary artery disease, cardiomyopathy (EF previously 43% ? 49% on August 2023 echocardiogram), hypertension, hyperparathyroidism, GERD, monoclonal gammopathy, and history of renal cell carcinoma status-post nephrectomy, presenting after two nocturnal episodes of substernal chest pain radiating to the back. The first episode (last night) resolved after one sublingual nitroglycerin; the second (this morning) required two nitroglycerin doses for relief, prompting ED presentation. Review of systems was otherwise negative for fever, chills, respiratory or gastrointestinal symptoms, hematuria, or dysuria. He reports no orthopnea, paroxysmal nocturnal dyspnea, or significant exertional dyspnea; left-leg swelling is chronic since a prior blood clot. In the ED: BP 173/80 mmHg, HR 79 bpm, RR 16, T 98.1 ?F, SpO? 94 % on room air. Labs show chronic mild thrombocytopenia (platelets 128 K/?L), bicarbonate 19 mEq/L, anion gap 18.5, BUN 38 mg/dL, creatinine 3.2 mg/dL, glucose 180 mg/dL; electrolytes and liver panel otherwise unremarkable. EKG shows sinus rhythm (official read pending). Chest X-ray shows no acute intrathoracic process. He received aspirin 324 mg, nitroglycerin paste ?-inch, and remains on his home anti-anginal and antihypertensive regimen. Tapper Hand consult and echocardiogram have been ordered; discussion is pending regarding diagnostic angiography versus non-invasive stress testing given renal risk. Patient had done remarkably well. Blood pressure is now normotensive. Patient had undergone contrast studies in the setting of chronic renal failure renal function had not been affected. Creatinine has stayed the same as it was 2 years ago at 3.1 today. Patient had no complaints and cardiology had cleared that he can go home. Patient had no complaints. Patient underwent angioplasty with stent placement to the LAD that has both proximal and mid stenosis. Patient left vessel has 40 to 50%. There is a PCI was done HERLINDA with Impella support. Patient had been on Entresto at home and will be discharged on Entresto Case discussed with cardiology and they said it is okay since the renal function had not changed patient in addition to Entresto is being sent home with Plavix, aspirin, atorvastatin, metoprolol. Patient to follow-up with the PCP 10/21/2024 and also with cardiology team on 10/23/2024. Physical Exam Narrative: Patient seen and evaluated this morning very happy and cheerful disposition and looking forward to going home. Patient had no chest pain denies any shortness of breath also had been informed that the renal function is stable even after angioplasty with contrast studies. Creatinine today is 3.1 the same as it was in October 23, 2022. HEENT normocephalic atraumatic neck neck is supple cardiovascular heart rate is regular lungs are pretty much clear abdomen soft nontender nondistended unremarkable extremities are intact no edema has good pulses neurology has no focality lab studies lab studies reviewed and noted. Discharge Data Studies Completed and Pending Completed Studies During Hospitalization Category Date Time Status XR chest 1V portable [id number] Stat Exams 10/15/24 07:20 [place] [id number] Stat Ultrasound 10/15/24 10:59 Completed US echo complete [CV. echo complete* [id number]] Stat Ultrasound 10/15/24 09:30 Completed Pending at discharge Category Date Time Status ACID BLOWER request for service Routine Exams 10/15/24 15:04 Taken Platelet Count Q2D Lab 10/19/24 04:00 Ordered Radiology Impressions Chest X-Ray 10/15/24 07:20 IMPRESSION: No acute intrathoracic findings. Laboratory Results WBC 7.75 10^3/uL (3.29-11.43) 10/18/24 03:00 RBC 4.11 10^6/uL (3.85-5.65) 10/18/24 03:00 Hgb 12.90 g/dL (11.27-16.99) 10/18/24 03:00 Hct 39.5 % (37-53) 10/18/24 03:00 MCV 96.1 fl (82-101) 10/18/24 03:00 MCH 31.4 pg (27-33) 10/18/24 03:00 MCHC 32.7 g/dL (30-55) 10/18/24 03:00 RDW 12.5 % (12.1-15.1) 10/18/24 03:00 Plt Count 108 10^3/cmm (157-399) L 10/18/24 03:00 MPV 11.4 fL (7.4-10.4) H 10/18/24 03:00 Neut % (Auto) 77.2 % 10/18/24 03:00 Lymph % (Auto) 10.3 % 10/18/24 03:00 Taney % (Auto) 10.2 % 10/18/24 03:00 Eos % (Auto) 1.9 % 10/18/24 03:00 Baso % (Auto) 0.1 % 10/18/24 03:00 Neut # (Auto) 5.98 10^3/uL (1.8-7.7) 10/18/24 03:00 Lymph # (Auto) 0.8 10^3/uL (0.8-4.8) 10/18/24 03:00 Taney # (Auto) 0.8 10^3/uL (0.2-0.9) 10/18/24 03:00 Eos # (Auto) 0.2 10^3/uL (0.0-0.8) 10/18/24 03:00 Baso # (Auto) 0.0 10^3/uL (0.0-0.1) 10/18/24 03:00 Nucleated RBC % (auto) 0 % 10/18/24 03:00 Nucleated RBCs # 0.0 /100WBC 10/18/24 03:00 APTT 38.4 SECONDS (23.9-36.7) H 10/16/24 02:25 Sodium 135 mmol/L (136-145) L 10/18/24 03:00 Potassium 4.7 mmol/L (3.5-5.1) 10/18/24 03:00 Chloride 104 mmol/L (98-107) 10/18/24 03:00 Carbon Dioxide 18 mmol/L (22-29) L 10/18/24 03:00 Anion Gap 17.7 (5-19) 10/18/24 03:00 BUN 43 mg/dL (8-23) H 10/18/24 03:00 Creatinine 3.1 mg/dL (0.7-1.2) H 10/18/24 03:00 GFR Calculation Not Reportable 10/18/24 03:00 Glucose 116 mg/dL (65-115) H 10/18/24 03:00 Calculated Osmolality 292 mOsm/kg (285-295) 10/18/24 03:00 Calcium 8.5 mg/dL (8.5-10.5) 10/18/24 03:00 Total Bilirubin 0.7 mg/dL (0.15-1.2) 10/15/24 07:50 AST 12 U/L (0-40) 10/15/24 07:50 ALT 6 U/L (0-41) 10/15/24 07:50 Alkaline Phosphatase 55 U/L (40-130) 10/15/24 07:50 Troponin T Baseline 41 ng/L (0-15) H 10/15/24 07:50 Troponin T 120 Minute 37.59 ng/L (0-15) H 10/15/24 09:30 Delta Troponin T -3.41 ABS# (0-10) L 10/15/24 09:30 Troponin T Hi Sens 6Hr 46.26 ng/L (0-15) H 10/15/24 14:45 Troponin T Hi Sens 6Hr Delta 5.26 ng/L (0-12) 10/15/24 14:45 Total Protein 7.0 g/dL (6.6-8.7) 10/15/24 07:50 Albumin 4.2 g/dL (3.5-5.2) 10/15/24 07:50 Globulin 2.8 g/dL (1.3-4.6) 10/15/24 07:50 Vitals Last Vital Signs Temp 97.9 F 10/18/24 11:56 Pulse 58 L 10/18/24 11:56 Resp 20 H 10/18/24 11:56 BP 97/79 10/18/24 11:56 Pulse Ox 96 10/18/24 11:56 O2 Del Method Room Air 10/18/24 11:56 Discharge Plan Discharge Patient Disposition: Home Condition: Stable Prescriptions: New aspirin 81 mg Tablet,Delayed Release (Dr/Ec) 81 mg PO DAILY Qty: 90 0RF atorvastatin [Lipitor] 40 mg tablet 40 mg PO QPM Qty: 90 0RF nitroglycerin 0.4 mg Tablet, Sublingual 0.4 mg sublingual Q5M PRN (Reason: Chest Pain) Qty: 30 0RF Continued (DME) Night splint to left See Rx Instructions .Route .MEDSUPPLY Qty: 1 0RF Rx Instructions: As directed Lokelma 10 gram powder in packet 10 g PO DAILY PRN (Reason: high potassium) Patient Comments: every other day isosorbide mononitrate 30 mg tablet extended release 24 hr 30 mg PO DAILY metoprolol tartrate 25 mg tablet 25 mg PO BID Qty: 180 3RF magnesium oxide 400 mg (241.3 mg magnesium) tablet 400 mg PO DAILY PRN (Reason: bp) brimonidine 0.2 % drops 1 drp ophthalmic (eye) BID cholecalciferol (vitamin D3) [Vitamin D3] 125 mcg (5,000 unit) Tablet 125 mcg PO DAILY latanoprost 0.005 % drops 1 drp ophthalmic (eye) BEDTIME omeprazole 20 mg capsule,delayed release(DR/EC) 20 mg PO BIDAC Qty: 60 0RF clopidogrel 75 mg tablet 75 mg PO DAILY Qty: 90 0RF Changed Entresto 24-26 mg tablet 1 tab PO BID Qty: 60 0RF Blending Line Attendant OK for DC: Cardiology and Hospitalist Discharge Order = DC NOW: Discharge Order (Routine); Ordered 10/18/24 Ordered By: Madelyn Eduardo Referrals: Ana Lynn NP [Nurse Practitioner, Cardiology] - 10/23/24 2:30 pm Phill Howard MD [Primary Care Provider, Family Practice] - 10/21/24 10:15 am Discharge Diet: Cardiac Discharge Activity: Increase activity as tolerated and Limit activity as instructed Patient Instructions: Aspirin (By mouth), Atorvastatin (By mouth), Coronary Artery Disease (DC), Coronary Angioplasty (DC), Opioid Safety, Post Angiogram Home Care Instructions, Patient Portal & Danial Instructions Activity Restrictions/Additional Instructions: Please follow-up with cardiology for reassessment after unstable angina, reassessment of access site, blood counts and renal function. Follow-up with your primary doctor for reassessment as well. Hold Entresto until cardiology appointment. Please continue aspirin and Plavix. Do not discontinue these medications unless instructed to do so by a physician. Seek medical attention in case of any return of chest pain any issues at the right groin access site or any other worsening or new concerning symptoms. As discussed avoid lifting more than 3 pounds for 2 days. Discharge Attestations Time Spent in Discharge Care*: less than 30 min Quality Metrics Clinical Quality Measures [ Acute Myocardial Infaction { Clinical Trial Participant: No; Contraindication to aspirin: None; Aspirin prescribed; Contraindication to statin: None; Statin prescribed; Contraindication to PCI: None; PCI performed; Contraindication to Fibrinolytics: None; fibrinolytics given}] Coding Level of Care Code 73425 Diagnoses CKD (chronic kidney disease) stage 4, GFR 15-29 ml/min N18.4 Time Spent (min) 30
[2024-10-18 12:36] VITALS: BP 97/79; PULSE 58; RESP 20; TEMP 36.6; O2SAT 96
== END 2024-10-18 12:45 | disposition home or self-care (01) | DRG 322 ==
LOC: ER 11:15 → CSU 12:31
PROVIDERS: Internal Medicine; Admitting Provider Internal Medicine; Emergency Provider Family Medicine; PCP Family Medicine; Visit Provider Internal Medicine
PROC: 02713EZ Dilation of Coronary Artery, Two Arteries with Two Intraluminal Devices, Percutaneous Approach (ICD-10-PCS; principal; 2024-10-15 16:00)
PROC: 02713EZ Dilation of Coronary Artery, Two Arteries with Two Intraluminal Devices, Percutaneous Approach (ICD-10-PCS; 2024-10-15 16:00)
DX: I25.110 Atherosclerotic heart disease of native coronary artery with unstable angina pectoris (principal); N18.4 Chronic kidney disease, stage 4 (severe); I13.0 Hypertensive heart and chronic kidney disease with heart failure and stage 1 through stage 4 chronic kidney disease, or unspecified chronic kidney disease; I50.22 Chronic systolic (congestive) heart failure; E87.20 Acidosis, unspecified; I49.9 Cardiac arrhythmia, unspecified; R09.02 Hypoxemia; D69.6 Thrombocytopenia, unspecified; I25.2 Old myocardial infarction; D47.2 Monoclonal gammopathy; I42.9 Cardiomyopathy, unspecified; I25.82 Chronic total occlusion of coronary artery; F17.220 Nicotine dependence, chewing tobacco, uncomplicated; K21.9 Gastro-esophageal reflux disease without esophagitis; E21.3 Hyperparathyroidism, unspecified; Z85.528 Personal history of other malignant neoplasm of kidney; Z79.899 Other long term (current) drug therapy; Z79.02 Long term (current) use of antithrombotics/antiplatelets; Z88.2 Allergy status to sulfonamides; Z86.718 Personal history of other venous thrombosis and embolism; Z90.5 Acquired absence of kidney
CPT/HCPCS: 36415; 71045; 80048; 80053; 84484; 85025; 85347; 85730; 92920; 92978; 92979; 93005; 93306; 93454; 93970; 96372; 99152; 99153; 99285; C1725; C1753; C1769; C1874; C1887; C1894; C9600; C9601; J1644; J1650; J2250; J3010; J3490; J7030; J9999; Q3014; Q9967

== ENCOUNTER → 2024-10-23 14:22 | Outpatient (BNVA) | payer MEDICARE, OTHER, SELFPAY | PROVIDERS: PCP Family Medicine; Visit Provider Nurse Practitioner Family | DX: I25.10 Atherosclerotic heart disease of native coronary artery without angina pectoris (principal); I15.1 Hypertension secondary to other renal disorders; I13.0 Hypertensive heart and chronic kidney disease with heart failure and stage 1 through stage 4 chronic kidney disease, or unspecified chronic kidney disease; N18.4 Chronic kidney disease, stage 4 (severe); I50.20 Unspecified systolic (congestive) heart failure; Z90.5 Acquired absence of kidney; Z79.02 Long term (current) use of antithrombotics/antiplatelets; Z79.82 Long term (current) use of aspirin; F17.220 Nicotine dependence, chewing tobacco, uncomplicated; Z95.5 Presence of coronary angioplasty implant and graft | CPT/HCPCS: 99213 ==

== ENCOUNTER → 2025-03-10 10:24 | Outpatient (BNVA) | payer MEDICARE, OTHER, SELFPAY | PROVIDERS: PCP Family Medicine; Visit Provider Internal Medicine Cardiovascular Disease | DX: I25.10 Atherosclerotic heart disease of native coronary artery without angina pectoris (principal); I13.0 Hypertensive heart and chronic kidney disease with heart failure and stage 1 through stage 4 chronic kidney disease, or unspecified chronic kidney disease; N18.4 Chronic kidney disease, stage 4 (severe); I50.20 Unspecified systolic (congestive) heart failure; I49.9 Cardiac arrhythmia, unspecified; Z79.02 Long term (current) use of antithrombotics/antiplatelets; Z79.82 Long term (current) use of aspirin; Z86.718 Personal history of other venous thrombosis and embolism; I15.1 Hypertension secondary to other renal disorders | CPT/HCPCS: 99214 ==